=== PATIENT | female | born 1990 | race Caucasian/White ===

== ENCOUNTER → 2017-09-20 | Outpatient (CLI) | payer BC ==
[2017-09-20 16:50] LABS: BASO % 0.9 %; BASO ABS # 0.05 K/uL (0-0.2); EOS % 2.3 %; EOS ABS # 0.13 K/uL (0-0.5); HEMATOCRIT 39.5 % (37-47); HEMOGLOBIN 13.6 g/dL (12.0-16.0); IG# 0.01 K/uL (0.00-0.02); LYMPH ABS # 1.81 K/uL (1.2-3.4); MEAN CELL VOLUME 91.4 fL (80-100); MEAN CORPUSCULAR HEMOGLOBIN 31.5 pg (25-34); MEAN CORPUSCULAR HGB CONC 34.4 g/dl (32-36); MEAN PLATELET VOLUME 10.8 fL (7.4-10.4); MONO % 9.7 %; MONO ABS # 0.55 K/uL (0.11-0.59); NEUT % 54.9 %; PLATELET COUNT 220 K/uL (130-400); RED CELL DISTRIBUTION WIDTH CV 12.6 % (11.5-14.5); RED CELL DISTRIBUTION WIDTH SD 42.6 fL (36.4-46.3); WHITE BLOOD COUNT 5.65 K/uL (4.8-10.8)
[2017-09-20 17:11] LABS: ALBUMIN 4.4 gm/dl (3.4-5.0); AST/SGOT 103 U/L (15-37); BLOOD UREA NITROGEN 12 mg/dl (7-18); CALCIUM 9.1 mg/dl (8.5-10.1); CARBON DIOXIDE 27 mmol/L (21-32); CREATININE 0.76 mg/dl (0.60-1.20); GLUCOSE 87 mg/dl (70-99); POTASSIUM 3.6 mmol/L (3.5-5.1); SODIUM 136 mmol/L (136-145)
[2017-09-20 17:14] LABS: ALKALINE PHOSPHATASE 57 U/L (45-117); ALT/SGPT 184 U/L (12-78); TOTAL PROTEIN 8.3 gm/dl (6.4-8.2)
--- NOTE | 2017-10-04 06:30 | CODING QUERY NO DIAGNOSIS ---
TREATMENT RENDERED WITHOUT A DIAGNOSIS Dr. Velasquez, To promote full compliance with coding requirements relating to patient care, physician participation is requested in all cases of ruffling hemmer automatic uncertainty. Please assist us with providing a diagnosis/symptom for the test(s) below: A diagnosis/symptom was not documented on your Order. A valid diagnosis/symptom is required to bill all insurances. Please remember that we are unable to code a diagnosis of rule out, probable, possible, questionable, or suspected. Tests that require a diagnosis: * CMP DIAGNOSIS: * C-REACTIVE PROTEIN DIAGNOSIS: DATE OF SERVICE: 09/20/17 Provider Signature: Date: Thank you Daniel Pan [facility] Information Management Once completed, please kindly fax back to [phone] For questions please call [phone]
== END | disposition home or self-care (01) ==
LOC: C.LABBC 13:29
PROVIDERS: ATTEND Internal Medicine
DX: K51.00 Ulcerative (chronic) pancolitis without complications (principal); K51.90 Ulcerative colitis, unspecified, without complications

== ENCOUNTER → 2017-10-18 | Outpatient (CLI) | payer BC ==
[2017-10-18 11:26] LABS: ALBUMIN 4.3 gm/dl (3.4-5.0); ALT/SGPT 169 U/L (12-78); AST/SGOT 84 U/L (15-37); BLOOD UREA NITROGEN 9 mg/dl (7-18); CALCIUM 9.2 mg/dl (8.5-10.1); CARBON DIOXIDE 27 mmol/L (21-32); CREATININE 0.77 mg/dl (0.60-1.20); GLUCOSE 78 mg/dl (70-99); SODIUM 137 mmol/L (136-145)
[2017-10-18 11:28] LABS: ALKALINE PHOSPHATASE 56 U/L (45-117); TOTAL PROTEIN 7.9 gm/dl (6.4-8.2)
== END | disposition home or self-care (01) ==
LOC: C.LABBC 08:36
PROVIDERS: ATTEND Internal Medicine
DX: K51.90 Ulcerative colitis, unspecified, without complications (principal)

== ENCOUNTER → 2017-12-04 | Outpatient (CLI) | payer BC ==
[2017-12-04 10:54] LABS: ALBUMIN 4.1 gm/dl (3.4-5.0); ALT/SGPT 155 U/L (12-78); AST/SGOT 77 U/L (15-37); BLOOD UREA NITROGEN 10 mg/dl (7-18); CALCIUM 9.1 mg/dl (8.5-10.1); CARBON DIOXIDE 29 mmol/L (21-32); CREATININE 0.79 mg/dl (0.60-1.20); GLUCOSE 90 mg/dl (70-99); POTASSIUM 3.8 mmol/L (3.5-5.1); SODIUM 139 mmol/L (136-145)
[2017-12-04 10:57] LABS: ALKALINE PHOSPHATASE 55 U/L (45-117); TOTAL PROTEIN 7.5 gm/dl (6.4-8.2)
== END | disposition home or self-care (01) ==
LOC: C.LABBC 08:53
PROVIDERS: ATTEND Internal Medicine
DX: K51.90 Ulcerative colitis, unspecified, without complications (principal); R79.89 Other specified abnormal findings of blood chemistry

== ENCOUNTER → 2017-12-23 | Outpatient (CLI) | payer BC ==
[2017-12-23 13:29] LABS: ALBUMIN 4.2 gm/dl (3.4-5.0); BLOOD UREA NITROGEN 7 mg/dl (7-18); CALCIUM 8.8 mg/dl (8.5-10.1); CARBON DIOXIDE 26 mmol/L (21-32); CREATININE 0.77 mg/dl (0.60-1.20); GLUCOSE 82 mg/dl (70-99); SODIUM 136 mmol/L (136-145)
[2017-12-23 13:33] LABS: ALKALINE PHOSPHATASE 55 U/L (45-117); ALT/SGPT 111 U/L (12-78); AST/SGOT 57 U/L (15-37); TOTAL PROTEIN 7.5 gm/dl (6.4-8.2); TRANSFERRIN 264 mg/dl (200-360)
== END | disposition home or self-care (01) ==
LOC: C.LABBC 09:12
PROVIDERS: ATTEND Internal Medicine
DX: Z00.00 Encounter for general adult medical examination without abnormal findings (principal); K51.90 Ulcerative colitis, unspecified, without complications; R79.89 Other specified abnormal findings of blood chemistry

== ENCOUNTER → 2017-12-24 | Outpatient (CLI) | payer BC ==
--- NOTE | 2017-12-24 08:59 | DIAGNOSTIC IMAGING REPORT ---
ABDOMINAL ULTRASOUND, RIGHT UPPER QUADRANT HISTORY: R79.89 Elevated LFTs [id number]. COMPARISON: None. FINDINGS: Pancreas: The pancreas demonstrates a normal echotexture. Liver: Unremarkable. Gallbladder: No gallbladder wall thickening. No gallstones. CBD: 4 mm. Right kidney: No hydronephrosis. IMPRESSION: No significant abnormality identified within the right upper quadrant. Electronically signed by: Kael Sheth M.D. 12/24/2017 8:58 AM Dictated Date/Time: 12/24/2017 8:57 AM
== END | disposition home or self-care (01) ==
LOC: C.ULTR 08:33
PROVIDERS: ATTEND Internal Medicine
DX: R79.89 Other specified abnormal findings of blood chemistry (principal)

== ENCOUNTER 2019-05-11 14:12 | Inpatient (IN) ==
[2019-05-11] MEDS ORDERED: SODIUM CHLORIDE 0.9% 1000ML 1,000 ML IV ONE (15:10)
--- NOTE | 2019-05-11 15:50 | Emergency Department Note ---
ED Visit Note This patient was seen in concert with Dr. Nickerson and we discussed and agreed upon the history, physical, assessment and plan. See attending's note for details. . Resident Activity Tracking Resident Involvement: Resident Care Provided Care Provided: Adult ED
[2019-05-11 16:16] LABS: Hematocrit (blood only) 38.9 % (37-47); Hemoglobin 13.8 g/dL (12.0-16.0); Mean Corpuscular Hemoglobin 30.9 pg (25-34); Mean Corpuscular Hgb Conc 35.5 g/dL (32-36); Mean Corpuscular Volume 87.2 fL (80-100); Mean Platelet Volume 10.6 fL (7.4-10.4); Platelet Count 188 K/uL (130-400); RDW Coefficient of Variation 17.8 % (11.5-14.5); RDW Standard Deviation 57.3 fL (36.4-46.3); Red Blood Count 4.46 M/uL (4.2-5.4); White Blood Count 2.98 K/uL (4.8-10.8)
[2019-05-11 16:25] LABS: Appearance Urine Clear (Clear); Blood Urine Negative (Negative); Color Urine Dark Yellow; Glucose Urine UA Negative (Negative); Ketones Urine Negative (Negative); Leukocyte Esterase Urine Negative (Negative); Nitrite Urine Negative (Negative); Protein Urine Negative (Negative); Specific Gravity Urine 1.012 (1.000-1.030); Urobilinogen Urine Negative (Negative); pH Urine 6.5 (4.5-7.5)
[2019-05-11 16:31] LABS: Bilirubin Urine 2+ (Negative)
[2019-05-11 16:32] LABS: Ictotest Urine Positive (Negative)
[2019-05-11 16:39] LABS: Basophils # (auto) 0.07 K/uL (0-0.2); Basophils % (auto) 2.2 %; Eosinophils # (auto) 0.04 K/uL (0-0.5); Eosinophils % (auto) 1.2 %; Lymphocytes # (auto) 1.29 K/uL (1.2-3.4); Lymphocytes % (auto) 39.9 %; Monocytes # (auto) 0.76 K/uL (0.11-0.59); Monocytes % (auto) 23.5 %; Neutrophils # (auto) 1.07 K/uL (1.4-6.5); Neutrophils % (auto) 33.2 %
[2019-05-11 16:41] LABS: Pregnancy Test, Serum Negative (Negative)
[2019-05-11 17:06] LABS: Albumin Globulin Ratio 0.5 (0.9-2); Albumin Level 3.1 gm/dl (3.4-5.0); BUN Creatinine Ratio 5.6 (10-20); Calcium 8.8 mg/dl (8.5-10.1); Creatinine Clr Calc Pharmacy 96.1 ml/min; Est GFR (African American) 120.1; Est GFR (Non-African American) 103.6; Globulin 6.4 gm/dl (2.5-4.0); Potassium 3.7 mmol/L (3.5-5.1); Total Protein 9.5 gm/dl (6.4-8.2)
[2019-05-11] MEDS ORDERED: IOVERSOL 100ml IV PRN (17:16)
--- NOTE | 2019-05-11 17:39 | CT Scan Report ---
CT SCAN OF THE ABDOMEN AND PELVIS WITH IV CONTRAST CLINICAL HISTORY: Epigastric abdominal pain. Recent colonoscopy. COMPARISON STUDY: Abdominal ultrasound dated 12/24/2017. TECHNIQUE: Following the IV administration of 91 cc of Optiray 320, CT scan of the abdomen and pelvi s is performed from the lung bases to the proximal femora. Images are reviewed in the axial, sagittal , and coronal planes. IV contrast was administered without complication. A dose lowering technique wa s utilized adhering to the principles of ALARA. CT DOSE: 370.01 mGycm FINDINGS: Lung bases: The heart is normal in size and without pericardial effusion. The lung bases are clear. Liver: The contrast-enhanced liver is normal in size, contour, and attenuation. Fatty infiltration is noted adjacent to the falciform ligament. There is no intrahepatic biliary ductal dilatation. The he patic veins and portal veins are patent. There is periportal edema. Gallbladder: The gallbladder wall is thickened and edematous. The mucosa is hyperemic and there is pe richolecystic inflammation and trace fluid. Spleen: Normal in size and attenuation. Pancreas: Unremarkable. Adrenal glands: Unremarkable. Kidneys: The contrast enhanced kidneys are normal in size and without hydronephrosis. The kidneys enh ance symmetrically. Abdominal vasculature: The abdominal aorta is normal in course and caliber. Bowel: There is mild infiltration identified around the descending colon. No bowel obstruction is see n. The appendix is surgically absent. Peritoneum: There is no intraperitoneal free air or abdominal ascites. There is a small fat-containin g umbilical hernia. Lymphadenopathy: None. Pelvic viscera: The bladder is distended but otherwise normal in appearance. The uterus and adnexa ar e normal as visualized noting bilateral ovarian follicles. Skeletal structures: No lytic or blastic lesions are seen. IMPRESSION: 1. The gallbladder wall is thickened and edematous with associated mucosal hyperemia and pericholecys tic inflammation. Although this could potentially be related to hepatic inflammation and periportal e angela, the appearance is highly concerning for acute cholecystitis. Correlation with clinical findings , liver function studies, and right upper quadrant ultrasound is recommended. 2. Mild infiltration is suggested around the descending colon. This is nonspecific and could represen t a mild colitis or could be related to the reported history of recent colonoscopy. Again, clinical c orrelation will be required. 3. Additional findings as above. Electronically signed by: Homero Victoria M.D. 05/11/2019 5:37 PM
[2019-05-11] MEDS ORDERED: PIPERACILLIN/TAZOBACTAM 4.5 GM/120 ML BAG IV ONE (17:48)
[2019-05-11] MEDS ORDERED: PIPERACILL/TAZOBAC CONSULT ACTIVE PRN (17:48)
--- NOTE | 2019-05-11 19:26 | Emergency Department Note ---
Entered by Carmelita Petersen acting as a scribe for History of Present Illness General Chief complaint: GI Assessment Stated complaint: POST COLONOSCOPY ABD DISTENTION/PAIN Time Seen by Provider: 05/11/19 15:08 Source: patient History of Present Illness Onset (ago): day(s) 2 Location: abdomen Pain Consistency: + other (persistent) Maximum Pain Intensity: 5 Quality: + other (cramping) Exacerbated By: + other (coughing and breathing) Associated symptoms: + denies other symptoms (abnormal stools), + nausea/vomiting (Positive nauesa. Negative vomiting. ) and + other (yellow colored skin, feeling like filling up fast when she eats) The patient is a 28 year old female who presents to the Emergency Room with complaints of persistent abdominal pain starting 2 days ago. The patient states that she has a history of ulcerative colitis and had a colonoscopy done 3 days ago. She states that the day after, she started having abdominal pain and distention. She reports that the pain is mainly in her upper abdomen and is a cramping. She reports that it is worse with coughing and breathing. She states that she called her GI specialist today about it and they were going to order an abdominal x-ray, but decided to send her here instead. She notes that her h usband and she noticed that she was a little yellow in color, but didnt think it was that bad till her coworker asked her if she had had a spray mi. The patient notes that she has had a bowel movement since the colonoscopy. The patient complains of nausea and feeling like when she does eat, she fills up fast. The patient denies vomiting and abnormal stools. Home Medications Home Medications Medication Instructions Recorded Confirmed Type hydroxychloroquine 200 mg PO QAM 03/09/19 05/11/19 History mesalamine 2.4 g PO QAM 03/09/19 05/11/19 History Allergies Allergy/AdvReac Type Severity Reaction Status Date / Time avocado Allergy Hives Unverified 05/11/19 18:28 jhony Allergy Hives Unverified 05/11/19 18:27 Past Med/Surg History Medical History Oritz syndrome History of anesthesia reaction "shakes when coming out of it" History of colon polyps Migraine Systemic lupus erythematosus Ulcerative colitis Surgical History History of appendectomy History of colonoscopy History of esophagogastroduodenoscopy (EGD) History of gastric surgery removal of diverticulum History of liver biopsy 2005--normal History of tooth extraction History of wisdom tooth extraction PEG (percutaneous endoscopic gastrostomy) adjustment/replacement/removal had during gastric surgery, no longer has Family History Mother Family history of reaction to anesthesia nausea/vomiting Uncle Family hx of colon cancer Social History Preferred Language: Portuguese Communication Ability: Effective Inpatient Nursing Aide Required: No Beliefs That Will Affect Care: None marital status: Current Living Situation: Spouse current occupational status: employed Feels Safe at Home: Yes Smoking Status: Never smoker Second Hand Exposure: No ; Hx Alcohol Use: Yes Alcohol type: beer Hx Substance Use: No Review of Systems See HPI for pertinent positives & negatives. and A total of 10 systems reviewed and were otherwise negative Physical Exam Vital Signs Vital Signs - 24 hr 05/11/19 14:28 05/11/19 15:18 05/11/19 15:21 Temperature 37.1 C Temperature Source Oral Sepsis Recent Fever Within 48 Hours No Sepsis New/Unexplained Change in Mental Status No Sepsis Action Taken by Nursing No Action Required Pulse Rate 77 75 83 Pulse Rate from SpO2 Sensor 77 82 Respiratory Rate 20 14 13 Blood Pressure 125/81 128/75 Blood Pressure Mean 95 92 Blood Pressure Position Sitting Pulse Oximetry 100 99 99 Oxygen Delivery Method 05/11/19 15:30 05/11/19 16:00 05/11/19 16:25 Temperature Temperature Source Sepsis Recent Fever Within 48 Hours Sepsis New/Unexplained Change in Mental Status Sepsis Action Taken by Nursing Pulse Rate 80 75 89 Pulse Rate from SpO2 Sensor 82 74 86 Respiratory Rate 18 20 23 Blood Pressure 106/87 Blood Pressure Mean 93 Blood Pressure Position Pulse Oximetry 98 98 100 Oxygen Delivery Method Room Air 05/11/19 16:30 05/11/19 17:00 05/11/19 17:30 Temperature Temperature Source Sepsis Recent Fever Within 48 Hours Sepsis New/Unexplained Change in Mental Status Sepsis Action Taken by Nursing Pulse Rate 89 68 79 Pulse Rate from SpO2 Sensor 87 69 80 Respiratory Rate 17 13 19 Blood Pressure 112/71 106/65 Blood Pressure Mean 84 78 Blood Pressure Position Pulse Oximetry 99 98 99 Oxygen Delivery Method 05/11/19 18:00 05/11/19 18:06 05/11/19 18:30 Temperature Temperature Source Sepsis Recent Fever Within 48 Hours Sepsis New/Unexplained Change in Mental Status Sepsis Action Taken by Nursing Pulse Rate 78 78 65 Pulse Rate from SpO2 Sensor 75 79 67 Respiratory Rate 17 19 15 Blood Pressure 114/67 108/68 Blood Pressure Mean 82 81 Blood Pressure Position Pulse Oximetry 100 94 97 Oxygen Delivery Method GENERAL: sitting up in bed with a yellow hue, no acute distress, nontoxic EYE EXAM: scleral icterus OROPHARYNX: no exudate, no erythema, lips, buccal mucosa, and tongue normal and mucous membranes are moist NECK: supple, no nuchal rigidity, no adenopathy, non-tender LUNGS: Clear to auscultation. Normal chest wall mechanics HEART: no murmurs, S1 normal and S2 normal ABDOMEN: abdomen soft, tender to palpation in the epigastric region, normo- active bowel sounds, no masses, no rebound or guarding. BACK: Back is symmetrical on inspection and there is no deformity, no midline tenderness, no CVA tenderness. SKIN: no rashes and no bruising UPPER EXTREMITIES: upper extremities are grossly normal. LOWER EXTREMITIES: No pitting edema. NEURO EXAM: Normal sensorium, cranial nerves II-XII grossly intact, normal speech, no gross weakness of arms, no gross weakness of legs. Course ED COURSE: Vital signs were reviewed and showed that they were normal. The patients medical record was reviewed The above diagnostic studies were performed and reviewed. ED treatments and interventions as stated above. 1511: The resident, Amelia Boston, evaluated the patient at this time. She performed a complete history and physical examination at this time. 1539: The patient was evaluated in room C3. A complete history and physical examination was performed. 1747: Upon reevaluation, the patient is resting comfortably. I discussed my findings with the patient and she understands and agrees with the treatment plan. Based on the patients age, coexisting illnesses, exam and lab findings the decision to treat as an inpatient was made. The patient remained stable while under my care. The patient will be evaluated for further management. 1748: I discussed the patient's case with Dr. Horvath- General Surgeon. He recommends admitting to medicine and he will consult. 1750: I discussed the patient's case with Dr. Carbone- [facility] Hospitalist. She will evaluate the patient for further management. 1759: I discussed the patient's case with Dr. Gloria FELIPE. He will consult that patient on the floor. Consultations Consultation #1: I discussed the patient's case with Dr. Horvath- General Surgeon. He recommends admitting to medicine and he will consult. Time: 17:48 Consultation #2: I discussed the patient's case with Dr. Carbone- [facility] Hospitalist. She will evaluate the patient for further management. Time: 17:50 Consultation #3: I discussed the patient's case with Dr. Gloria FELIPE. He will consult that patient on the floor. Time: 17:59 Administered Medications Ioversol (Optiray 320 100ml) 91 ml IV ONCE PRN PRN Reason: Interaction Checking Stop: 05/15/19 17:15 Last Admin: 05/11/19 17:16 Dose: 91 ml Documented by: [id number] Discontinued Medications Sodium Chloride (Nss 1000ml) 1,000 mls @ 999 mls/hr IV .Q1H1M ONE Stop: 05/11/19 16:10 Last Infusion: 05/11/19 17:30 Dose: 0 mls/hr Documented by: [id number] Admin: 05/11/19 16:26 Dose: 999 mls/hr Documented by: [id number] Piperacillin Sod/Tazobactam Sod (Zosyn) 4.5 gm in 120 mls @ 240 mls/hr IV NOW ONE Stop: 05/11/19 18:17 Last Admin: 05/11/19 18:00 Dose: 240 mls/hr Documented by: [id number] Medical Decision Making Differential Diagnosis Differential diagnoses includes but is not limited to gastritis, peptic ulcer disease, GERD, gallbladder disease, pancreatitis, small bowel obstruction, acute coronary syndrome, pericarditis, ischemic bowel, irritable bowel disease, irritable bowel syndrome, appendicitis, diverticulitis, malignancy, hernia, urinary tract infection, torsion, /ectopic , perforation, trauma, infectious. Medical Records Attestation: I reviewed the patient's medical records. Home Medications Current Medication List: was personally reviewed by me Laboratory Data Attestation: I reviewed the patient's lab results. Result diagrams: 05/11/19 15:54 05/11/19 15:54 Lab Results 05/11/19 05/11/19 05/11/19 Range/Units 15:54 15:54 15:54 WBC 2.98 L (4.8-10.8) K/uL RBC 4.46 (4.2-5.4) M/uL Hgb 13.8 (12.0-16.0) g/dL Hct 38.9 (37-47) % MCV 87.2 (80-100) fL MCH 30.9 (25-34) pg MCHC 35.5 (32-36) g/dL RDW Std Deviation 57.3 H (36.4-46.3) fL RDW Coeff of Raf 17.8 H (11.5-14.5) % Plt Count 188 (130-400) K/uL MPV 10.6 H (7.4-10.4) fL Immature Gran % (Auto) 0.0 % Neut % (Auto) 33.2 % Lymph % (Auto) 39.9 % Knott % (Auto) 23.5 % Eos % (Auto) 1.2 % Baso % (Auto) 2.2 % Immature Gran # (Auto) 0.00 (0.00-0.02) K/uL Neut # (Auto) 1.07 L (1.4-6.5) K/uL Lymph # (Auto) 1.29 (1.2-3.4) K/uL Knott # (Auto) 0.76 H (0.11-0.59) K/uL Eos # (Auto) 0.04 (0-0.5) K/uL Baso # (Auto) 0.07 (0-0.2) K/uL Sodium 135 L (136-145) mmol/L Potassium 3.7 (3.5-5.1) mmol/L Chloride 102 (98-107) mmol/L Carbon Dioxide 27 (21-32) mmol/L Anion Gap 6.0 (3-11) BUN 4 L (7-18) mg/dl Creatinine 0.77 (0.6-1.2) mg/dl Est Cr Clr Drug Dosing 96.1 ml/min Est GFR ( Amer) 120.1 Est GFR (Non-Af Amer) 103.6 BUN/Creatinine Ratio 5.6 L (10-20) Glucose 95 (70-99) mg/dl Calcium 8.8 (8.5-10.1) mg/dl Total Bilirubin 12.0 H (0.2-1) mg/dl AST 974 H (15-37) U/L ALT 1275 H (12-78) U/L Alkaline Phosphatase 106 (45-117) U/L Total Protein 9.5 H (6.4-8.2) gm/dl Albumin 3.1 L (3.4-5.0) gm/dl Globulin 6.4 H (2.5-4.0) gm/dl Albumin/Globulin Ratio 0.5 L (0.9-2) Lipase 680 H (73-393) U/L HCG, Qual Negative (Negative) Urine Color Urine Appearance (Clear) Urine pH (4.5-7.5) Ur Specific Kenton (1.000-1.030) Urine Protein (Negative) Urine Glucose (UA) (Negative) Urine Ketones (Negative) Urine Blood (Negative) Urine Nitrite (Negative) Urine Bilirubin (Negative) Urine Urobilinogen (Negative) Ur Leukocyte Esterase (Negative) 05/11/19 Range/Units 15:57 WBC (4.8-10.8) K/uL RBC (4.2-5.4) M/uL Hgb (12.0-16.0) g/dL Hct (37-47) % MCV (80-100) fL MCH (25-34) pg MCHC (32-36) g/dL RDW Std Deviation (36.4-46.3) fL RDW Coeff of Raf (11.5-14.5) % Plt Count (130-400) K/uL MPV (7.4-10.4) fL Immature Gran % (Auto) % Neut % (Auto) % Lymph % (Auto) % Knott % (Auto) % Eos % (Auto) % Baso % (Auto) % Immature Gran # (Auto) (0.00-0.02) K/uL Neut # (Auto) (1.4-6.5) K/uL Lymph # (Auto) (1.2-3.4) K/uL Knott # (Auto) (0.11-0.59) K/uL Eos # (Auto) (0-0.5) K/uL Baso # (Auto) (0-0.2) K/uL Sodium (136-145) mmol/L Potassium (3.5-5.1) mmol/L Chloride (98-107) mmol/L Carbon Dioxide (21-32) mmol/L Anion Gap (3-11) BUN (7-18) mg/dl Creatinine (0.6-1.2) mg/dl Est Cr Clr Drug Dosing ml/min Est GFR ( Amer) Est GFR (Non-Af Amer) BUN/Creatinine Ratio (10-20) Glucose (70-99) mg/dl Calcium (8.5-10.1) mg/dl Total Bilirubin (0.2-1) mg/dl AST (15-37) U/L ALT (12-78) U/L Alkaline Phosphatase (45-117) U/L Total Protein (6.4-8.2) gm/dl Albumin (3.4-5.0) gm/dl Globulin (2.5-4.0) gm/dl Albumin/Globulin Ratio (0.9-2) Lipase (73-393) U/L HCG, Qual (Negative) Urine Color Dark Yellow Urine Appearance Clear (Clear) Urine pH 6.5 (4.5-7.5) Ur Specific Kenton 1.012 (1.000-1.030) Urine Protein Negative (Negative) Urine Glucose (UA) Negative (Negative) Urine Ketones Negative (Negative) Urine Blood Negative (Negative) Urine Nitrite Negative (Negative) Urine Bilirubin 2+ H (Negative) Urine Urobilinogen Negative (Negative) Ur Leukocyte Esterase Negative (Negative) Imaging Data Radiologist's Impression: Radiology results as stated below per my review and the radiologist's interpretation: ADDENDUM ADDENDUM: In addition to the above findings, the pancreas appears mildly enlarged and possibly edematous. Question stranding around the pancreatic head. This may be related to the gallbladder process. Correlate clinically and with amylase/lipase levels for evidence of pancreatitis. The gland enhances homogeneously. The splenic vein is patent. No peripancreatic fluid collection is identified. Electronically signed by: Homero Victoria M.D. 05/11/2019 5:[address] SCAN OF THE ABDOMEN AND PELVIS WITH IV CONTRAST CLINICAL HISTORY: Epigastric abdominal pain. Recent colonoscopy. COMPARISON STUDY: Abdominal ultrasound dated 12/24/2017. TECHNIQUE: Following the IV administration of 91 cc of Optiray 320, CT scan of the abdomen and pelvis is performed from the lung bases to the proximal femora. Images are reviewed in the axial, sagittal, and coronal planes. IV contrast was administered without complication. A dose lowering technique was utilized adhering to the principles of ALARA. CT DOSE: 370.01 mGycm FINDINGS: Lung bases: The heart is normal in size and without pericardial effusion. The lung bases are clear. Liver: The contrast-enhanced liver is normal in size, contour, and attenuation. Fatty infiltration is noted adjacent to the falciform ligament. There is no intrahepatic biliary ductal dilatation. The hepatic veins and portal veins are patent. There is periportal edema. Gallbladder: The gallbladder wall is thickened and edematous. The mucosa is hyperemic and there is pericholecystic inflammation and trace fluid. Spleen: Normal in size and attenuation. Pancreas: Unremarkable. Adrenal glands: Unremarkable. Kidneys: The contrast enhanced kidneys are normal in size and without hydronephrosis. The kidneys enhance symmetrically. Abdominal vasculature: The abdominal aorta is normal in course and caliber. Bowel: There is mild infiltration identified around the descending colon. No bowel obstruction is seen. The appendix is surgically absent. Peritoneum: There is no intraperitoneal free air or abdominal ascites. There is a small fat-containing umbilical hernia. Lymphadenopathy: None. Pelvic viscera: The bladder is distended but otherwise normal in appearance. The uterus and adnexa are normal as visualized noting bilateral ovarian follicles. Skeletal structures: No lytic or blastic lesions are seen. IMPRESSION: 1. The gallbladder wall is thickened and edematous with associated mucosal hyperemia and pericholecystic inflammation. Although this could potentially be related to hepatic inflammation and periportal edema, the appearance is highly concerning for acute cholecystitis. Correlation with clinical findings, liver function studies, and right upper quadrant ultrasound is recommended. 2. Mild infiltration is suggested around the descending colon. This is nonspecific and could represent a mild colitis or could be related to the repo rted history of recent colonoscopy. Again, clinical correlation will be required. 3. Additional findings as above. Electronically signed by: Homero Victoria M.D. 05/11/2019 5:37 PM Blood Pressure Blood Pressure Findings: Normal blood pressure Blood Pressure Disposition: did not require urgent referral MDM Narrative Patient is a 28-year-old female who presents the ER for right upper quadrant abdominal pain associated with jaundice. She had a colonoscopy performed by Dr. marie in case on Saturday. On Saturday the pain started. Denies any fevers. Does admit to feeling full recently. IV was established blood work was obtained and showed a mild leukopenia at 2.9 thousand. BMP was unremarkable. Bilirubin unremarkable at 12. Transaminitis with an AST of thousand and ALT of close to 1300. Lipase of 700. hCG was negative. UA was negative. CT abdomen pelvis shows cholecystitis with pancreatitis. I do favor that there is likely an obstructive pathology that were not seen currently. I discussed with general surgery and GI. Discussed with the hospitalist for admission. Patient was given IV fluids and IV Zosyn. She is updated bedside. Patient was seen inde pendently of the resident. Patient was monitored closely. She denies any alcohol or significant/large amounts of Tylenol usage. Impression & Plan Cholecystitis, Transaminitis, Pancreatitis, Elevated bilirubin Discharge Plan Visit Data Chief Complaint: GI Assessment Stated Complaint: POST COLONOSCOPY ABD DISTENTION/PAIN ED Provider: Josh Nickerson ED Midlevel Provider: Amelia Boston Discharge Problem: Cholecystitis, Transaminitis, Pancreatitis, Elevated bilirubin Patient Disposition: Being Evaluated by Hospitalist Forms Stand Alone Forms: My [facility] [place] Method Prescriptions Prescriptions: No Action hydroxychloroquine 200 mg Tablet 200 mg PO QAM RF: 0 mesalamine 1.2 gram Tablet,Delayed Release (Dr/Ec) 2.4 g PO QAM RF: 0 Referrals Referrals: PCP,NO [Primary Care Provider] - The scribe's documentation has been prepared under my direction and personally reviewed by me in its entirety. I confirm that the note above accurately reflects all work, treatment, procedures, and medical decision making performed by me.
[2019-05-11] MEDS ORDERED: POLYETHYLENE (MIRALAX) 17 GM PACK PO PRN (22:03)
[2019-05-11] MEDS ORDERED: MAGNESIUM HYDROXIDE SUSP 30 ML UDC PO PRN (22:03)
[2019-05-11] MEDS ORDERED: ZOLPIDEM TARTRATE 5 MG TAB PO PRN (22:03)
[2019-05-11] MEDS ORDERED: PROMETHAZINE HCL 25 MG in SODIUM CHLORIDE 0.9% 50 ML IV PRN (22:03)
--- NOTE | 2019-05-11 22:22 | History & Physical Report ---
Date of Service May 11, 2019 Assessment & Plan (1) Cholecystitis: Admits to [facility] Vital signs every 4 hours Keep n.p.o. IV fluid hydration with normal saline at 100 cc/h Discontinued Zosyn because it may elevate transaminases, and started ceftriaxone and metronidazole night resolved for acute cholecystitis We will do viral hepatic panel Follow-up CBC, CMP, liver enzymes daily and trend down GI consulted US right upper quadrant pending Replenish electrolytes Pain management with morphine sulfate IV Zofran and Phenergan for nausea and vomiting Hold on on DVT prophylaxis as patient is vomiting and may tear her esophagus Instead will use SCDs and teds Full code Present on Admission?: Yes (2) Transaminitis: Trend down transaminases, avoid hepatotoxic agents Present on Admission?: Yes (3) Elevated bilirubin: As the above Present on Admission?: Yes (4) Neutropenia: Unclear origin possibly due to infection. Monitor WBCs daily Blood cultures pending Present on Admission?: Yes (5) Ulcerative colitis: Stable now, continue home medicine hydroxychloroquine and mesalamine Present on Admission?: Yes History of Present Illness Chief Complaint: Abdominal pain and nausea Primary Care Provider: NO PCP Patient is a 28 years old female with past medical history of ulcerative colitis, lupus and Raynaud's phenomenon who presents to the emergency room with complaints of persistent abdominal pain starting 2 days ago. Patient had colonoscopy done 3 days ago. She states that day after colonoscopy she started to have abdominal pain and distention. She reports that the pain is mainly in the upper abdomen and it is cramping. She reports that it is worse with coughing and breathing. Patient states that she called Dr. Ron See, GI specialist today and supposed to go to his office to have abdominal x-rays done, but instead he decided to send her to the emergency room. Patient had bowel movement since colonoscopy and it was normal in consistency. Patient said that she lost appetite and she feels easily satiety. Patient denies fever, chills, headache, chest pain, frequency, urgency, hematemesis, melena, hemoptysis, hematuria or dysuria. Labs are reviewed: And it shows neutropenia of 2.98, hemoglobin 13.8, hematocrit of 38.9, platelets of 188, sodium 135, potassium 3.7, BUN 4, creatinine 0.77, GFR 103.6,, AST 974, ALT 1275, alkaline phosphatase 08/12/2005, lipase 680, beta-hCG negative. Urine all negative except 2+ bilirubin. Alysa screen from before negative, anti-smooth muscles antibodies from before 1: 20, liver/kidney microsomal antibody less than 20. CT abdomen pelvis: The goal breath of water is is thickened and adenomatosis with associated mucosal hyperemia and troy-cholecyst to take inflammation. Although this could potentially be related to hepatic inflammation and periportal edema the appearance is highly concerning for acute cholecystitis. Correlation with clinical findings liver function studies and right upper quadrant ultrasound is recommended. Mild infiltration is suggested around the descending colon there is nonspecific and could represent mild colitis or could be related to the reported history of recent colonoscopy. A decision was made to admit patient to medicine for treatment of acute cholecystitis, transaminitis and abdominal pain. Allergies Allergy/AdvReac Type Severity Reaction Status Date / Time avocado Allergy Hives Unverified 05/11/19 18:28 jhony Allergy Hives Unverified 05/11/19 18:27 No Known Drug Allergies Allergy Unknown Verified 05/11/19 22:08 Home Medications Home Medications Medication Instructions Recorded Confirmed Type hydroxychloroquine 200 mg PO QAM 03/09/19 05/11/19 History mesalamine 2.4 g PO QAM 03/09/19 05/11/19 History Past Med/Surg History Medical History Ortiz syndrome History of anesthesia reaction "shakes when coming out of it" History of colon polyps Migraine Systemic lupus erythematosus Ulcerative colitis Surgical History History of appendectomy History of colonoscopy History of esophagogastroduodenoscopy (EGD) History of gastric surgery removal of diverticulum History of liver biopsy 2005--normal History of tooth extraction History of wisdom tooth extraction PEG (percutaneous endoscopic gastrostomy) adjustment/replacement/removal had during gastric surgery, no longer has Family History Mother Family history of reaction to anesthesia nausea/vomiting Uncle Family hx of colon cancer Social History Preferred Language: Russian Communication Ability: Effective Is Technician Required: No Beliefs That Will Affect Care: None marital status: Current Living Situation: Spouse current occupational status: employed Feels Safe at Home: Yes Safety Concerns: Feels Safe At This Time Smoking Status: Never smoker Second Hand Exposure: No ; Hx Alcohol Use: Yes Alcohol type: beer Hx Substance Use: No Review of Systems Review of Systems: All systems reviewed & are unremarkable except as noted in HPI & below Physical Exam Constitutional: WD/WN, vitals as above well developed and well nourished Eyes: PERRL, conjunctivae normal, anicteric sclerae ENMT: external ear and nose normal, oropharynx normal Neck: trachea midline, no thyromegaly Respiratory: normal respiratory effort, lungs clear to auscultation Cardiovascular: RRR, no murmur, no edema Gastrointestinal (Abdomen): Inspection/Auscultation: abdomen normal to inspection, normal bowel sounds and + abdominal surgical scar Percussion/Palpation: + abdomen tender (Reports epigastric pain), abdomen soft and normal to percussion Musculoskeletal: no cyanosis or clubbing, extremities motor strength 5/5 Skin: no rashes, warm and dry Neurologic: patellar DTR's 2+ bilat, sensation intact Psychiatric: A+Ox3, euthymic affect Lymphatic: no cervical or axillary lymphadenopathy Results & Data Vital Signs (Past 12 Hours) Vital Signs Temp Pulse Pulse Resp BP BP Pulse Ox 05/11/19 21:42 36.7 C 70 14 105/70 97 05/11/19 21:00 68 68 14 101/62 102/61 98 05/11/19 20:30 67 15 101/66 97 05/11/19 20:00 64 16 97/71 L 98 05/11/19 19:30 68 16 104/71 98 05/11/19 19:00 65 15 105/70 97 05/11/19 18:30 65 15 108/68 97 05/11/19 18:06 78 19 114/67 94 05/11/19 18:00 78 17 100 05/11/19 17:30 79 19 99 05/11/19 17:00 68 13 106/65 98 05/11/19 16:30 89 17 112/71 99 05/11/19 16:25 89 23 106/87 100 05/11/19 16:00 75 20 98 05/11/19 15:30 80 18 98 05/11/19 15:21 83 13 99 05/11/19 15:18 75 14 128/75 99 05/11/19 14:28 37.1 C 77 20 125/81 100 Code Status & VTE Plan Code Status Full code VTE Prophylaxis Plan VTE Prophylaxis will be ordered: No PG Care Time/CCT Total # of Minutes Spent Total Time Spent with Patient: Total time spent is greater than 50% in coordination of care (as documented) at patient's floor/unit and/or counseling patient:
[2019-05-11] MEDS: MoRPHine SULFATE 2 MG/ML CARP IV PRN (22:24)
[2019-05-11] MEDS: SODIUM CHLORIDE 0.9% 1000ML 1,000 ML IV SCH (22:24)
[2019-05-11] MEDS ORDERED: INFLUENZA VIRUS QUAD VACCINE 0.5 ML SYR IM ONE (22:45)
[2019-05-11] MEDS ORDERED: INFLUENZA ADMINISTRATION CHARGE ONE (22:45)
[2019-05-11 23:11] LABS: Albumin Globulin Ratio 0.5 (0.9-2); Albumin Level 2.9 gm/dl (3.4-5.0); BUN Creatinine Ratio 4.8 (10-20); Bilirubin,Total 11.8 mg/dl (0.2-1); Calcium 8.7 mg/dl (8.5-10.1); Creatinine Clr Calc Pharmacy 94.6 ml/min; Globulin 6.1 gm/dl (2.5-4.0); Potassium 3.5 mmol/L (3.5-5.1)
[2019-05-11] MEDS: metroNIDAZOLE 500 MG/100 ML BAG IV SCH (23:28)
[2019-05-12] MEDS: cefTRIAXone SODIUM 1,000 MG in DEXTROSE 5% 50 ML IV SCH ×2 (00:38→23:32)
[2019-05-12 05:59] LABS: Hematocrit (blood only) 37.9 % (37-47); Hemoglobin 13.6 g/dL (12.0-16.0); Mean Corpuscular Hemoglobin 31.5 pg (25-34); Mean Corpuscular Hgb Conc 35.9 g/dL (32-36); Mean Corpuscular Volume 87.7 fL (80-100); Mean Platelet Volume 10.2 fL (7.4-10.4); Platelet Count 183 K/uL (130-400); RDW Coefficient of Variation 18.2 % (11.5-14.5); RDW Standard Deviation 58.8 fL (36.4-46.3); Red Blood Count 4.32 M/uL (4.2-5.4); White Blood Count 3.23 K/uL (4.8-10.8)
[2019-05-12] MEDS: metroNIDAZOLE 500 MG/100 ML BAG IV SCH ×3 (06:20→22:30)
[2019-05-12 06:40] LABS: Albumin Globulin Ratio 0.5 (0.9-2); Albumin Level 2.7 gm/dl (3.4-5.0); BUN Creatinine Ratio 6.3 (10-20); Bilirubin,Total 12.1 mg/dl (0.2-1); Creatinine Clr Calc Pharmacy 105.9 ml/min; Est GFR (African American) 136.7; Globulin 5.9 gm/dl (2.5-4.0); Potassium 3.8 mmol/L (3.5-5.1); Total Protein 8.6 gm/dl (6.4-8.2)
[2019-05-12 07:11] LABS: Basophils # (auto) 0.07 K/uL (0-0.2); Basophils % (auto) 2.2 %; Eosinophils # (auto) 0.08 K/uL (0-0.5); Eosinophils % (auto) 2.5 %; Lymphocytes # (auto) 1.53 K/uL (1.2-3.4); Lymphocytes % (auto) 47.4 %; Monocytes # (auto) 0.94 K/uL (0.11-0.59); Monocytes % (auto) 29.1 %; Neutrophils # (auto) 0.61 K/uL (1.4-6.5); Neutrophils % (auto) 18.8 %
--- NOTE | 2019-05-12 07:16 | Ultrasound Report ---
BILIARY ULTRASOUND CLINICAL HISTORY: Abnormal CT scan. Possible acute cholecystitis. COMPARISON STUDY: CT scan dated 05/11/2019 FINDINGS: The pancreas appear normal as visualized. The gallbladder was not distended. No calculi were visualized. There was gallbladder wall thickening (4 mm). The common bile duct measured 5 mm. There is no right-sided hydronephrosis. IMPRESSION: 1. Mild gallbladder wall thickening, but no calculi identified, and no evidence of gallbladder disten tion. Electronically signed by: Roc Cee M.D. 05/12/2019 7:14 AM
--- NOTE | 2019-05-12 07:56 | Surgery Consultation ---
Date of Consultation May 12, 2019 Assessment & Plan (1) Transaminitis: Atypical presentation for cholecystitis as suggested by CT. U/S with mild wall thickening, no stones. Await GI evaluation, possible MRCP. as above. pt was getting her mrcp so I could not examine her. all labs/radiolo gy reviewed. no indications for surgery at this time. suspect viral hepatitis. will follow along for now. History of Present Illness Attending Physician: Carroll Freeman MD History of Present Illness 28 y/o female with ulcerative colitis had colonoscopy on Saturday and had epigastric pain/cramping over the weekend. Was referred to ED yesterday by telephone from GI clinic. Began to notice jaundice increasing while in the ED. No history of biliary colic. Mostly vegetarian diet. No back pain. No fevers or chills. No medication changes. Allergies Allergy/AdvReac Type Severity Reaction Status Date / Time avocado Allergy Hives Unverified 05/11/19 18:28 jhony Allergy Hives Unverified 05/11/19 18:27 No Known Drug Allergies Allergy Unknown Verified 05/11/19 22:08 Home Medications Home Medications Medication Instructions Recorded Confirmed Type hydroxychloroquine 200 mg PO QAM 03/09/19 05/11/19 History mesalamine 2.4 g PO QAM 03/09/19 05/11/19 History Patient History Medical History Ortiz syndrome History of anesthesia reaction "shakes when coming out of it" History of colon polyps Migraine Systemic lupus erythematosus Ulcerative colitis Surgical History History of appendectomy History of colonoscopy History of esophagogastroduodenoscopy (EGD) History of gastric surgery removal of diverticulum History of liver biopsy 2005--normal History of tooth extraction History of wisdom tooth extraction PEG (percutaneous endoscopic gastrostomy) adjustment/replacement/removal had during gastric surgery, no longer has Family History Mother Family history of reaction to anesthesia nausea/vomiting Uncle Family hx of colon cancer Social History Preferred Language: Eritrean Communication Ability: Effective 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 Beliefs That Will Affect Care: None marital status: Current Living Situation: Spouse current occupational status: employed Feels Safe at Home: Yes Safety Concerns: Feels Safe At This Time Smoking Status: Never smoker Second Hand Exposure: No ; Hx Alcohol Use: Yes Alcohol type: beer Hx Substance Use: No Review of Systems Constitutional: no fever, no chills and no anorexia Gastrointestinal: + abdominal pain; no nausea and no vomiting Physical Exam Constitutional: WD/WN, vitals as above Respiratory: normal respiratory effort, lungs clear to auscultation Cardiovascular: RRR, no murmur, no edema Gastrointestinal (Abdomen): Inspection/Auscultation: + abdominal surgical scar (upper midline); abdomen not distended Percussion/Palpation: abdomen soft; abdomen nontender (nontender RUQ) and no guarding Skin: + jaundice Results & Data Vital Signs (Past 12 Hours) Vital Signs Temp Pulse Pulse Pulse Resp BP BP 05/12/19 07:20 36.8 C 77 18 100/63 05/12/19 05:40 37.1 C 75 16 109/74 05/12/19 00:04 36.9 C 16 98/63 L 05/11/19 21:42 36.7 C 70 14 105/70 05/11/19 21:00 68 68 14 101/62 102/61 05/11/19 20:30 67 15 101/66 05/11/19 20:00 64 16 97/71 L Pulse Ox 05/12/19 07:20 97 05/12/19 05:40 97 05/12/19 00:04 97 05/11/19 21:42 97 05/11/19 21:00 98 05/11/19 20:30 97 05/11/19 20:00 98 PG Care Time/CCT Total # of Minutes Spent Total Time Spent with Patient: Total time spent is greater than 50% in coordination of care (as documented) at patient's floor/unit and/or counseling patient:
[2019-05-12] MEDS: MoRPHine SULFATE 2 MG/ML CARP IV PRN ×2 (08:01→16:37)
[2019-05-12 09:10] LABS: Hepatitis B Surface Antigen Neg (Neg)
[2019-05-12] MEDS: SODIUM CHLORIDE 0.9% 1000ML 1,000 ML IV SCH (09:34)
[2019-05-12] MEDS: HYDROXYCHLOROQUINE SULFATE 200 MG TAB PO SCH (09:36)
[2019-05-12 09:40] LABS: Hepatitis C IgG 13Yrs+Old_Rflx Neg (Neg)
--- NOTE | 2019-05-12 10:17 | Gastrointestinal Consultation ---
Date of Consultation May 12, 2019 Assessment & Plan (1) Neutropenia: (2) Transaminitis: (3) Ulcerative colitis: (4) Elevated bilirubin: Diff dx: viral vs medication induced (?propofol, hydroxychloroquine is rare and not associated with significant transaminitis) vs autoimmune vs biliary obstruction vs other. Given the neutropenia, suspect viral etiology. 1. Await MRCP as ordered. If negative, recommend d/c antibiotics which can worsen transaminitis. 2. Add CMV, EBV, AMA and PT/INR. 3. Trend liver panel, PT/INR and monitor for s/s of encephalopathy. 4. Continue supportive medical management. Supervising Physician Co-Signing Physician Notes Agree with RACHID Guerrier Gen: Obvious jaundice Abd: Soft, Tender mid-epigastric area, ND Check INR in 6 hours if worsening, could consider transfer to Liver transplant center Acute Hepatitis workup pending She does report a history of a liver biopsy in 2008, secondary to elevated liver panel. Will attempt to get copy of liver biopsy. Continue supportive care History of Present Illness Reason for Consultation: Transaminitis Requesting Physician: Dr. 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 Velasquez. She reports the pain as aching in nature, localized and rated 6/10 in intensity but reduced to 3/10 with opioid analgesics. She denies any nausea, vomiting or diarrhea. No fevers/chills. She does report yellowing of the skin and associated dark urine. She denies any new medications but did receive Propofol anesthesia. No Tylenol use. From review of laboratory testing, she is neutropenic. Normal H&H. Liver panel is significantly elevated with TB 12.1, AST 1051, ALT 1214, but normal ALP of 93. Lipase 616. Possible periportal and pancreatic edema on imaging. Questions gall bladder wall thickening without biliary ductal dilation or apparent cholelithiasis. Surgery has evaluated the patient and is recommending MRCP evaluation which is pending. Allergies Allergy/AdvReac Type Severity Reaction Status Date / Time avocado Allergy Hives Unverified 05/11/19 18:28 jhony Allergy Hives Unverified 05/11/19 18:27 No Known Drug Allergies Allergy Unknown Verified 05/11/19 22:08 Home Medications Home Medications Medication Instructions Recorded Confirmed Type hydroxychloroquine 200 mg PO QAM 03/09/19 05/11/19 History mesalamine 2.4 g PO QAM 03/09/19 05/11/19 History Patient History Medical History Ortiz syndrome History of anesthesia reaction "shakes when coming out of it" History of colon polyps Migraine Systemic lupus erythematosus Ulcerative colitis Surgical History History of appendectomy History of colonoscopy History of esophagogastroduodenoscopy (EGD) History of gastric surgery removal of diverticulum History of liver biopsy 2005--normal History of tooth extraction History of wisdom tooth extraction PEG (percutaneous endoscopic gastrostomy) adjustment/replacement/removal had during gastric surgery, no longer has Family History Mother Family history of reaction to anesthesia nausea/vomiting Uncle Family hx of colon cancer Social History Preferred Language: Armenian Communication Ability: Effective 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 Beliefs That Will Affect Care: None marital status: Current Living Situation: Spouse current occupational status: employed Feels Safe at Home: Yes Safety Concerns: Feels Safe At This Time Smoking Status: Never smoker Second Hand Exposure: No ; Hx Alcohol Use: Yes Alcohol type: beer Hx Substance Use: No Review of Systems Review of Systems: All systems reviewed & are unremarkable except as noted in HPI & below Physical Exam Constitutional: WD/WN, vitals as above Eyes: sclera icteric bilaterally Neck: normal visual inspection Respiratory: normal respiratory effort, lungs clear to auscultation Cardiovascular: Rate/Rhythm: regular rate and regular rhythm Gastrointestinal (Abdomen): Inspection/Auscultation: normal bowel sounds Percussion/Palpation: + abdomen tender (epigastric) and abdomen soft Musculoskeletal: no cyanosis or clubbing, extremities motor strength 5/5 Skin: + jaundice Psychiatric: A+Ox3, euthymic affect Results & Data Vital Signs (Past 12 Hours) Vital Signs Temp Pulse Resp BP Pulse Ox 05/12/19 07:20 36.8 C 77 18 100/63 97 05/12/19 05:40 37.1 C 75 16 109/74 97 05/12/19 00:04 36.9 C 16 98/63 L 97 Laboratory Results Abnormal lab results 05/11/19 05/11/19 05/11/19 Range/Units 15:54 15:54 15:57 WBC 2.98 L (4.8-10.8) K/uL RDW Std Deviation 57.3 H (36.4-46.3) fL RDW Coeff of Raf 17.8 H (11.5-14.5) % MPV 10.6 H (7.4-10.4) fL Neut # (Auto) 1.07 L (1.4-6.5) K/uL Richardson # (Auto) 0.76 H (0.11-0.59) K/uL Sodium 135 L (136-145) mmol/L BUN 4 L (7-18) mg/dl BUN/Creatinine Ratio 5.6 L (10-20) Calcium (8.5-10.1) mg/dl Total Bilirubin 12.0 H (0.2-1) mg/dl AST 974 H (15-37) U/L ALT 1275 H (12-78) U/L Total Protein 9.5 H (6.4-8.2) gm/dl Albumin 3.1 L (3.4-5.0) gm/dl Globulin 6.4 H (2.5-4.0) gm/dl Albumin/Globulin Ratio 0.5 L (0.9-2) Lipase 680 H (73-393) U/L Urine Bilirubin 2+ H (Negative) 05/11/19 05/12/19 05/12/19 Range/Units 22:13 05:41 05:41 WBC 3.23 L (4.8-10.8) K/uL RDW Std Deviation 58.8 H (36.4-46.3) fL RDW Coeff of Raf 18.2 H (11.5-14.5) % MPV (7.4-10.4) fL Neut # (Auto) 0.61 L* (1.4-6.5) K/uL Richardson # (Auto) 0.94 H (0.11-0.59) K/uL Sodium (136-145) mmol/L BUN 4 L 4 L (7-18) mg/dl BUN/Creatinine Ratio 4.8 L 6.3 L (10-20) Calcium 8.0 L (8.5-10.1) mg/dl Total Bilirubin 11.8 H 12.1 H (0.2-1) mg/dl AST 968 H 1051 H (15-37) U/L ALT 1249 H 1214 H (12-78) U/L Total Protein 9.0 H 8.6 H (6.4-8.2) gm/dl Albumin 2.9 L 2.7 L (3.4-5.0) gm/dl Globulin 6.1 H 5.9 H (2.5-4.0) gm/dl Albumin/Globulin Ratio 0.5 L 0.5 L (0.9-2) Lipase 616 H (73-393) U/L Urine Bilirubin (Negative) PG Care Time/CCT Total # of Minutes Spent Total Time Spent with Patient: Total time spent is greater than 50% in coordination of care (as documented) at patient's floor/unit and/or counseling patient:
[2019-05-12 10:42] LABS: INR 1.5 (0.9-1.1); Prothrombin Time 14.5 Seconds (9.0-12.0)
--- NOTE | 2019-05-12 12:02 | Magnetic Resonance Report ---
MRCP CLINICAL HISTORY: Transaminitis. Elevated bilirubin. Jaundice. COMPARISON STUDY: Abdominal CT an abdominal ultrasound dated 05/11/2019. TECHNIQUE: Abdominal MRCP is performed utilizing various T2-weighted sequences in the axial and coron al planes. IV contrast was not administered for this examination. 3-D reformats are created and asses sed. FINDINGS: The gallbladder is not distended. The gallbladder wall is markedly thickened and edematous and there is trace pericholecystic fluid. No gallstones are identified. There is no intra or extrahepatic bilia ry ductal dilatation. The common bile duct measures up to 5 mm. There are no filling defects to sugge st choledocholithiasis. The pancreatic duct is normal in caliber. The liver is top normal in size measuring 17.6 cm in length. Significant periportal edema is again no sarita. The pancreas appears mildly enlarged. Mild fluid is again suggested around the pancreatic head. No organized abdominal fluid collection is seen. The adrenal glands, kidneys, and spleen are grossly normal. The abdominal aorta is normal in caliber. There is no bowel obstruction. A fat-containing umb ilical hernia is noted. No osseous lesion is suspected. There is no pleural effusion. IMPRESSION: 1. There is no intra-aortic extrahepatic biliary ductal dilatation. There are no gallstones or eviden ce of choledocholithiasis. 2. There is significant hepatic periportal edema. 3. The gallbladder is decompressed. The gallbladder wall is thickened and edematous and there is trac e pericholecystic fluid. This is likely related to adjacent hepatic inflammation. Cholecystitis is co nsidered less likely and clinical correlation will be required. 4. The pancreas appears mildly enlarged and fluid is again suggested adjacent to the pancreatic head. Correlate clinically and with laboratory studies for evidence of pancreatitis. Electronically signed by: Homero Victoria M.D. 05/12/2019 12:01 PM
[2019-05-12] MEDS: ONDANSETRON INJ 2 MG/ML 2 ML VIAL IV PRN ×2 (12:15→18:13)
[2019-05-12 14:40] LABS: Albumin Level 2.6 gm/dl (3.4-5.0); BUN Creatinine Ratio 8.8 (10-20); Calcium 8.6 mg/dl (8.5-10.1); Creatinine Clr Calc Pharmacy 107.5 ml/min; Est GFR (African American) 137.4; Est GFR (Non-African American) 118.5; Potassium 3.9 mmol/L (3.5-5.1)
[2019-05-12 14:44] LABS: Albumin Globulin Ratio 0.4 (0.9-2); Bilirubin,Total 12.9 mg/dl (0.2-1); Globulin 5.9 gm/dl (2.5-4.0); Total Protein 8.5 gm/dl (6.4-8.2)
--- NOTE | 2019-05-12 15:35 | Hospitalist Progress Note ---
Date of Service May 12, 2019 Assessment & Plan (1) Transaminitis: Continue IV fluid hydration with normal saline at 100 cc/h Viral hepatic panel pending GI consulted - discussed following MRCP and they feel this is likely viral vs propofol received during recent colonoscopy. Interestingly, Ms. Malin had a biopsy in 2008 for elevated transaminases. GI did discuss with her the possibility that she has a more chronic process going on at this time Pain management with morphine sulfate IV Zofran and Phenergan for nausea and vomiting avoid hepatotoxic agents MRCP as below Transaminases continued to rise a bit this afternoon - AST is 1201, ALT is 1244, INR remained the same at 1.5 this afternoon. Would have very low threshold for transfer to tertiary care ie. any change in mental status or any increase in INR. Will repeat CMP tonight, INR am (2) Elevated bilirubin: Does not appear to be cholecystitis or any biliary ductal blockage. Bili 12.9. MRCP 05/12 IMPRESSION: 1. There is no intra-aortic extrahepatic biliary ductal dilatation. There are no gallstones or evidence of choledocholithiasis. 2. There is significant hepatic periportal edema. 3. The gallbladder is decompressed. The gallbladder wall is thickened and edematous and there is trace pericholecystic fluid. This is likely related to adjacent hepatic inflammation. Cholecystitis is considered less likely and clinical correlation will be required. (3) Neutropenia: Unclear origin possibly due to infection. Monitor WBCs daily Blood cultures pending (4) Ulcerative colitis: Stable now, continue home medicine hydroxychloroquine and mesalamine (5) Pancreatitis: MRCP showed the pancreas appears mildly enlarged and fluid is again sugg ested adjacent to the pancreatic head. Lipase 616 Continue ceftriaxone and metronidazole Continue NPO and IVF - change IVF to [id number] for mild hypoglycemia Repeat lipase am (6) DVT prophylaxis: SCDs, hold chemoprophylaxis for elevated INR Subjective Ms. Malin has some mild abdominal pain but otherwise has no complaints. She is pleasant and oriented. Review of Systems Review of Systems: All systems reviewed & are unremarkable except as noted in HPI & below Physical Exam Physical Exam: General: no distress Eyes: normal inspection, PERLL Respiratory: chest non tender, clear to auscultation, normal breath sounds, no respiratory distress, no accessory muscle use Cardiac: regular rate and rhythm, no rub or gallop, no murmur, no edema, no jvd GI/: active bowel sounds, tender abdomen to palpation, soft, non distended Extremities: normal range of motion, normal strength, non tender Neuro/Psych: alert and oriented x 3, normal mood and affect Skin: mild jaundice, dry Results & Data Vital Signs (Past 12 Hours) Vital Signs Temp Pulse Resp BP Pulse Ox 05/12/19 15:02 36.7 C 80 18 100/64 96 05/12/19 07:20 36.8 C 77 18 100/63 97 05/12/19 05:40 37.1 C 75 16 109/74 97 PG Care Time/CCT Total # of Minutes Spent Total Time Spent with Patient: Total time spent is greater than 50% in coordination of care (as documented) at patient's floor/unit and/or counseling patient: (1) Pancreatitis Acute pancreatitis complication: unspecified Chronicity: acute Pancreatitis type: unspecified pancreatitis type Qualified Code(s): K85.90 - Acute pancreatitis without necrosis or infection, unspecified
[2019-05-12 16:14] LABS: INR 1.5 (0.9-1.1); Prothrombin Time 14.6 Seconds (9.0-12.0)
[2019-05-12] MEDS: D5W AND NSS 1,000 ML IV SCH (17:38)
[2019-05-12 23:13] LABS: Albumin Globulin Ratio 0.4 (0.9-2); Albumin Level 2.5 gm/dl (3.4-5.0); BUN Creatinine Ratio 7.3 (10-20); Bilirubin,Total 12.7 mg/dl (0.2-1); Calcium 8.4 mg/dl (8.5-10.1); Creatinine Clr Calc Pharmacy 105.9 ml/min; Est GFR (African American) 136.7; Globulin 5.8 gm/dl (2.5-4.0); Potassium 3.8 mmol/L (3.5-5.1); Total Protein 8.3 gm/dl (6.4-8.2)
[2019-05-12] MEDS: ALUMINUM/MAGNESIUM SUSP 30 ML UDC PO PRN (23:29)
[2019-05-13] MEDS: MoRPHine SULFATE 2 MG/ML CARP IV PRN (02:01)
[2019-05-13] MEDS: D5W AND NSS 1,000 ML IV SCH ×2 (03:46→13:51)
[2019-05-13 05:29] LABS: Hemoglobin 11.8 g/dL (12.0-16.0); Mean Corpuscular Hemoglobin 30.4 pg (25-34); Mean Corpuscular Hgb Conc 34.7 g/dL (32-36); Mean Corpuscular Volume 87.6 fL (80-100); Mean Platelet Volume 10.4 fL (7.4-10.4); Platelet Count 192 K/uL (130-400); RDW Coefficient of Variation 18.4 % (11.5-14.5); RDW Standard Deviation 59.7 fL (36.4-46.3); Red Blood Count 3.88 M/uL (4.2-5.4); White Blood Count 1.89 K/uL (4.8-10.8)
[2019-05-13 05:44] LABS: INR 1.5 (0.9-1.1); Partial Thromboplastin Ratio 1.3; Partial Thromboplastin Time 34.2 Seconds (21.0-31.0); Prothrombin Time 14.6 Seconds (9.0-12.0)
[2019-05-13] MEDS: metroNIDAZOLE 500 MG/100 ML BAG IV SCH ×2 (05:56→13:51)
[2019-05-13 06:32] LABS: Albumin Globulin Ratio 0.4 (0.9-2); Albumin Level 2.4 gm/dl (3.4-5.0); BUN Creatinine Ratio 5.3 (10-20); Bilirubin,Total 12.6 mg/dl (0.2-1); Calcium 7.7 mg/dl (8.5-10.1); Creatinine Clr Calc Pharmacy 101.3 ml/min; Est GFR (African American) 134.8; Est GFR (Non-African American) 116.3; Globulin 5.5 gm/dl (2.5-4.0); Potassium 3.7 mmol/L (3.5-5.1); Total Protein 7.9 gm/dl (6.4-8.2)
[2019-05-13 06:40] LABS: Fibrinogen 158 mg/dl (184-400)
[2019-05-13 07:06] LABS: Basophils # (auto) 0.07 K/uL (0-0.2); Basophils % (auto) 3.7 %; Eosinophils # (auto) 0.07 K/uL (0-0.5); Eosinophils % (auto) 3.7 %; Lymphocytes # (auto) 0.74 K/uL (1.2-3.4); Lymphocytes % (auto) 39.2 %; Monocytes # (auto) 0.65 K/uL (0.11-0.59); Monocytes % (auto) 34.4 %; Neutrophils # (auto) 0.36 K/uL (1.4-6.5)
[2019-05-13] MEDS: HYDROXYCHLOROQUINE SULFATE 200 MG TAB PO SCH (09:26)
--- NOTE | 2019-05-13 11:42 | Surgery Progress Note ---
Date of Service May 13, 2019 Assessment & Plan (1) Transaminitis: no surgical indications at this time will sign off please call if we can assist. (2) Pancreatitis: (3) Neutropenia: Subjective pt seen. feeling ok other than MORENO and fatique. Physical Exam Physical Exam: alert/oriented. nad. +jaundice no resp distress abd: soft. minimal ttp. no g/r/r Results & Data Vital Signs (Past 12 Hours) Vital Signs Temp Pulse Resp BP Pulse Ox 05/13/19 07:40 36.8 C 66 18 96/60 L 97 05/13/19 02:05 36.9 C 66 18 103/66 97 PG Care Time/CCT Total # of Minutes Spent Total Time Spent with Patient: Total time spent is greater than 50% in coordination of care (as documented) at patient's floor/unit and/or counseling patient: (1) Pancreatitis Acute pancreatitis complication: unspecified Chronicity: acute Pancreatitis type: unspecified pancreatitis type Qualified Code(s): K85.90 - Acute pancreatitis without necrosis or infection, unspecified
--- NOTE | 2019-05-13 11:51 | Gastroenterology Progress Note ---
Date of Service May 13, 2019 Assessment & Plan (1) Transaminitis: (2) Ulcerative colitis: (3) Neutropenia: 1. Await pending laboratory testing. 2. Have requested our office to attempt to obtain prior liver biopsy results. 3. ? need for EUS with liver biopsy. 4. Clear liquids today as lipase is normal. 5. Continue supportive care and trend liver panel as well as INR. Supervising Physician Co-Signing Physician Notes Agree with Suma Akers I reviewed old records at the patient's bedside. Specifically her liver biopsy in 2008, was not consistent with Autoimmune hepatitis, and was non-specific. She had a very extensive workup including evaluation for Viral Hepatitis, Alfredo's disease, Hemochromatosis and Alpha-1 antitrypsin Abd: Soft, NT, ND, +BS Liver panel is essentially unchanged Consider EUS/Liver biopsy tomorrow Continue supportive care Subjective Patient remains on neutropenic precautions. Acute hep B and C negative. CMV, EBV and viral studies pending. She is reporting a mild headache but is otherwise without any complaints. Remains NPO. Lipase has normalized. Liver panel relatively unchanged. Dr. Velasquez has requested copy of the patient's prior liver biopsy. Review of Systems Review of Systems: All systems reviewed & are unremarkable except as noted in HPI & below Physical Exam Constitutional: WD/WN, vitals as above Psychiatric: A+Ox3, euthymic affect Results & Data Vital Signs (Past 12 Hours) Vital Signs Temp Pulse Resp BP Pulse Ox 05/13/19 07:40 36.8 C 66 18 96/60 L 97 05/13/19 02:05 36.9 C 66 18 103/66 97 Laboratory Results Abnormal lab results 05/12/19 05/12/19 05/12/19 Range/Units 13:48 15:47 21:56 WBC (4.8-10.8) K/uL RBC (4.2-5.4) M/uL Hgb (12.0-16.0) g/dL Hct (37-47) % RDW Std Deviation (36.4-46.3) fL RDW Coeff of Raf (11.5-14.5) % Neut # (Auto) (1.4-6.5) K/uL Lymph # (Auto) (1.2-3.4) K/uL Dunn # (Auto) (0.11-0.59) K/uL PT 14.6 H (9.0-12.0) Seconds INR 1.5 H (0.9-1.1) APTT (21.0-31.0) Seconds Fibrinogen (184-400) mg/dl BUN 6 L 5 L (7-18) mg/dl BUN/Creatinine Ratio 8.8 L 7.3 L (10-20) Glucose 67 L (70-99) mg/dl Calcium 8.4 L (8.5-10.1) mg/dl Total Bilirubin 12.9 H 12.7 H (0.2-1) mg/dl AST 1201 H 1286 H (15-37) U/L ALT 1244 H 1248 H (12-78) U/L Lactate Dehydrogenase (84-246) U/L Total Protein 8.5 H 8.3 H (6.4-8.2) gm/dl Albumin 2.6 L 2.5 L (3.4-5.0) gm/dl Globulin 5.9 H 5.8 H (2.5-4.0) gm/dl Albumin/Globulin Ratio 0.4 L 0.4 L (0.9-2) 05/13/19 05/13/19 05/13/19 Range/Units 05:04 05:04 05:04 WBC 1.89 L (4.8-10.8) K/uL RBC 3.88 L (4.2-5.4) M/uL Hgb 11.8 L (12.0-16.0) g/dL Hct 34.0 L (37-47) % RDW Std Deviation 59.7 H (36.4-46.3) fL RDW Coeff of Raf 18.4 H (11.5-14.5) % Neut # (Auto) 0.36 L* (1.4-6.5) K/uL Lymph # (Auto) 0.74 L (1.2-3.4) K/uL Dunn # (Auto) 0.65 H (0.11-0.59) K/uL PT 14.6 H (9.0-12.0) Seconds INR 1.5 H (0.9-1.1) APTT 34.2 H (21.0-31.0) Seconds Fibrinogen (184-400) mg/dl BUN 4 L (7-18) mg/dl BUN/Creatinine Ratio 5.3 L (10-20) Glucose 109 H (70-99) mg/dl Calcium 7.7 L (8.5-10.1) mg/dl Total Bilirubin 12.6 H (0.2-1) mg/dl AST 1267 H (15-37) U/L ALT 1226 H (12-78) U/L Lactate Dehydrogenase (84-246) U/L Total Protein (6.4-8.2) gm/dl Albumin 2.4 L (3.4-5.0) gm/dl Globulin 5.5 H (2.5-4.0) gm/dl Albumin/Globulin Ratio 0.4 L (0.9-2) 05/13/19 05/13/19 Range/Units 05:04 05:04 WBC (4.8-10.8) K/uL RBC (4.2-5.4) M/uL Hgb (12.0-16.0) g/dL Hct (37-47) % RDW Std Deviation (36.4-46.3) fL RDW Coeff of Raf (11.5-14.5) % Neut # (Auto) (1.4-6.5) K/uL Lymph # (Auto) (1.2-3.4) K/uL Dunn # (Auto) (0.11-0.59) K/uL PT (9.0-12.0) Seconds INR (0.9-1.1) APTT (21.0-31.0) Seconds Fibrinogen 158 L (184-400) mg/dl BUN (7-18) mg/dl BUN/Creatinine Ratio (10-20) Glucose (70-99) mg/dl Calcium (8.5-10.1) mg/dl Total Bilirubin (0.2-1) mg/dl AST (15-37) U/L ALT (12-78) U/L Lactate Dehydrogenase 322 H (84-246) U/L Total Protein (6.4-8.2) gm/dl Albumin (3.4-5.0) gm/dl Globulin (2.5-4.0) gm/dl Albumin/Globulin Ratio (0.9-2) PG Care Time/CCT Total # of Minutes Spent Total Time Spent with Patient: Total time spent is greater than 50% in coordination of care (as documented) at patient's floor/unit and/or counseling patient:
[2019-05-13 14:29] LABS: AFP Tumor Marker Serum 19.5 NG/ML (<6.1); Hepatitis A Antibody IgM NON-REACTIVE (NON-REACTIVE); Hepatitis B Core Antibody IgM NON-REACTIVE (NON-REACTIVE)
--- NOTE | 2019-05-13 16:54 | Hospitalist Progress Note ---
Date of Service May 13, 2019 Assessment & Plan (1) Transaminitis: Viral vs Continue IV fluid hydration with normal saline at 100 cc/h Viral hepatic panel pending GI consulted - will obtain patient's previous liver biopsy to review Pain management with morphine sulfate IV Zofran and Phenergan for nausea and vomiting avoid hepatotoxic agents MRCP as below Transaminases slightly down today, INR remains 1.5 - repeat am (2) Elevated bilirubin: Does not appear to be cholecystitis or any biliary ductal blockage. Bili peaked at 12.9. MRCP 05/12 IMPRESSION: 1. There is no intra-aortic extrahepatic biliary ductal dilatation. There are no gallstones or evidence of choledocholithiasis. 2. There is significant hepatic periportal edema. 3. The gallbladder is decompressed. The gallbladder wall is thickened and edematous and there is trace pericholecystic fluid. This is likely related to adjacent hepatic inflammation. Cholecystitis is considered less likely and clinical correlation will be required. Surgery consulted and has signed off Will dc abx (3) Neutropenia: Unclear origin possibly due to infection. Monitor WBCs daily Blood cultures ngtd (4) Ulcerative colitis: Stable now, continue home medicine hydroxychloroquine and mesalamine (5) Pancreatitis: MRCP showed the pancreas appears mildly enlarged and fluid is again suggested adjacent to the pancreatic head. Lipase peaked at 616 and trended down DC ceftriaxone and metronidazole - BC negative Clear liquid diet (6) DVT prophylaxis: SCDs, hold chemoprophylaxis for elevated INR Subjective Ms. Malin has a headache that started last evening before she went to bed and became more intense overnight. When I saw her today it was better but persistent. Mild neck stiffness, no photophobia or nausea. She is alert and oriented. No other complaints. Review of Systems Review of Systems: All systems reviewed & are unremarkable except as noted in HPI & below Physical Exam Physical Exam: General: no distress Eyes: normal inspection, PERLL Respiratory: chest non tender, clear to auscultation, normal breath sounds, no respiratory distress, no accessory muscle use Cardiac: regular rate and rhythm, no rub or gallop, no murmur, no edema, no jvd GI/: active bowel sounds, no abd pain or tenderness, soft, non distended Extremities: normal range of motion, normal strength, non tender Neuro/Psych: alert and oriented x 3, normal mood and affect, CN II - XII intact Skin: normal color, dry, rash bilateral shoulders Results & Data Vital Signs (Past 12 Hours) Vital Signs Temp Pulse Resp BP Pulse Ox 05/13/19 15:41 37.0 C 71 18 95/58 L 98 05/13/19 07:40 36.8 C 66 18 96/60 L 97 PG Care Time/CCT Total # of Minutes Spent Total Time Spent with Patient: Total time spent is greater than 50% in coordination of care (as documented) at patient's floor/unit and/or counseling patient: (1) Pancreatitis Acute pancreatitis complication: unspecified Chronicity: acute Pancreatitis type: unspecified pancreatitis type Qualified Code(s): K85.90 - Acute pancreatitis without necrosis or infection, unspecified
[2019-05-13] MEDS: SODIUM CHLORIDE 0.9% 1000ML 1,000 ML IV SCH (18:54)
[2019-05-13] MEDS: ALUMINUM/MAGNESIUM SUSP 30 ML UDC PO PRN (22:26)
[2019-05-14] MEDS: SODIUM CHLORIDE 0.9% 1000ML 1,000 ML IV SCH ×2 (04:32→14:38)
[2019-05-14 06:16] LABS: Hematocrit (blood only) 35.1 % (37-47); Mean Corpuscular Hemoglobin 29.9 pg (25-34); Mean Corpuscular Hgb Conc 34.2 g/dL (32-36); Mean Corpuscular Volume 87.3 fL (80-100); Mean Platelet Volume 10.2 fL (7.4-10.4); Platelet Count 189 K/uL (130-400); RDW Coefficient of Variation 18.5 % (11.5-14.5); RDW Standard Deviation 60.2 fL (36.4-46.3); Red Blood Count 4.02 M/uL (4.2-5.4); White Blood Count 2.48 K/uL (4.8-10.8)
[2019-05-14 06:50] LABS: Basophils # (auto) 0.05 K/uL (0-0.2); Eosinophils # (auto) 0.11 K/uL (0-0.5); Eosinophils % (auto) 4.4 %; Immature Granulocytes # (auto) 0.01 K/uL (0.00-0.02); Immature Granulocytes % (auto) 0.4 %; Lymphocytes # (auto) 1.14 K/uL (1.2-3.4); Monocytes # (auto) 0.69 K/uL (0.11-0.59); Monocytes % (auto) 27.8 %; Neutrophils # (auto) 0.48 K/uL (1.4-6.5); Neutrophils % (auto) 19.4 %
[2019-05-14 07:11] LABS: Albumin Globulin Ratio 0.4 (0.9-2); Albumin Level 2.2 gm/dl (3.4-5.0); BUN Creatinine Ratio 3.4 (10-20); Bilirubin,Total 14.4 mg/dl (0.2-1); Calcium 7.7 mg/dl (8.5-10.1); Creatinine Clr Calc Pharmacy 101.3 ml/min; Est GFR (African American) 134.8; Est GFR (Non-African American) 116.3; Globulin 5.4 gm/dl (2.5-4.0); Potassium 3.4 mmol/L (3.5-5.1); Total Protein 7.6 gm/dl (6.4-8.2)
[2019-05-14 07:17] VITALS: TEMP 98.1; O2SAT 96
[2019-05-14] MEDS ORDERED: POTASSIUM CHLORIDE 20 MEQ TABCR PO STA (08:23)
[2019-05-14 08:49] LABS: INR 1.6 (0.9-1.1); Prothrombin Time 15.6 Seconds (9.0-12.0)
[2019-05-14] MEDS: HYDROXYCHLOROQUINE SULFATE 200 MG TAB PO SCH (09:04)
--- NOTE | 2019-05-14 14:06 | Discharge Summary ---
Date of Service May 14, 2019 Admission HPI Per Admitting Provider Patient is a 28 years old female with past medical history of ulcerative colitis, lupus and Raynaud's phenomenon who presents to the emergency room with complaints of persistent abdominal pain starting 2 days ago. Patient had colonoscopy done 3 days ago. She states that day after colonoscopy she started to have abdominal pain and distention. She reports that the pain is mainly in the upper abdomen and it is cramping. She reports that it is worse with coughing and breathing. Patient states that she called Dr. Ron See, GI specialist today and supposed to go to his office to have abdominal x-rays done, but instead he decided to send her to the emergency room. Patient had bowel movement since colonoscopy and it was normal in consistency. Patient said that she lost appetite and she feels easily satiety. Patient denies fever, chills, headache, chest pain, frequency, urgency, hematemesis, melena, hemoptysis, hematuria or dysuria. Labs are reviewed: And it shows neutropenia of 2.98, hemoglobin 13.8, hematocrit of 38.9, platelets of 188, sodium 135, potassium 3.7, BUN 4, creatinine 0.77, GFR 103.6,, AST 974, ALT 1275, alkaline phosphatase 08/12/2005, lipase 680, beta-hCG negative. Urine all negative except 2+ bilirubin. Alysa screen from before negative, anti-smooth muscles antibodies from before 1: 20, liver/kidney microsomal antibody less than 20. CT abdomen pelvis: The goal breath of water is is thickened and adenomatosis with associated mucosal hyperemia and troy-cholecyst to take inflammation. Although this could potentially be related to hepatic inflammation and periportal edema the appearance is highly concerning for acute cholecystitis. Correlation with clinical findings liver function studies and right upper quadrant ultrasound is recommended. Mild infiltration is suggested around the descending colon there is nonspecific and could represent mild colitis or could be related to the reported history of recent colonoscopy. A decision was made to admit patient to medicine for treatment of acute cholecystitis, transaminitis and abdominal pain. Principal Diagnosis Hepatitis Discharge Exam Constitutional WD/WN, vitals as above Eyes icteric sclera Respiratory normal respiratory effort, lungs clear to auscultation Cardiovascular RRR, no murmur, no edema Gastrointestinal (Abdomen) Inspection/Auscultation: abdomen normal to inspection and normal bowel sounds; abdomen not distended Percussion/Palpation: + abdomen tender and abdomen soft Skin + jaundice Neurologic moves all extremities and awake Psychiatric A+Ox3, euthymic affect Discharge Data Allergies Allergy/AdvReac Type Severity Reaction Status Date / Time avocado Allergy Hives Unverified 05/11/19 18:28 [email or web address] Allergy Hives Unverified 05/11/19 18:27 No Known Drug Allergies Allergy Unknown Verified 05/11/19 22:08 Consultations 05/11/19 17:51 Consult General Surgery Stat ED Decision to Admit Stat 05/11/19 22:03 Consult Gastroenterology Routine Ordered Studies 05/11/19 15:33 CT abd pelvis IV con only Stat 05/11/19 22:22 US liver Urgent 05/12/19 08:51 MR MRCP Routine Hospital Course (1) Hepatitis: Ms. Malin was holding in the 1200s for transaminases over the last few days, with Bili around 12.5 and INR 1.5 but today her bili increased to 14.4 and INR 1.6. Discussed her case with hepatology and hospitalists at [place] and [facility] will accept patient for transfer. Viral vs medication vs autoimmune Continue IV fluid hydration with normal saline at 100 cc/h Viral hepatic panel pending - hepatitis A,B,C screens negative, EBV, CMV pending GI consulted Pain management with morphine sulfate IV Zofran and Phenergan for nausea and vomiting avoid hepatotoxic agents MRCP as below (2) Transaminitis: (3) Elevated bilirubin: Does not appear to be cholecystitis or any biliary ductal blockage. Bili trending up MRCP 05/12 IMPRESSION: 1. There is no intra-aortic extrahepatic biliary ductal dilatation. There are no gallstones or evidence of choledocholithiasis. 2. There is significant hepatic periportal edema. 3. The gallbladder is decompressed. The gallbladder wall is thickened and edematous and there is trace pericholecystic fluid. This is likely related to adjacent hepatic inflammation. Cholecystitis is considered less likely and clinical correlation will be required. Surgery consulted and has signed off Will dc abx (4) Neutropenia: Unclear origin possibly due to infection. Monitor WBCs daily Blood cultures ngtd (5) Ulcerative colitis: Stable now, continue home medicine mesalamine Recent colonoscopy 05/08 showed internal hemorrhoids and obtained biopsies (6) Lupus (systemic lupus erythematosus): continue hydroxychloroquine (7) Pancreatitis: MRCP showed the pancreas appears mildly enlarged and fluid is suggested adjacent to the pancreatic head. Lipase peaked at 616 and trended down DC'd ceftriaxone and metronidazole - BC negative Continue Clear liquid diet (8) DVT prophylaxis: SCDs, hold chemoprophylaxis for elevated INR Total Time Total Time Spent Total Time Spent (In Minutes): greater than 30 minutes Discharge Plan Discharge Items Patient Disposition: Transfer Acute Care Hospital Reason For Visit: ABDOMINAL PAIN,NAUSEA AND VOMITING Discharge Diagnosis: Hepatitis Activity: As commented below Activity Comment: per discharge from [facility] Non-emergency contact: Primary Care Provider Call non-emergency contact if: you have any medication questions Follow-up/Referrals: PCP,NO [Primary Care Provider] - Diet: Regular Addtl Attending Provider Instructions: Maintain neutropenic precautions . Pending Studies at Discharge: Yes Studies:: CMV, EMV Stand-Alone Forms: [facility] [place] [facility] Skilled Items Patient informed of condition?: Yes DNR: No Discharge Level of Care: Other Communicable Disease: No Discharge Prognosis: Deteriorating Lines: Saline Lock Urinary Catheter: No Medications and DC Order Prescriptions: Continued hydroxychloroquine 200 mg Tablet 200 mg PO QAM RF: 0 mesalamine 1.2 gram Tablet,Delayed Release (Dr/Ec) 2.4 g PO QAM RF: 0 Discharge Orders: Discharge Order (Routine); Ordered 05/14/19 Ordered By: Mery Stephens Admission Data Admit Date/Time: 05/11/19 20:27 Attending Provider: Carroll Freeman Admit Provider: Eliel Carbone Primary Care Provider: PCP,NO Other Providers: Cyrus Horvath ; Esa Velasquez ; Carroll Freeman
[2019-05-14 15:30] VITALS: BP 108/71
[2019-05-14 17:30] VITALS: PULSE 70
[2019-05-15 14:24] LABS: CMV IgG Antibody <0.60 U/ML; CMV IgM Antibody <30.00 Au/mL
== END 2019-05-14 20:04 | disposition short-term general hospital (02) | DRG 441 ==
LOC: ED 14:12 → SUATTDRO 20:27 → 3W 20:27

== ENCOUNTER 2021-09-18 08:47 | Inpatient (IN) ==
[2021-09-18] MEDS ORDERED: OXYTOCIN 30 UNITS/500 ML BAG IV PRN ×2 (20:00→20:03)
[2021-09-18] MEDS ORDERED: LACTATED RINGER'S 1,000 ML IV PRN (20:00)
[2021-09-18] MEDS ORDERED: DINOPROSTONE 10 MG INSERT PV ONE ×2 (20:00→20:03)
[2021-09-18 20:19] LABS: Hematocrit (blood only) 38.2 % (37-47); Hemoglobin 13.4 g/dL (12.0-16.0); Mean Corpuscular Hgb Conc 35.1 g/dL (32-36); Mean Corpuscular Volume 85.5 fL (80-100); Mean Platelet Volume 9.8 fL (7.4-10.4); Platelet Count 197 K/uL (130-400); RDW Standard Deviation 47.2 fL (36.4-46.3); Red Blood Count 4.47 M/uL (4.2-5.4); White Blood Count 7.61 K/uL (4.8-10.8)
--- NOTE | 2021-09-18 20:58 | Obstetrical Progress Note ---
Date of Service September 18, 2021 Assessment & Plan (1) Diabetes in : Plan: Pt here for Indcution;Pregnacy at 39 + weeks complicated by 1GDM A2 2, SLE 3. UC FHR CAT1 Ctx : irregular VE: ft/50%/Post Cervidil inserted in vagina (2) Lupus (systemic lupus erythematosus): (3) Ulcerative colitis: Admission and Anticipated Discharge Date Admission Date: September 18, 2021 Results & Data ([facility]) Vital Signs (Past 12 Hours) Vital Signs Temp Pulse BP 09/18/21 19:30 37.1 C 09/18/21 19:29 83 120/85
[2021-09-18] MEDS ORDERED: CALCIUM CARBONATE 500 MG CHEWABLE TAB PO PRN (21:39)
[2021-09-18] MEDS: MESALAMINE 800 MG TABCR PO SCH (22:56)
[2021-09-18] MEDS: HYDROXYCHLOROQUINE SULFATE 200 MG TAB PO SCH (22:56)
--- NOTE | 2021-09-19 08:48 | Labor Progress Brief Note ---
Date of Service September 19, 2021 Assessment & Plan Admission and Anticipated Discharge Date Admission Date: September 18, 2021 Physical Exam Genitourinary: Manual OB Exam: + cervical dilation 1 cm, + cervical effacement 50% and + station high OB Exam Monitor Tracing: + external FHT monitor used, + external uterine monitor used, + category I and + normal FHT variability Cervidil removed Results & Data ([facility]) Vital Signs (Past 12 Hours) Vital Signs Temp Pulse Resp BP 09/19/21 07:41 36.6 C 70 18 110/66 09/19/21 04:33 36.9 C 66 18 115/71 09/18/21 21:09 37.1 C 18
[2021-09-19] MEDS: LACTATED RINGER'S 1,000 ML IV PRN (11:41)
[2021-09-19] MEDS: CALCIUM CARBONATE 500 MG CHEWABLE TAB PO PRN (13:06)
--- NOTE | 2021-09-19 17:37 | Labor Progress Brief Note ---
Date of Service September 19, 2021 Assessment & Plan Admission and Anticipated Discharge Date Admission Date: September 18, 2021 Physical Exam Genitourinary: OB Exam Abdomen: + fundal height and + vertex Manual OB Exam: + cervical dilation 1 cm, + cervical effacement 50% and + station high cervix more anterior now but still firm. Will place another cervidil tonight to further ripen cervix Results & Data ([facility]) Vital Signs (Past 12 Hours) Vital Signs Temp Pulse Resp BP 09/19/21 16:25 36.6 C 20 09/19/21 16:20 73 110/71 09/19/21 07:41 36.6 C 70 18 110/66
[2021-09-19] MEDS ORDERED: DINOPROSTONE 10 MG INSERT PV ONE (18:57)
--- NOTE | 2021-09-19 19:57 | Labor Progress Brief Note ---
Date of Service September 19, 2021 Assessment & Plan Admission and Anticipated Discharge Date Admission Date: September 18, 2021 Physical Exam Genitourinary: Manual OB Exam: + cervical dilation fingertip and 1 cm, + cervical effacement 50% and + station (Cervidil 10 mg placed vaginally) high Results & Data ([place]) Vital Signs (Past 12 Hours) Vital Signs Temp Pulse Resp BP 09/19/21 19:35 80 112/71 09/19/21 16:25 36.6 C 20 09/19/21 16:20 73 110/71
[2021-09-19] MEDS ORDERED: BUTORPHANOL TARTRATE 1 MG/ML VIAL IV PRN (20:46)
[2021-09-20] MEDS: CALCIUM CARBONATE 500 MG CHEWABLE TAB PO PRN (01:03)
[2021-09-20 08:07] LABS: Basophils # (auto) 0.02 K/uL (0-0.2); Basophils % (auto) 0.2 %; Eosinophils # (auto) 0.09 K/uL (0-0.5); Eosinophils % (auto) 0.9 %; Hematocrit (blood only) 41.2 % (37-47); Immature Granulocytes # (auto) 0.04 K/uL (0.00-0.02); Immature Granulocytes % (auto) 0.4 %; Lymphocytes # (auto) 1.54 K/uL (1.2-3.4); Lymphocytes % (auto) 14.8 %; Mean Corpuscular Hemoglobin 29.2 pg (25-34); Mean Platelet Volume 10.2 fL (7.4-10.4); Monocytes # (auto) 0.85 K/uL (0.11-0.59); Monocytes % (auto) 8.2 %; Neutrophils # (auto) 7.86 K/uL (1.4-6.5); Neutrophils % (auto) 75.5 %; Platelet Count 203 K/uL (130-400); RDW Standard Deviation 48.9 fL (36.4-46.3); Red Blood Count 4.79 M/uL (4.2-5.4)
--- NOTE | 2021-09-20 08:12 | Obstetrical Progress Note ---
Date of Service September 20, 2021 Assessment & Plan Admission and Anticipated Discharge Date Admission Date: September 18, 2021 Subjective Patient seen and examined. She is a 31-year-old -0-1-0 at 39 weeks and 4 days of gestation who was admitted on September [address] Chencho Cuevas for induction of labor at term due to gestational diabetes, on insulin. She has a history of SLE, Crohn's, Raynaud's disease, autoimmune hepatitis. She has been on low-dose of aspirin, last dose was taken on September 18. She has received Cervidil for cervical ripening. She has been feeling contractions every 2 to 3 minutes and they are getting more painful for her. She denies pain medications nor epidural for now. Her fingersticks glucose levels have been within normal limits, GBS negative, heart rate is category 1, contractions every 2 to 3 minutes. Vaginal exam, cervix is 3 to 4 cm dilated, 70 to 80% effaced, head at -2 station with a bulging amniotic bag. I offered AROM but patient declined and she desires to take shower and then get epidural and then AROM. We will continue to monitor closely. All questions were answered. Results & Data ([facility]) Vital Signs (Past 12 Hours) Vital Signs Pulse BP 09/20/21 01:11 74 112/63
[2021-09-20 08:17] LABS: INR 0.9 (0.9-1.1); Partial Thromboplastin Ratio 1.2; Partial Thromboplastin Time 30.4 Seconds (21.0-31.0); Prothrombin Time 9.5 Seconds (9.0-12.0)
[2021-09-20 08:28] LABS: Albumin Globulin Ratio 1.1 (0.9-2); Albumin Level 3.4 gm/dl (3.4-5.0); Bilirubin,Total 0.5 mg/dl (0.2-1.0); Calcium 8.8 mg/dl (8.5-10.1); Creatinine Clr Calc Pharmacy 149.7 ml/min; Est GFR (African American) 147.4 ml/min; Est GFR (Non-African American) 127.2 ml/min; Globulin 3.1 gm/dl (2.5-4.0); Potassium 3.8 mmol/L (3.5-5.1); Total Protein 6.5 gm/dl (6.0-8.3)
[2021-09-20] MEDS ORDERED: BUPIVACAINE 0.25% 30 ML VIAL ONE (08:50)
[2021-09-20] MEDS ORDERED: SODIUM CHLORIDE 0.9% INJ 10 ML VIAL ONE (08:50)
[2021-09-20] MEDS ORDERED: fentaNYL citrate 100 MCG/2 ML VIAL ONE (08:50)
[2021-09-20] MEDS ORDERED: ePHEDrine sulfate 50 MG/ML AMP ONE (08:50)
[2021-09-20] MEDS ORDERED: fentaNYL 2MCG/ML ROPIVACAINE 1.25MG/ML 100 ML BAG EPI ONE (08:51)
[2021-09-20] MEDS ORDERED: OXYTOCIN 30 UNITS/500 ML BAG IV PRN (09:29)
[2021-09-20] MEDS ORDERED: NALOXONE HCL 0.4 MG/1 ML VIAL/CARP IV PRN (09:39)
[2021-09-20] MEDS ORDERED: fentaNYL 2MCG/ML ROPIVACAINE 1.25MG/ML 100 ML BAG EPI PRN (09:39)
[2021-09-20] MEDS ORDERED: ONDANSETRON INJ 2 MG/ML 2 ML VIAL IV PRN (09:39)
[2021-09-20] MEDS ORDERED: diphenhydrAMINE 50 MG/ML VIAL IV PRN (09:39)
[2021-09-20] MEDS ORDERED: ePHEDrine sulfate 50 MG/ML AMP IV PRN (09:39)
[2021-09-20] MEDS ORDERED: NALOXONE HCL 1 MG in SODIUM CHLORIDE 0.9% 1000ML 1,000 ML IV PRN (09:39)
[2021-09-20] MEDS ORDERED: NALBUPHINE HCL INJ 10 MG/ML AMP IV PRN (09:39)
--- NOTE | 2021-09-20 09:47 | Anesthesiology Consultation ---
Date of Service September 20, 2021 Assessment & Plan Chart Review Chart Review: Patient NOT seen in Pre Admission Testing and Acceptable Risk for Labor Epidural Consults Requested none ASA ASA3 Proposed Anesthesia Anesthesia Type: Labor Epidural and CSE Risk / Benefits Reviewed With: PT / POA / Parent / Guardian, Accepts Plan and Informed Consent Obtained History Height/Weight Height: 5 ft 2 in Weight: 73.028 kg Allergies Allergy/AdvReac Type Severity Reaction Status Date / Time avocado Allergy Hives Verified 09/18/21 21:33 [email or web address] Allergy Hives Verified 09/18/21 21:33 No Known Drug Allergies Allergy Unknown Verified 09/18/21 21:33 Medications Home Medications Medication Instructions Recorded Confirmed Last Taken hydroxychloroquine 200 mg tablet 200 mg PO HS 03/09/19 09/18/21 09/17/21 23:00 mesalamine 1.2 gram tablet,delayed 1.2 g PO HS 09/18/21 09/18/21 09/17/21 23:00 release Active Medications Generic Name Dose Route Start Last Admin Trade Name Freq PRN Reason Stop Dose Admin Calcium Carbonate 500 mg 09/19/21 12:44 09/20/21 01:03 Calcium Carbonate 500 Mg Chewable Tab PO 10/19/21 12:43 500 mg Q2HWA PRN Administration Indigestion Hydroxychloroquine Sulfate 200 mg 09/18/21 21:45 09/18/21 22:56 Hydroxychloroquine Sulfate 200 Mg Tab PO 10/18/21 21:44 200 mg HS INES Administration Lactated Ringer's 1,000 mls @ 125 mls/hr 09/18/21 20:03 09/19/21 14:00 Lr IV 09/20/21 20:02 Infused .Q8H PRN Infusion L&D Protocol Protocol Mesalamine 2,400 mg 09/18/21 21:38 09/18/21 22:56 Mesalamine 800 Mg Tabcr PO 10/18/21 21:37 2,400 mg HS INES Administration NPO Date Last Intake of Fluids: 09/20/21 Time Last Intake of Fluids: 09:00 Date Last Intake of Solids: 09/19/21 Time Last Intake of Solids: 19:00 Past Medical History Medical History History of anesthesia reaction "shakes when coming out of it" History of colon polyps Migraine Ortiz syndrome Systemic lupus erythematosus Ulcerative colitis Exercise / Class Metabolic Activity II 4-5 Yardwork/Stairs/Walk up hill Past Family History Family History Mother Family history of reaction to anesthesia nausea/vomiting Uncle Family hx of colon cancer Other Family history of cancer in mother Past Surgical History Surgical History History of appendectomy History of colonoscopy History of esophagogastroduodenoscopy (EGD) History of gastric surgery removal of diverticulum History of liver biopsy 2005--normal History of tooth extraction History of wisdom tooth extraction PEG (percutaneous endoscopic gastrostomy) adjustment/replacement/removal had during gastric surgery, no longer has Past Anesthesia History No Hx of Anesthesia Complications and No Family Hx of Anesthesia Complications History of PONV No Hx of PONV and No Hx of Motion Sickness Social History Smoking Status: Never smoker Do You Dip or Chew Tobacco: No Hx Alcohol Use: Yes Alcohol type: beer alcohol intake frequency: a few times a week Hx Substance Use: No substance use type: does not use Review of Systems no chest pain or sob Physical Exam Vital Signs Last Vital Signs Temp 36.9 C 09/20/21 08:31 Pulse 75 09/20/21 09:43 Resp 22 09/20/21 08:31 BP 117/73 09/20/21 08:31 Pulse Ox 99 09/20/21 09:43 ENMT Mouth: no TMJ abnormality Thyromental Distance: > or= 3.5 Finger Breadths Mallampati Class: II Neck normal visual inspection Respiratory normal respiratory effort Auscultation: lungs clear to auscultation bilaterally Cardiovascular Rate/Rhythm: regular rate and regular rhythm Musculoskeletal Spine: normal cervical ROM Neurologic moves all extremities Psychiatric Orientation: alert and oriented x 3 Testing Laboratory Results 09/20/21 07:54 09/20/21 07:54 PT 9.5 Seconds (9.0-12.0) 09/20/21 07:54 INR 0.9 (0.9-1.1) 09/20/21 07:54 APTT 30.4 Seconds (21.0-31.0) 09/20/21 07:54 09/20/21 09/20/21 09/20/21 07:56 05:11 02:08 POC Glucose 72 78 75
[2021-09-20] MEDS: LACTATED RINGER'S 1,000 ML IV PRN ×2 (10:57→15:07)
--- NOTE | 2021-09-20 11:55 | Obstetrical Progress Note ---
Date of Service September 20, 2021 Assessment & Plan Admission and Anticipated Discharge Date Admission Date: September 18, 2021 Subjective Patient is reevaluated. Received epidural and comfortable now. Vital signs stable afebrile, Labs including platelets, coags, liver enzymes are within normal limits. heart rate had been category 1, Vaginal exam 4 cm dilated, 70% effaced, -2 station, bulging bag, AROM, clear fluids. heart rate had deceleration to 80s to 90s for about 2 minutes, vaginal exam is repeated and was the same, scalp electrode was placed and heart rate increased to 120s to 150s. We will continue to monitor closely, Harmon catheter to drain bladder. Results & Data ([facility]) Vital Signs (Past 12 Hours) Vital Signs Temp Pulse Resp BP Pulse Ox 09/20/21 11:48 73 100 09/20/21 11:47 96 H 91 09/20/21 11:43 74 101/64 100 09/20/21 11:38 79 100 09/20/21 11:33 83 92 09/20/21 11:29 78 106/67 09/20/21 11:28 72 100 09/20/21 11:23 103 H 100 09/20/21 11:18 79 100 09/20/21 11:14 77 100/57 L 09/20/21 11:13 75 100 09/20/21 11:08 75 100 09/20/21 11:03 72 99 09/20/21 10:58 81 100 09/20/21 10:53 80 100 09/20/21 10:52 76 97/60 L 09/20/21 10:48 75 99 09/20/21 10:43 73 98 09/20/21 10:42 71 111/66 09/20/21 10:38 84 99 09/20/21 10:36 84 88 L 09/20/21 10:34 73 106/66 09/20/21 10:33 75 100 09/20/21 10:32 84 105/63 09/20/21 10:28 76 100 09/20/21 10:23 80 100 09/20/21 10:21 76 103/62 09/20/21 10:18 79 100 09/20/21 10:17 103 H 91 09/20/21 10:14 87 97/55 L 09/20/21 10:13 85 100 09/20/21 10:12 84 100/55 L 09/20/21 10:11 85 103/55 L 09/20/21 10:09 88 91/54 L 09/20/21 10:08 88 100 09/20/21 10:06 82 101/63 09/20/21 10:05 84 96/54 L 09/20/21 10:04 83 87/51 L 09/20/21 10:03 84 100 09/20/21 10:02 85 90/51 L 09/20/21 10:01 82 90/50 L 09/20/21 09:59 82 105/61 09/20/21 09:58 91 H 99 09/20/21 09:57 82 102/60 09/20/21 09:53 96 H 100 09/20/21 09:48 99 H 100 09/20/21 09:43 75 99 09/20/21 09:38 77 100 09/20/21 08:31 36.9 C 67 22 117/73 09/20/21 01:11 74 112/63
--- NOTE | 2021-09-20 13:59 | Obstetrical Progress Note ---
Date of Service September 20, 2021 Assessment & Plan Admission and Anticipated Discharge Date Admission Date: September 18, 2021 Subjective Patient is reevaluated.She is comfortable, does not feel anything. Nursing team was unable start pitocin due to concern with FHR. FHR had been categ I between contractions, with good variability and accels, but with each ctxs FHr has either early or short late deceleration with quick recovery. Contractions have been spaced out, every 10 min. VE; unchanged, 4/ 60% ( thicker), -2 Discussed the findings and recommended Oxytocin challenge test. If fetus passes the test then will continue with IOL with Oxytocin but if fails then recommend delivery. All questions were answered. Continue to monitor closely and plan to monitor ctxs with IU Results & Data ([facility]) Vital Signs (Past 12 Hours) Vital Signs Temp Pulse Resp BP Pulse Ox 09/20/21 13:53 96 H 100 09/20/21 13:50 98 H 117/69 09/20/21 13:48 83 100 09/20/21 13:45 81 110/66 09/20/21 13:43 81 100 09/20/21 13:41 79 115/68 09/20/21 13:38 82 100 09/20/21 13:35 81 110/64 09/20/21 13:33 81 100 09/20/21 13:31 76 107/61 09/20/21 13:28 82 100 09/20/21 13:27 112 H 86 L 09/20/21 13:26 94 H 92/50 L 09/20/21 13:23 84 100 09/20/21 13:20 99 H 86/52 L 09/20/21 13:18 106 H 100 09/20/21 13:17 93 H 93/51 L 09/20/21 13:13 89 100 09/20/21 13:10 84 94/54 L 09/20/21 13:08 74 100 09/20/21 13:05 77 90/50 L 09/20/21 13:03 88 90/53 L 100 09/20/21 13:02 83 97/55 L 09/20/21 12:59 83 83/53 L 09/20/21 12:58 84 100 09/20/21 12:53 82 100 09/20/21 12:48 84 99 09/20/21 12:43 77 109/62 100 02/09/22 12:38 89 100 09/20/21 12:33 75 100 09/20/21 12:28 75 110/62 100 09/20/21 12:23 79 100 09/20/21 12:18 78 100 09/20/21 12:14 77 109/60 09/20/21 12:13 79 98 09/20/21 12:08 88 100 09/20/21 12:03 81 100 09/20/21 12:00 74 104/66 09/20/21 11:58 87 100 09/20/21 11:53 76 100 09/20/21 11:48 73 100 09/20/21 11:47 96 H 91 09/20/21 11:43 74 101/64 100 09/20/21 11:38 79 100 09/20/21 11:33 83 92 09/20/21 11:29 78 106/67 09/20/21 11:28 72 100 09/20/21 11:23 103 H 100 09/20/21 11:18 79 100 09/20/21 11:14 77 100/57 L 09/20/21 11:13 75 100 09/20/21 11:08 75 100 09/20/21 11:03 72 99 09/20/21 10:58 81 100 09/20/21 10:53 80 100 09/20/21 10:52 76 15 97/60 L 09/20/21 10:48 75 99 09/20/21 10:43 73 98 09/20/21 10:42 71 111/66 09/20/21 10:38 84 99 09/20/21 10:36 84 88 L 09/20/21 10:34 73 106/66 09/20/21 10:33 75 100 09/20/21 10:32 84 105/63 09/20/21 10:28 76 100 09/20/21 10:23 80 100 09/20/21 10:21 76 103/62 09/20/21 10:18 79 100 09/20/21 10:17 103 H 91 09/20/21 10:14 87 97/55 L 09/20/21 10:13 85 100 09/20/21 10:12 84 100/55 L 09/20/21 10:11 85 103/55 L 09/20/21 10:09 88 91/54 L 09/20/21 10:08 88 100 09/20/21 10:06 82 101/63 09/20/21 10:05 84 96/54 L 09/20/21 10:04 83 87/51 L 09/20/21 10:03 84 100 09/20/21 10:02 85 90/51 L 09/20/21 10:01 82 90/50 L 09/20/21 09:59 82 105/61 09/20/21 09:58 91 H 99 09/20/21 09:57 82 102/60 09/20/21 09:53 96 H 100 09/20/21 09:48 99 H 100 09/20/21 09:43 75 99 09/20/21 09:38 77 100 09/20/21 08:31 36.9 C 67 22 117/73
--- NOTE | 2021-09-20 17:03 | Obstetrical Progress Note ---
Date of Service September 20, 2021 Assessment & Plan Admission and Anticipated Discharge Date Admission Date: September 18, 2021 Subjective Patient is reevaluated. She is comfortable. heart rate had been category 1. Past the oxytocin challenge test. Oxytocin is at 10 mIU/min and contractions are every 3 to 4 minutes, making up to 151 Tol[place]on units per 10 minutes. Cervix is 5 cm dilated, 70% effaced, head is -2 to -1 station. Plan to increase Pitocin until 200 MVU is reached. Continue to monitor closely. Results & Data ([facility]) Vital Signs (Past 12 Hours) Vital Signs Temp Pulse Resp BP Pulse Ox 09/20/21 16:58 89 98 09/20/21 16:57 87 102/57 L 09/20/21 16:55 36.9 C 16 09/20/21 16:53 109 H 98 09/20/21 16:50 83 114/66 09/20/21 16:48 87 97 09/20/21 16:46 83 121/65 09/20/21 16:43 87 97 09/20/21 16:41 85 113/65 09/20/21 16:38 99 H 98 09/20/21 16:36 86 110/68 09/20/21 16:33 94 H 96 09/20/21 16:30 88 110/61 09/20/21 16:28 96 H 97 09/20/21 16:25 94 H 115/63 09/20/21 16:23 87 96 09/20/21 16:21 89 115/63 09/20/21 16:18 97 H 97 09/20/21 16:15 88 114/67 09/20/21 16:13 87 97 09/20/21 16:12 101 H 93 09/20/21 16:11 83 113/64 09/20/21 16:08 91 H 96 09/20/21 16:05 36.9 C 93 H 16 110/62 09/20/21 16:03 90 97 09/20/21 16:01 83 109/61 09/20/21 15:58 94 H 98 09/20/21 15:56 80 117/68 09/20/21 15:53 90 97 09/20/21 15:50 85 112/65 09/20/21 15:48 88 97 09/20/21 15:46 83 112/67 02/09/22 15:43 92 H 100 09/20/21 15:42 75 112/65 09/20/21 15:38 81 98 09/20/21 15:36 91 H 110/58 L 94 09/20/21 15:33 83 99 09/20/21 15:30 91 H 87/51 L 09/20/21 15:28 85 99 09/20/21 15:25 91 H 85/49 L 09/20/21 15:23 90 98 09/20/21 15:21 84 93/49 L 09/20/21 15:18 91 H 98 09/20/21 15:16 95 H 93 09/20/21 15:15 84 92/54 L 09/20/21 15:13 87 99 09/20/21 15:10 86 91/55 L 09/20/21 15:08 85 97 09/20/21 15:07 82 98/50 L 09/20/21 15:04 37.2 C 14 09/20/21 15:03 84 98 09/20/21 15:00 102 H 96/53 L 09/20/21 14:58 88 98 09/20/21 14:56 93 H 89/54 L 09/20/21 14:53 83 98 09/20/21 14:50 93 H 89/52 L 09/20/21 14:48 91 H 98 09/20/21 14:46 92 H 87/54 L 09/20/21 14:43 84 98 09/20/21 14:41 105 H 92 09/20/21 14:40 93 H 94/51 L 09/20/21 14:38 91 H 99 09/20/21 14:35 86 89/53 L 09/20/21 14:33 90 100 09/20/21 14:30 87 97/55 L 09/20/21 14:28 90 99 09/20/21 14:27 82 103/61 09/20/21 14:23 90 99 09/20/21 14:20 82 97/57 L 09/20/21 14:18 94 H 100 09/20/21 14:15 84 95/55 L 09/20/21 14:13 84 100 09/20/21 14:11 83 90/54 L 09/20/21 14:08 86 100 09/20/21 14:07 91 H 110/55 L 09/20/21 14:03 113 H 100 09/20/21 14:01 88 103/59 L 09/20/21 13:58 91 H 100 09/20/21 13:56 86 98/53 L 09/20/21 13:53 96 H 100 09/20/21 13:50 98 H 117/69 09/20/21 13:48 83 100 09/20/21 13:45 81 110/66 09/20/21 13:43 81 100 09/20/21 13:41 79 115/68 09/20/21 13:38 82 100 09/20/21 13:35 81 110/64 09/20/21 13:33 81 100 09/20/21 13:31 76 107/61 09/20/21 13:28 82 100 09/20/21 13:27 112 H 86 L 09/20/21 13:26 94 H 92/50 L 09/20/21 13:23 84 100 09/20/21 13:20 99 H 86/52 L 09/20/21 13:18 106 H 100 09/20/21 13:17 93 H 93/51 L 09/20/21 13:13 89 100 09/20/21 13:10 84 94/54 L 09/20/21 13:08 74 100 09/20/21 13:05 77 90/50 L 09/20/21 13:03 88 90/53 L 100 09/20/21 13:02 83 97/55 L 09/20/21 12:59 83 83/53 L 09/20/21 12:58 84 100 09/20/21 12:53 82 100 09/20/21 12:48 84 99 09/20/21 12:43 77 109/62 100 09/20/21 12:38 89 100 09/20/21 12:33 75 100 09/20/21 12:28 75 110/62 100 09/20/21 12:23 79 100 09/20/21 12:18 78 100 09/20/21 12:14 77 109/60 09/20/21 12:13 79 98 09/20/21 12:08 88 100 09/20/21 12:03 81 100 09/20/21 12:00 74 104/66 09/20/21 11:58 87 100 09/20/21 11:53 76 100 09/20/21 11:48 73 100 09/20/21 11:47 96 H 91 09/20/21 11:43 74 101/64 100 09/20/21 11:38 79 100 09/20/21 11:33 83 92 09/20/21 11:29 78 106/67 09/20/21 11:28 72 100 09/20/21 11:23 103 H 100 09/20/21 11:18 79 100 09/20/21 11:14 77 100/57 L 09/20/21 11:13 75 100 09/20/21 11:08 75 100 09/20/21 11:03 72 99 09/20/21 10:58 81 100 09/20/21 10:53 80 100 09/20/21 10:52 76 15 97/60 L 09/20/21 10:48 75 99 09/20/21 10:43 73 98 09/20/21 10:42 71 111/66 09/20/21 10:38 84 99 09/20/21 10:36 84 88 L 09/20/21 10:34 73 106/66 09/20/21 10:33 75 100 09/20/21 10:32 84 105/63 09/20/21 10:28 76 100 09/20/21 10:23 80 100 09/20/21 10:21 76 103/62 09/20/21 10:18 79 100 09/20/21 10:17 103 H 91 09/20/21 10:14 87 97/55 L 09/20/21 10:13 85 100 09/20/21 10:12 84 100/55 L 09/20/21 10:11 85 103/55 L 09/20/21 10:09 88 91/54 L 09/20/21 10:08 88 100 09/20/21 10:06 82 101/63 09/20/21 10:05 84 96/54 L 09/20/21 10:04 83 87/51 L 09/20/21 10:03 84 100 09/20/21 10:02 85 90/51 L 09/20/21 10:01 82 90/50 L 09/20/21 09:59 82 105/61 09/20/21 09:58 91 H 99 09/20/21 09:57 82 102/60 09/20/21 09:53 96 H 100 09/20/21 09:48 99 H 100 09/20/21 09:43 75 99 09/20/21 09:38 77 100 09/20/21 08:31 36.9 C 67 22 117/73
--- NOTE | 2021-09-20 19:22 | Obstetrical Progress Note ---
Date of Service September 20, 2021 Assessment & Plan Admission and Anticipated Discharge Date Admission Date: September 18, 2021 Subjective Patient is reevaluated VE: ant lip, 100%, +1 FHR category I IUPC is removed Continue to monitor closely Anticipate Results & Data ([facility]) Vital Signs (Past 12 Hours) Vital Signs Temp Pulse Resp BP Pulse Ox 09/20/21 19:18 94 H 116/67 100 09/20/21 19:16 96 H 92 09/20/21 19:13 77 99 09/20/21 19:08 77 100 09/20/21 19:03 80 98 09/20/21 19:02 73 125/77 09/20/21 18:58 77 100 09/20/21 18:53 73 100 09/20/21 18:48 73 100 09/20/21 18:46 71 129/78 09/20/21 18:43 73 100 09/20/21 18:38 79 99 09/20/21 18:33 78 100 09/20/21 18:28 83 100 09/20/21 18:23 77 99 09/20/21 18:18 77 99 09/20/21 18:17 79 130/79 09/20/21 18:13 76 100 09/20/21 18:08 78 100 09/20/21 18:05 102 H 90 09/20/21 18:03 88 100 09/20/21 18:02 82 110/61 09/20/21 17:58 86 100 09/20/21 17:53 83 99 09/20/21 17:48 79 99 09/20/21 17:46 76 121/61 09/20/21 17:43 87 98 09/20/21 17:41 97 H 95/52 L 09/20/21 17:38 88 98 09/20/21 17:37 88 105/57 L 09/20/21 17:33 85 97 09/20/21 17:31 88 97/55 L 09/20/21 17:28 91 H 99 09/20/21 17:27 89 97/55 L 09/20/21 17:23 91 H 99 09/20/21 17:20 93 H 98/57 L 09/20/21 17:18 94 H 98 09/20/21 17:15 98 H 97/54 L 09/20/21 17:13 94 H 98 02/09/22 17:10 88 98/57 L 09/20/21 17:08 85 99 09/20/21 17:06 88 96/52 L 09/20/21 17:03 80 98 09/20/21 17:00 85 103/55 L 09/20/21 16:58 89 98 09/20/21 16:57 87 102/57 L 09/20/21 16:55 36.9 C 16 09/20/21 16:53 109 H 98 09/20/21 16:50 83 114/66 09/20/21 16:48 87 97 09/20/21 16:46 83 121/65 09/20/21 16:43 87 97 09/20/21 16:41 85 113/65 09/20/21 16:38 99 H 98 09/20/21 16:36 86 110/68 09/20/21 16:33 94 H 96 09/20/21 16:30 88 110/61 09/20/21 16:28 96 H 97 09/20/21 16:25 94 H 115/63 09/20/21 16:23 87 96 09/20/21 16:21 89 115/63 09/20/21 16:18 97 H 97 09/20/21 16:15 88 114/67 09/20/21 16:13 87 97 09/20/21 16:12 101 H 93 09/20/21 16:11 83 113/64 09/20/21 16:08 91 H 96 09/20/21 16:05 36.9 C 93 H 16 110/62 09/20/21 16:03 90 97 09/20/21 16:01 83 109/61 09/20/21 15:58 94 H 98 09/20/21 15:56 80 117/68 09/20/21 15:53 90 97 09/20/21 15:50 85 112/65 09/20/21 15:48 88 97 09/20/21 15:46 83 112/67 09/20/21 15:43 92 H 100 09/20/21 15:42 75 112/65 09/20/21 15:38 81 98 09/20/21 15:36 91 H 110/58 L 94 09/20/21 15:33 83 99 09/20/21 15:30 91 H 87/51 L 02/09/22 15:28 85 99 09/20/21 15:25 91 H 85/49 L 09/20/21 15:23 90 98 09/20/21 15:21 84 93/49 L 09/20/21 15:18 91 H 98 09/20/21 15:16 95 H 93 09/20/21 15:15 84 92/54 L 09/20/21 15:13 87 99 09/20/21 15:10 86 91/55 L 09/20/21 15:08 85 97 09/20/21 15:07 82 98/50 L 09/20/21 15:04 37.2 C 14 09/20/21 15:03 84 98 09/20/21 15:00 102 H 96/53 L 09/20/21 14:58 88 98 09/20/21 14:56 93 H 89/54 L 09/20/21 14:53 83 98 09/20/21 14:50 93 H 89/52 L 09/20/21 14:48 91 H 98 09/20/21 14:46 92 H 87/54 L 09/20/21 14:43 84 98 09/20/21 14:41 105 H 92 09/20/21 14:40 93 H 94/51 L 09/20/21 14:38 91 H 99 09/20/21 14:35 86 89/53 L 09/20/21 14:33 90 100 09/20/21 14:30 87 97/55 L 09/20/21 14:28 90 99 09/20/21 14:27 82 103/61 09/20/21 14:23 90 99 09/20/21 14:20 82 97/57 L 09/20/21 14:18 94 H 100 09/20/21 14:15 84 95/55 L 09/20/21 14:13 84 100 09/20/21 14:11 83 90/54 L 09/20/21 14:08 86 100 09/20/21 14:07 91 H 110/55 L 09/20/21 14:03 113 H 100 09/20/21 14:01 88 103/59 L 09/20/21 13:58 91 H 100 09/20/21 13:56 86 98/53 L 09/20/21 13:53 96 H 100 09/20/21 13:50 98 H 117/69 09/20/21 13:48 83 100 09/20/21 13:45 81 110/66 09/20/21 13:43 81 100 09/20/21 13:41 79 115/68 09/20/21 13:38 82 100 09/20/21 13:35 81 110/64 09/20/21 13:33 81 100 09/20/21 13:31 76 107/61 09/20/21 13:28 82 100 09/20/21 13:27 112 H 86 L 09/20/21 13:26 94 H 92/50 L 09/20/21 13:23 84 100 09/20/21 13:20 99 H 86/52 L 09/20/21 13:18 106 H 100 09/20/21 13:17 93 H 93/51 L 09/20/21 13:13 89 100 09/20/21 13:10 84 94/54 L 09/20/21 13:08 74 100 09/20/21 13:05 77 90/50 L 09/20/21 13:03 88 90/53 L 100 09/20/21 13:02 83 97/55 L 09/20/21 12:59 83 83/53 L 09/20/21 12:58 84 100 09/20/21 12:53 82 100 09/20/21 12:48 84 99 09/20/21 12:43 77 109/62 100 09/20/21 12:38 89 100 09/20/21 12:33 75 100 09/20/21 12:28 75 110/62 100 09/20/21 12:23 79 100 09/20/21 12:18 78 100 09/20/21 12:14 77 109/60 09/20/21 12:13 79 98 09/20/21 12:08 88 100 09/20/21 12:03 81 100 09/20/21 12:00 74 104/66 09/20/21 11:58 87 100 09/20/21 11:53 76 100 09/20/21 11:48 73 100 09/20/21 11:47 96 H 91 09/20/21 11:43 74 101/64 100 09/20/21 11:38 79 100 09/20/21 11:33 83 92 09/20/21 11:29 78 106/67 09/20/21 11:28 72 100 09/20/21 11:23 103 H 100 09/20/21 11:18 79 100 09/20/21 11:14 77 100/57 L 09/20/21 11:13 75 100 09/20/21 11:08 75 100 09/20/21 11:03 72 99 09/20/21 10:58 81 100 09/20/21 10:53 80 100 09/20/21 10:52 76 15 97/60 L 09/20/21 10:48 75 99 09/20/21 10:43 73 98 09/20/21 10:42 71 111/66 09/20/21 10:38 84 99 09/20/21 10:36 84 88 L 09/20/21 10:34 73 106/66 09/20/21 10:33 75 100 09/20/21 10:32 84 105/63 09/20/21 10:28 76 100 09/20/21 10:23 80 100 09/20/21 10:21 76 103/62 09/20/21 10:18 79 100 09/20/21 10:17 103 H 91 09/20/21 10:14 87 97/55 L 09/20/21 10:13 85 100 09/20/21 10:12 84 100/55 L 09/20/21 10:11 85 103/55 L 09/20/21 10:09 88 91/54 L 09/20/21 10:08 88 100 09/20/21 10:06 82 101/63 09/20/21 10:05 84 96/54 L 09/20/21 10:04 83 87/51 L 09/20/21 10:03 84 100 09/20/21 10:02 85 90/51 L 09/20/21 10:01 82 90/50 L 09/20/21 09:59 82 105/61 09/20/21 09:58 91 H 99 09/20/21 09:57 82 102/60 09/20/21 09:53 96 H 100 09/20/21 09:48 99 H 100 09/20/21 09:43 75 99 09/20/21 09:38 77 100 09/20/21 08:31 36.9 C 67 22 117/73
--- NOTE | 2021-09-20 22:03 | Obstetrical Progress Note ---
Date of Service September 20, 2021 Assessment & Plan Admission and Anticipated Discharge Date Admission Date: September 18, 2021 Subjective Patient is reevaluated. She felt rectal pressure and head was found at +2 station. Started to push with each contractions but heart rate had prolonged deceleration to the 70s to 80s. Oxytocin was stopped and IV fluid bolus and nasal oxygen were started. heart rate recovered to 120s and then to 140s 150s with good variability and multiple accelerations. Head at 2 station, small scalp visible with each contractions. Pitocin was restarted and will continue to monitor closely and pushing. Results & Data ([facility]) Vital Signs (Past 12 Hours) Vital Signs Temp Pulse Resp BP Pulse Ox 09/20/21 21:59 100 H 99 09/20/21 21:54 101 H 99 09/20/21 21:49 101 H 99 09/20/21 21:46 101 H 81 L 09/20/21 21:44 101 H 100 09/20/21 21:40 83 85 L 09/20/21 21:38 83 97 09/20/21 21:33 67 100 09/20/21 21:32 105 H 114/75 91 09/20/21 21:28 81 100 09/20/21 21:23 109 H 100 09/20/21 21:18 104 H 109/67 98 09/20/21 21:13 78 98 09/20/21 21:08 82 97 09/20/21 21:03 80 97 09/20/21 21:02 74 123/69 09/20/21 20:58 83 98 09/20/21 20:53 81 99 09/20/21 20:48 78 126/77 100 09/20/21 20:43 80 100 09/20/21 20:38 81 99 09/20/21 20:33 80 100 09/20/21 20:31 82 116/67 09/20/21 20:28 81 100 09/20/21 20:23 77 100 09/20/21 20:18 107 H 97 09/20/21 20:16 86 104/57 L 09/20/21 20:13 87 99 09/20/21 20:08 85 98 09/20/21 20:03 90 100 09/20/21 20:01 83 99/54 L 09/20/21 19:58 88 99 09/20/21 19:53 86 100 09/20/21 19:48 84 100 09/20/21 19:47 81 104/56 L 09/20/21 19:43 89 100 09/20/21 19:38 80 100 09/20/21 19:34 93 H 93 09/20/21 19:33 82 100 09/20/21 19:28 75 100 09/20/21 19:23 79 100 09/20/21 19:18 94 H 116/67 100 09/20/21 19:16 96 H 92 09/20/21 19:13 77 99 09/20/21 19:08 77 100 09/20/21 19:03 80 98 09/20/21 19:02 73 125/77 09/20/21 18:58 77 100 09/20/21 18:53 73 100 09/20/21 18:48 73 100 09/20/21 18:46 71 129/78 09/20/21 18:43 73 100 09/20/21 18:38 79 99 09/20/21 18:33 78 100 09/20/21 18:28 83 100 09/20/21 18:23 77 99 09/20/21 18:18 77 99 09/20/21 18:17 79 130/79 09/20/21 18:13 76 100 09/20/21 18:08 78 100 09/20/21 18:05 102 H 90 09/20/21 18:03 88 100 09/20/21 18:02 82 110/61 09/20/21 17:58 86 100 09/20/21 17:53 83 99 09/20/21 17:48 79 99 09/20/21 17:46 76 121/61 09/20/21 17:43 87 98 09/20/21 17:41 97 H 95/52 L 09/20/21 17:38 88 98 09/20/21 17:37 88 105/57 L 09/20/21 17:33 85 97 09/20/21 17:31 88 97/55 L 09/20/21 17:28 91 H 99 09/20/21 17:27 89 97/55 L 09/20/21 17:23 91 H 99 09/20/21 17:20 93 H 98/57 L 09/20/21 17:18 94 H 98 09/20/21 17:15 98 H 97/54 L 09/20/21 17:13 94 H 98 09/20/21 17:10 88 98/57 L 09/20/21 17:08 85 99 09/20/21 17:06 88 96/52 L 09/20/21 17:03 80 98 09/20/21 17:00 85 103/55 L 09/20/21 16:58 89 98 09/20/21 16:57 87 102/57 L 09/20/21 16:55 36.9 C 16 09/20/21 16:53 109 H 98 09/20/21 16:50 83 114/66 09/20/21 16:48 87 97 09/20/21 16:46 83 121/65 09/20/21 16:43 87 97 09/20/21 16:41 85 113/65 09/20/21 16:38 99 H 98 09/20/21 16:36 86 110/68 09/20/21 16:33 94 H 96 09/20/21 16:30 88 110/61 09/20/21 16:28 96 H 97 09/20/21 16:25 94 H 115/63 09/20/21 16:23 87 96 09/20/21 16:21 89 115/63 09/20/21 16:18 97 H 97 09/20/21 16:15 88 114/67 09/20/21 16:13 87 97 09/20/21 16:12 101 H 93 09/20/21 16:11 83 113/64 09/20/21 16:08 91 H 96 09/20/21 16:05 36.9 C 93 H 16 110/62 09/20/21 16:03 90 97 09/20/21 16:01 83 109/61 09/20/21 15:58 94 H 98 09/20/21 15:56 80 117/68 09/20/21 15:53 90 97 09/20/21 15:50 85 112/65 09/20/21 15:48 88 97 09/20/21 15:46 83 112/67 09/20/21 15:43 92 H 100 09/20/21 15:42 75 112/65 09/20/21 15:38 81 98 09/20/21 15:36 91 H 110/58 L 94 09/20/21 15:33 83 99 09/20/21 15:30 91 H 87/51 L 09/20/21 15:28 85 99 09/20/21 15:25 91 H 85/49 L 09/20/21 15:23 90 98 09/20/21 15:21 84 93/49 L 09/20/21 15:18 91 H 98 09/20/21 15:16 95 H 93 09/20/21 15:15 84 92/54 L 09/20/21 15:13 87 99 09/20/21 15:10 86 91/55 L 09/20/21 15:08 85 97 09/20/21 15:07 82 98/50 L 09/20/21 15:04 37.2 C 14 09/20/21 15:03 84 98 09/20/21 15:00 102 H 96/53 L 09/20/21 14:58 88 98 09/20/21 14:56 93 H 89/54 L 09/20/21 14:53 83 98 09/20/21 14:50 93 H 89/52 L 09/20/21 14:48 91 H 98 09/20/21 14:46 92 H 87/54 L 09/20/21 14:43 84 98 09/20/21 14:41 105 H 92 09/20/21 14:40 93 H 94/51 L 09/20/21 14:38 91 H 99 09/20/21 14:35 86 89/53 L 09/20/21 14:33 90 100 09/20/21 14:30 87 97/55 L 09/20/21 14:28 90 99 09/20/21 14:27 82 103/61 09/20/21 14:23 90 99 09/20/21 14:20 82 97/57 L 09/20/21 14:18 94 H 100 09/20/21 14:15 84 95/55 L 09/20/21 14:13 84 100 09/20/21 14:11 83 90/54 L 09/20/21 14:08 86 100 09/20/21 14:07 91 H 110/55 L 09/20/21 14:03 113 H 100 09/20/21 14:01 88 103/59 L 09/20/21 13:58 91 H 100 09/20/21 13:56 86 98/53 L 09/20/21 13:53 96 H 100 09/20/21 13:50 98 H 117/69 09/20/21 13:48 83 100 09/20/21 13:45 81 110/66 09/20/21 13:43 81 100 09/20/21 13:41 79 115/68 09/20/21 13:38 82 100 09/20/21 13:35 81 110/64 09/20/21 13:33 81 100 09/20/21 13:31 76 107/61 09/20/21 13:28 82 100 09/20/21 13:27 112 H 86 L 09/20/21 13:26 94 H 92/50 L 09/20/21 13:23 84 100 09/20/21 13:20 99 H 86/52 L 09/20/21 13:18 106 H 100 09/20/21 13:17 93 H 93/51 L 09/20/21 13:13 89 100 09/20/21 13:10 84 94/54 L 09/20/21 13:08 74 100 09/20/21 13:05 77 90/50 L 09/20/21 13:03 88 90/53 L 100 09/20/21 13:02 83 97/55 L 09/20/21 12:59 83 83/53 L 09/20/21 12:58 84 100 09/20/21 12:53 82 100 09/20/21 12:48 84 99 09/20/21 12:43 77 109/62 100 09/20/21 12:38 89 100 09/20/21 12:33 75 100 09/20/21 12:28 75 110/62 100 09/20/21 12:23 79 100 09/20/21 12:18 78 100 09/20/21 12:14 77 109/60 09/20/21 12:13 79 98 09/20/21 12:08 88 100 09/20/21 12:03 81 100 09/20/21 12:00 74 104/66 09/20/21 11:58 87 100 09/20/21 11:53 76 100 09/20/21 11:48 73 100 09/20/21 11:47 96 H 91 09/20/21 11:43 74 101/64 100 09/20/21 11:38 79 100 0209/22 11:33 83 92 09/20/21 11:29 78 106/67 09/20/21 11:28 72 100 09/20/21 11:23 103 H 100 09/20/21 11:18 79 100 09/20/21 11:14 77 100/57 L 09/20/21 11:13 75 100 09/20/21 11:08 75 100 09/20/21 11:03 72 99 09/20/21 10:58 81 100 09/20/21 10:53 80 100 09/20/21 10:52 76 15 97/60 L 09/20/21 10:48 75 99 09/20/21 10:43 73 98 09/20/21 10:42 71 111/66 09/20/21 10:38 84 99 09/20/21 10:36 84 88 L 09/20/21 10:34 73 106/66 09/20/21 10:33 75 100 09/20/21 10:32 84 105/63 09/20/21 10:28 76 100 09/20/21 10:23 80 100 09/20/21 10:21 76 103/62 09/20/21 10:18 79 100 09/20/21 10:17 103 H 91 09/20/21 10:14 87 97/55 L 09/20/21 10:13 85 100 09/20/21 10:12 84 100/55 L 09/20/21 10:11 85 103/55 L 09/20/21 10:09 88 91/54 L 09/20/21 10:08 88 100 09/20/21 10:06 82 101/63 09/20/21 10:05 84 96/54 L 09/20/21 10:04 83 87/51 L 09/20/21 10:03 84 100 09/20/21 10:02 85 90/51 L
[2021-09-20] MEDS ORDERED: LIDOCAINE 1% LOCAL 20 ML VIAL ONE (23:42)
[2021-09-21] MEDS ORDERED: HYDROCORTISONE ACETATE 25 MG SUPP PR PRN (00:08)
[2021-09-21] MEDS ORDERED: BENZOCAINE 20% AER SPR 82.5 GM CAN EXT PRN (00:08)
[2021-09-21] MEDS ORDERED: MEASLES, MUMPS & RUBELLA VIRUS VIAL SQ ONE (00:08)
[2021-09-21] MEDS ORDERED: oxyCODONE/ACETAMINOPHEN 5mg/325mg TAB PO PRN (00:08)
[2021-09-21] MEDS ORDERED: bisacodyL 10 MG SUPP PR PRN (00:08)
[2021-09-21] MEDS ORDERED: DIPHTHERIA/TETANUS/PERTUSSIS 0.5 ML SYR/VIAL IM ONE (00:08)
[2021-09-21] MEDS ORDERED: ACETAMINOPHEN 325 MG TAB PO PRN (00:08)
[2021-09-21] MEDS ORDERED: OXYTOCIN 30 UNITS/500 ML BAG IV PRN (00:08)
--- NOTE | 2021-09-21 00:15 | Delivery Summary ---
Vaginal Delivery Summary Date of Service September 21, 2021 Vaginal Delivery Summary Patient was found to be fully dilated and desire to push. she pushed for about 2 hours and there was a tight band around hymeneal ring which was holding the head as . It was incised with the tip of seizures and the head was delivered without difficulty. The shoulders were delivered with minimal traction and the baby was handed off to the mother. Mouth and nose were suctioned, cord was clamped x2 and cut at 1 minute delay. The baby was vigorously moving and crying at that point. The cord blood was obtained. The vagina and perineum were checked for lacerations there was a small second-degree laceration at the hymenal ring which was incised before. This was repaired with 2-0 Vicryl in a running locked fashion bringing the mucosa together and skin in a subcuticular fashion. And there was a smaller first-degree vaginal laceration at 5 o'clock position, it was repaired with 2-0 Vicryl with [id number] stitches x2. Excellent hemostasis achieved. Rest of the vagina and perineum were intact. The placenta was found to be in the vagina, delivered spontaneously as intact and complete. It appeared to be bilobed and was sent for pathology. The uterus was explored and found to be empty. The lower segment was cleared of all clots and debris's. Fundus was firm and EBL was 200 mL. The mom and baby tolerated procedure well, sponge needle instrument count was correct x2. No complications happened, I was present during whole procedure.
[2021-09-21] MEDS: MESALAMINE 800 MG TABCR PO SCH ×3 (00:31→21:11)
[2021-09-21] MEDS: HYDROXYCHLOROQUINE SULFATE 200 MG TAB PO SCH ×3 (00:32→21:11)
[2021-09-21] MEDS: IBUPROFEN 600 MG TAB PO PRN ×5 (01:31→21:20)
--- NOTE | 2021-09-21 05:58 | Anesthesia Procedure Note ---
Date of Service September 21, 2021 Anesthesia Post Epidural Note Vital Signs Vital Signs: Temp Pulse Resp BP Pulse Ox 36.9 C 101 H 18 101/72 99 09/21/21 02:38 09/21/21 02:01 09/21/21 02:38 09/21/21 02:38 09/21/21 02:38 Notes Mental Status: alert / awake / arousable and participated in evaluation Nausea / Vomiting: adequately controlled Pain: adequately controlled Airway Patency, RR, SpO2: stable & adequate BP & HR: stable & adequate Hydration State: stable & adequate Neuraxial Anesthesia: was administered and sensory block is resolving Anesthetic Complications: no major complications apparent and Pt Satisfied with anesthetic care Epidural: Removed without complications and With tip intact
[2021-09-21] MEDS: FERROUS SULFATE 325 MG TAB PO SCH (08:48)
[2021-09-21] MEDS: DOCUSATE SODIUM 100 MG CAP PO SCH ×2 (08:48→21:11)
[2021-09-21] MEDS: PRENATAL VITAMIN 1 TAB PO SCH (08:48)
--- NOTE | 2021-09-21 10:25 | Obstetrical Progress Note ---
Date of Service September 21, 2021 Subjective Ambulation: ambulating normally Voiding: no voiding problems Passing Gas:: Yes Diet Tolerance:: regular diet Lochia:: Small Feeding Type:: breast feeding Current Pain Level(1-10): 0 Physical Exam Constitutional WD/WN, vitals as above comfortable abdomen soft and non-tender neg Nadia's no edema tent d/c in AM Results & Data ([facility]) Vital Signs (Past 12 Hours) Vital Signs Temp Pulse Resp BP BP Pulse Ox 09/21/21 02:38 36.9 C 18 101/72 99 09/21/21 02:01 101 H 98/61 L 09/21/21 01:46 92 H 109/60 09/21/21 01:31 100 H 111/55 L 09/21/21 01:16 112/67 09/21/21 01:01 88 108/68 09/21/21 00:47 80 114/64 09/21/21 00:31 87 91/51 L 09/21/21 00:16 123 H 102/66 09/21/21 00:02 88 93/56 L 09/20/21 23:53 97 H 90 09/20/21 23:50 98 H 97 09/20/21 23:47 105 H 91 09/20/21 23:46 102 H 93/55 L 09/20/21 23:45 103 H 89 L 09/20/21 23:42 103 H 94 09/20/21 23:40 116 H 93 09/20/21 23:35 97 H 90 09/20/21 23:32 127 H 125/75 09/20/21 23:29 179 H 74 L 09/20/21 23:24 103 H 94 09/20/21 23:19 101 H 99 09/20/21 23:18 87 92 09/20/21 23:17 103 H 140/71 09/20/21 23:14 96 H 86 L 09/20/21 23:09 83 97 09/20/21 23:04 117 H 97 09/20/21 23:03 114 H 94 09/20/21 23:01 105 H 134/82 09/20/21 22:59 93 H 97 09/20/21 22:58 97 H 90 09/20/21 22:54 119 H 98 09/20/21 22:52 120 H 88 L 09/20/21 22:49 115 H 90 09/20/21 22:47 115 H 109/58 L 09/20/21 22:44 107 H 98 09/20/21 22:43 37.0 C 18 09/20/21 22:39 111 H 98 09/20/21 22:34 124 H 98 09/20/21 22:29 92 H 100 09/20/21 22:24 91 H 100 Laboratory Results Laboratory Results - last 72 hr 09/18/21 09/18/21 09/19/21 20:10 20:12 07:05 WBC 7.61 RBC 4.47 Hgb 13.4 Hct 38.2 MCV 85.5 MCH 30.0 MCHC 35.1 RDW Std Deviation 47.2 H RDW Coeff of Raf 15.0 H Plt Count 197 MPV 9.8 Immature Gran % (Auto) Neut % (Auto) Lymph % (Auto) [place] % (Auto) Eos % (Auto) Baso % (Auto) Neut # (Auto) Lymph # (Auto) [place] # (Auto) Eos # (Auto) Baso # (Auto) Immature Gran # (Auto) PT INR APTT PTT Ratio Sodium Potassium Chloride Carbon Dioxide Anion Gap BUN Creatinine Est Cr Clr Drug Dosing Est GFR ( Amer) Est GFR (Non-Af Amer) BUN/Creatinine Ratio Glucose POC Glucose 87 70 Calcium Total Bilirubin AST ALT Alkaline Phosphatase Total Protein Albumin Globulin Albumin/Globulin Ratio 09/19/21 09/19/21 09/19/21 11:16 16:28 20:10 WBC RBC Hgb Hct MCV MCH MCHC RDW Std Deviation RDW Coeff of Raf Plt Count MPV Immature Gran % (Auto) Neut % (Auto) Lymph % (Auto) [place] % (Auto) Eos % (Auto) Baso % (Auto) Neut # (Auto) Lymph # (Auto) [place] # (Auto) Eos # (Auto) Baso # (Auto) Immature Gran # (Auto) PT INR APTT PTT Ratio Sodium Potassium Chloride Carbon Dioxide Anion Gap BUN Creatinine Est Cr Clr Drug Dosing Est GFR ( Amer) Est GFR (Non-Af Amer) BUN/Creatinine Ratio Glucose POC Glucose 84 65 L* 110 H Calcium Total Bilirubin AST ALT Alkaline Phosphatase Total Protein Albumin Globulin Albumin/Globulin Ratio 09/20/21 09/20/21 09/20/21 02:08 05:11 07:54 WBC 10.40 RBC 4.79 Hgb 14.0 Hct 41.2 MCV 86.0 MCH 29.2 MCHC 34.0 RDW Std Deviation 48.9 H RDW Coeff of Raf 15.0 H Plt Count 203 MPV 10.2 Immature Gran % (Auto) 0.4 Neut % (Auto) 75.5 Lymph % (Auto) 14.8 [place] % (Auto) 8.2 Eos % (Auto) 0.9 Baso % (Auto) 0.2 Neut # (Auto) 7.86 H Lymph # (Auto) 1.54 [place] # (Auto) 0.85 H Eos # (Auto) 0.09 Baso # (Auto) 0.02 Immature Gran # (Auto) 0.04 H PT INR APTT PTT Ratio Sodium Potassium Chloride Carbon Dioxide Anion Gap BUN Creatinine Est Cr Clr Drug Dosing Est GFR ( Amer) Est GFR (Non-Af Amer) BUN/Creatinine Ratio Glucose POC Glucose 75 78 Calcium Total Bilirubin AST ALT Alkaline Phosphatase Total Protein Albumin Globulin Albumin/Globulin Ratio 09/20/21 09/20/21 09/20/21 07:54 07:54 07:56 WBC RBC Hgb Hct MCV MCH MCHC RDW Std Deviation RDW Coeff of Raf Plt Count MPV Immature Gran % (Auto) Neut % (Auto) Lymph % (Auto) [place] % (Auto) Eos % (Auto) Baso % (Auto) Neut # (Auto) Lymph # (Auto) [place] # (Auto) Eos # (Auto) Baso # (Auto) Immature Gran # (Auto) PT 9.5 INR 0.9 APTT 30.4 PTT Ratio 1.2 Sodium 133 L Potassium 3.8 Chloride 105 Carbon Dioxide 19 L Anion Gap 9 BUN 6 Creatinine 0.50 L Est Cr Clr Drug Dosing 149.7 Est GFR ( Amer) 147.4 Est GFR (Non-Af Amer) 127.2 BUN/Creatinine Ratio 12.0 Glucose 74 POC Glucose 72 Calcium 8.8 Total Bilirubin 0.5 AST 12 L ALT 7 Alkaline Phosphatase 212 H Total Protein 6.5 Albumin 3.4 Globulin 3.1 Albumin/Globulin Ratio 1.1 09/20/21 09/20/21 11:57 17:39 WBC RBC Hgb Hct MCV MCH MCHC RDW Std Deviation RDW Coeff of Raf Plt Count MPV Immature Gran % (Auto) Neut % (Auto) Lymph % (Auto) [place] % (Auto) Eos % (Auto) Baso % (Auto) Neut # (Auto) Lymph # (Auto) [place] # (Auto) Eos # (Auto) Baso # (Auto) Immature Gran # (Auto) PT INR APTT PTT Ratio Sodium Potassium Chloride Carbon Dioxide Anion Gap BUN Creatinine Est Cr Clr Drug Dosing Est GFR ( Amer) Est GFR (Non-Af Amer) BUN/Creatinine Ratio Glucose POC Glucose 58 L* 63 L* Calcium Total Bilirubin AST ALT Alkaline Phosphatase Total Protein Albumin Globulin Albumin/Globulin Ratio
[2021-09-22 06:52] LABS: Hematocrit (blood only) 35.3 % (37-47); Hemoglobin 11.8 g/dL (12.0-16.0); Mean Corpuscular Hgb Conc 33.4 g/dL (32-36); Mean Corpuscular Volume 86.7 fL (80-100); Mean Platelet Volume 9.9 fL (7.4-10.4); Platelet Count 171 K/uL (130-400); RDW Coefficient of Variation 15.5 % (11.5-14.5); Red Blood Count 4.07 M/uL (4.2-5.4); White Blood Count 9.19 K/uL (4.8-10.8)
[2021-09-22] MEDS: PRENATAL VITAMIN 1 TAB PO SCH (08:20)
[2021-09-22] MEDS: IBUPROFEN 600 MG TAB PO PRN ×2 (08:20→14:25)
[2021-09-22] MEDS: DOCUSATE SODIUM 100 MG CAP PO SCH (08:20)
[2021-09-22] MEDS: FERROUS SULFATE 325 MG TAB PO SCH (08:20)
--- NOTE | 2021-09-22 08:54 | Obstetrical Progress Note ---
Date of Service September 22, 2021 Assessment & Plan Admission and Anticipated Discharge Date Admission Date: September 18, 2021 Subjective Patient is seen and examined. She feels well, no complaints. Ambulating without dizziness Voiding without difficulty Tolerating regular diet with out N&V Bleeding is minimal No fever/ chills/ CP/ SOB/ N&V/ Leg pain Breast feeding without problems Vital Signs Temp Pulse Resp BP Pulse Ox 09/21/21 19:57 36.8 C 78 18 99/68 L 09/21/21 15:20 36.8 C 83 18 107/70 98 09/21/21 12:41 37.0 C 82 18 102/67 96 Lab Results 09/18/21 09/18/21 09/19/21 Range/Units 20:10 20:12 07:05 WBC 7.61 (4.8-10.8) K/uL RBC 4.47 (4.2-5.4) M/uL Hgb 13.4 (12.0-16.0) g/dL Hct 38.2 (37-47) % MCV 85.5 (80-100) fL MCH 30.0 (25-34) pg MCHC 35.1 (32-36) g/dL RDW Std Deviation 47.2 H (36.4-46.3) fL RDW Coeff of Raf 15.0 H (11.5-14.5) % Plt Count 197 (130-400) K/uL MPV 9.8 (7.4-10.4) fL Immature Gran % (Auto) % Neut % (Auto) % Lymph % (Auto) % [place] % (Auto) % Eos % (Auto) % Baso % (Auto) % Neut # (Auto) (1.4-6.5) K/uL Lymph # (Auto) (1.2-3.4) K/uL [place] # (Auto) (0.11-0.59) K/uL Eos # (Auto) (0-0.5) K/uL Baso # (Auto) (0-0.2) K/uL Immature Gran # (Auto) (0.00-0.02) K/uL PT (9.0-12.0) Seconds INR (0.9-1.1) APTT (21.0-31.0) Seconds PTT Ratio Sodium (136-145) mmol/L Potassium (3.5-5.1) mmol/L Chloride (98-107) mmol/L Carbon Dioxide (21-32) mmol/L Anion Gap (3-11) BUN (6-23) mg/dl Creatinine (0.6-1.2) mg/dl Est Cr Clr Drug Dosing ml/min Est GFR ( Amer) ml/min Est GFR (Non-Af Amer) ml/min BUN/Creatinine Ratio (10-20) Glucose (70-99(Fasting)) mg/dl POC Glucose 87 70 (70-99) mg/dl Calcium (8.5-10.1) mg/dl Total Bilirubin (0.2-1.0) mg/dl AST (13-39) U/L ALT (7-52) U/L Alkaline Phosphatase (34-104) U/L Total Protein (6.0-8.3) gm/dl Albumin (3.4-5.0) gm/dl Globulin (2.5-4.0) gm/dl Albumin/Globulin Ratio (0.9-2) 09/19/21 09/19/21 09/19/21 Range/Units 11:16 16:28 20:10 WBC (4.8-10.8) K/uL RBC (4.2-5.4) M/uL Hgb (12.0-16.0) g/dL Hct (37-47) % MCV (80-100) fL MCH (25-34) pg MCHC (32-36) g/dL RDW Std Deviation (36.4-46.3) fL RDW Coeff of Raf (11.5-14.5) % Plt Count (130-400) K/uL MPV (7.4-10.4) fL Immature Gran % (Auto) % Neut % (Auto) % Lymph % (Auto) % [place] % (Auto) % Eos % (Auto) % Baso % (Auto) % Neut # (Auto) (1.4-6.5) K/uL Lymph # (Auto) (1.2-3.4) K/uL [place] # (Auto) (0.11-0.59) K/uL Eos # (Auto) (0-0.5) K/uL Baso # (Auto) (0-0.2) K/uL Immature Gran # (Auto) (0.00-0.02) K/uL PT (9.0-12.0) Seconds INR (0.9-1.1) APTT (21.0-31.0) Seconds PTT Ratio Sodium (136-145) mmol/L Potassium (3.5-5.1) mmol/L Chloride (98-107) mmol/L Carbon Dioxide (21-32) mmol/L Anion Gap (3-11) BUN (6-23) mg/dl Creatinine (0.6-1.2) mg/dl Est Cr Clr Drug Dosing ml/min Est GFR ( Amer) ml/min Est GFR (Non-Af Amer) ml/min BUN/Creatinine Ratio (10-20) Glucose (70-99(Fasting)) mg/dl POC Glucose 84 65 L* 110 H (70-99) mg/dl Calcium (8.5-10.1) mg/dl Total Bilirubin (0.2-1.0) mg/dl AST (13-39) U/L ALT (7-52) U/L Alkaline Phosphatase (34-104) U/L Total Protein (6.0-8.3) gm/dl Albumin (3.4-5.0) gm/dl Globulin (2.5-4.0) gm/dl Albumin/Globulin Ratio (0.9-2) 09/20/21 09/20/21 09/20/21 Range/Units 02:08 05:11 07:54 WBC 10.40 (4.8-10.8) K/uL RBC 4.79 (4.2-5.4) M/uL Hgb 14.0 (12.0-16.0) g/dL Hct 41.2 (37-47) % MCV 86.0 (80-100) fL MCH 29.2 (25-34) pg MCHC 34.0 (32-36) g/dL RDW Std Deviation 48.9 H (36.4-46.3) fL RDW Coeff of Raf 15.0 H (11.5-14.5) % Plt Count 203 (130-400) K/uL MPV 10.2 (7.4-10.4) fL Immature Gran % (Auto) 0.4 % Neut % (Auto) 75.5 % Lymph % (Auto) 14.8 % [place] % (Auto) 8.2 % Eos % (Auto) 0.9 % Baso % (Auto) 0.2 % Neut # (Auto) 7.86 H (1.4-6.5) K/uL Lymph # (Auto) 1.54 (1.2-3.4) K/uL [place] # (Auto) 0.85 H (0.11-0.59) K/uL Eos # (Auto) 0.09 (0-0.5) K/uL Baso # (Auto) 0.02 (0-0.2) K/uL Immature Gran # (Auto) 0.04 H (0.00-0.02) K/uL PT (9.0-12.0) Seconds INR (0.9-1.1) APTT (21.0-31.0) Seconds PTT Ratio Sodium (136-145) mmol/L Potassium (3.5-5.1) mmol/L Chloride (98-107) mmol/L Carbon Dioxide (21-32) mmol/L Anion Gap (3-11) BUN (6-23) mg/dl Creatinine (0.6-1.2) mg/dl Est Cr Clr Drug Dosing ml/min Est GFR ( Amer) ml/min Est GFR (Non-Af Amer) ml/min BUN/Creatinine Ratio (10-20) Glucose (70-99(Fasting)) mg/dl POC Glucose 75 78 (70-99) mg/dl Calcium (8.5-10.1) mg/dl Total Bilirubin (0.2-1.0) mg/dl AST (13-39) U/L ALT (7-52) U/L Alkaline Phosphatase (34-104) U/L Total Protein (6.0-8.3) gm/dl Albumin (3.4-5.0) gm/dl Globulin (2.5-4.0) gm/dl Albumin/Globulin Ratio (0.9-2) 09/20/21 09/20/21 09/20/21 Range/Units 07:54 07:54 07:56 WBC (4.8-10.8) K/uL RBC (4.2-5.4) M/uL Hgb (12.0-16.0) g/dL Hct (37-47) % MCV (80-100) fL MCH (25-34) pg MCHC (32-36) g/dL RDW Std Deviation (36.4-46.3) fL RDW Coeff of Raf (11.5-14.5) % Plt Count (130-400) K/uL MPV (7.4-10.4) fL Immature Gran % (Auto) % Neut % (Auto) % Lymph % (Auto) % [place] % (Auto) % Eos % (Auto) % Baso % (Auto) % Neut # (Auto) (1.4-6.5) K/uL Lymph # (Auto) (1.2-3.4) K/uL [place] # (Auto) (0.11-0.59) K/uL Eos # (Auto) (0-0.5) K/uL Baso # (Auto) (0-0.2) K/uL Immature Gran # (Auto) (0.00-0.02) K/uL PT 9.5 (9.0-12.0) Seconds INR 0.9 (0.9-1.1) APTT 30.4 (21.0-31.0) Seconds PTT Ratio 1.2 Sodium 133 L (136-145) mmol/L Potassium 3.8 (3.5-5.1) mmol/L Chloride 105 (98-107) mmol/L Carbon Dioxide 19 L (21-32) mmol/L Anion Gap 9 (3-11) BUN 6 (6-23) mg/dl Creatinine 0.50 L (0.6-1.2) mg/dl Est Cr Clr Drug Dosing 149.7 ml/min Est GFR ( Amer) 147.4 ml/min Est GFR (Non-Af Amer) 127.2 ml/min BUN/Creatinine Ratio 12.0 (10-20) Glucose 74 (70-99(Fasting)) mg/dl POC Glucose 72 (70-99) mg/dl Calcium 8.8 (8.5-10.1) mg/dl Total Bilirubin 0.5 (0.2-1.0) mg/dl AST 12 L (13-39) U/L ALT 7 (7-52) U/L Alkaline Phosphatase 212 H (34-104) U/L Total Protein 6.5 (6.0-8.3) gm/dl Albumin 3.4 (3.4-5.0) gm/dl Globulin 3.1 (2.5-4.0) gm/dl Albumin/Globulin Ratio 1.1 (0.9-2) 09/20/21 09/20/21 09/22/21 Range/Units 11:57 17:39 06:34 WBC 9.19 (4.8-10.8) K/uL RBC 4.07 L (4.2-5.4) M/uL Hgb 11.8 L (12.0-16.0) g/dL Hct 35.3 L (37-47) % MCV 86.7 (80-100) fL MCH 29.0 (25-34) pg MCHC 33.4 (32-36) g/dL RDW Std Deviation 50.0 H (36.4-46.3) fL RDW Coeff of Raf 15.5 H (11.5-14.5) % Plt Count 171 (130-400) K/uL MPV 9.9 (7.4-10.4) fL Immature Gran % (Auto) % Neut % (Auto) % Lymph % (Auto) % [place] % (Auto) % Eos % (Auto) % Baso % (Auto) % Neut # (Auto) (1.4-6.5) K/uL Lymph # (Auto) (1.2-3.4) K/uL [place] # (Auto) (0.11-0.59) K/uL Eos # (Auto) (0-0.5) K/uL Baso # (Auto) (0-0.2) K/uL Immature Gran # (Auto) (0.00-0.02) K/uL PT (9.0-12.0) Seconds INR (0.9-1.1) APTT (21.0-31.0) Seconds PTT Ratio Sodium (136-145) mmol/L Potassium (3.5-5.1) mmol/L Chloride (98-107) mmol/L Carbon Dioxide (21-32) mmol/L Anion Gap (3-11) BUN (6-23) mg/dl Creatinine (0.6-1.2) mg/dl Est Cr Clr Drug Dosing ml/min Est GFR ( Amer) ml/min Est GFR (Non-Af Amer) ml/min BUN/Creatinine Ratio (10-20) Glucose (70-99(Fasting)) mg/dl POC Glucose 58 L* 63 L* (70-99) mg/dl Calcium (8.5-10.1) mg/dl Total Bilirubin (0.2-1.0) mg/dl AST (13-39) U/L ALT (7-52) U/L Alkaline Phosphatase (34-104) U/L Total Protein (6.0-8.3) gm/dl Albumin (3.4-5.0) gm/dl Globulin (2.5-4.0) gm/dl Albumin/Globulin Ratio (0.9-2) PE: General: Alert, orientedx3, NAD Abd: soft, NT, fundus firm, below Umbilicus Perineum intact, Lochia rubra minimal Ext; NT, no edema AP: 31 yo s/p , ppd# 2 VSS Afebrile doing well Continue routine care All questions were answered Discussed when to call D/C home , f/u in office
[2021-09-22] MEDS ORDERED: bisacodyL 5 MG TABEC PO SCH (20:00)
--- NOTE | 2021-09-29 13:29 | Coding Query ---
CODING QUERY To promote full compliance with coding requirements relating to patient care, provider participation is requested in all cases of jewel hole cornerer uncertainty. Please assist us with the question(s) below: Coding Question(s): Documentation begins on the 09/20 Progress Note of, "She has a history of SLE, Crohn's, Raynaud's disease, autoimmune hepatitis". Please specify below, in your clinical opinion, regarding Raynaud's disease. ( ) Raynaud's disease complicating /childbirth ( ) Raynaud's disease is not complicating /childbirth ( x ) Other: Please Specify__history of Raynaud's disease. Physician's Response(s): Thank you Gertrudis Van Principal Diagnosis: "that condition established after study, to be chiefly responsible for occasioning the admission of the patient to the hospital for care." Co-Existing Principal Diagnosis: "when two or more diagnoses equally meet the criteria for principal diagnosis as determined by the circumstances of admission, diagnostic work up, and/or therapy provided, and the Alphabetic Index, Tabular List, or another coding guideline does not provide sequencing direction, any one of the diagnoses may be sequenced first." "When the physician has documented what appears to be a current diagnosis in the body of the record, but has not included the diagnosis in the final diagnostic statement, the physician should be asked whether the diagnosis should be added." (Source [facility] 2 QTR90. p3-4) RHEA
== END 2021-09-22 15:35 | disposition home or self-care (01) | DRG 806 ==
LOC: 4S1 19:05 → 4S2 09-21 03:07

== ENCOUNTER 2024-01-09 14:21 | Inpatient (IN) ==
[2024-01-10] MEDS: LACTATED RINGER'S 1,000 ML IV PRN (09:30)
[2024-01-10] MEDS ORDERED: OXYTOCIN 30 UNITS/NSS 30 UNITS/500 ML BAG IV PRN ×2 (09:31→23:21)
[2024-01-10] MEDS ORDERED: LIDOCAINE 1% LOCAL 20 ML VIAL INFIL PRN (09:31)
--- NOTE | 2024-01-10 09:48 | History & Physical Report ---
Date of Service January 10, 2024 Assessment & Plan (1) High risk , multigravida of advanced maternal age in third trime ster: Plan: induction of labor Admission and Anticipated Discharge Date Admission Date: January 10, 2024 History of Present Illness Chief Complaint: induction of labor Primary Care Provider: LEE PCP 33 F [id number] at 39.4 weeks with IOL scheduled for Lupus and AMA. GBS is negative. Allergies Allergy/AdvReac Type Severity Reaction Status Date / Time avocado Allergy Hives Verified 09/18/21 21:33 jhony Allergy Hives Verified 09/18/21 21:33 No Known Drug Allergies Allergy Unknown Verified 09/18/21 21:33 Home Medications Medication Instructions Recorded Confirmed Type hydroxychloroquine 200 mg tablet 200 mg PO HS 03/09/19 01/10/24 History mesalamine 1.2 gram tablet,delayed 1.2 g PO HS 09/18/21 01/10/24 History release vits no.124-ferrous fum 1 tab PO DAILY@08 #90 tabs 09/22/21 01/10/24 Rx 27 mg iron-folic acid 800 mcg tablet ( Vitamin) famotidine 20 mg tablet (Pepcid) 20 mg PO HS 01/10/24 01/10/24 History Patient History Medical History (spontaneous vaginal delivery) 2021 Autoimmune hepatitis 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 colitis History of colon polyps History of anesthesia reaction "shakes when coming out of it" Ulcerative colitis Systemic lupus erythematosus Migraine Surgical History History of liver biopsy 2005--normal PEG (percutaneous endoscopic gastrostomy) adjustment/replacement/removal had during gastric surgery, no longer has History of gastric surgery removal of diverticulum History of appendectomy History of colonoscopy History of esophagogastroduodenoscopy (EGD) History of tooth extraction History of wisdom tooth extraction Family History Mother Family history of reaction to anesthesia nausea/vomiting Uncle Family hx of colon cancer Other Family history of cancer in mother Social History Smoking Status: Never smoker Second Hand Exposure: No; Do You Dip or Chew Tobacco: No; Hx Alcohol Use: No Hx Substance Use: No Preferred Language: Luxembour[place] Communication Ability: Effective Glove Turner Required: No Beliefs That Will Affect Care: None marital status: Current Living Situation: Family current occupational status: employed Other Information That Helps Us Care for You: No Feels Safe at Home: Yes Safety Concerns: Feels Safe At This Time Assistive Devices: None OB History multigravity DRAUGHTSMAN History neg Review of Systems All systems reviewed & are unremarkable except as noted in HPI & below Physical Exam Constitutional: WD/WN, vitals as above Eyes: PERRL, conjunctivae normal, anicteric sclerae Respiratory: normal respiratory effort, lungs clear to auscultation Gastrointestinal (Abdomen): Inspection/Auscultation: abdomen normal to inspection Musculoskeletal: Extremities: extremities normal to inspection Skin: no rashes, warm and dry Neurologic: patellar DTR's 2+ bilat, sensation intact Psychiatric: A+Ox3, euthymic affect Genitourinary: OB Exam Abdomen: + fundal height, + vertex and + estimated weight (7 lbs.) Manual OB Exam: + cervical dilation 2 cm, + cervical effacement 60% and + station -2 OB Exam Monitor Tracing: + external FHT monitor used, + external uterine monitor used, + category I and + normal FHT variability Results & Data Vital Signs (Past 12 Hours) Vital Signs Temp Pulse Resp BP 01/10/24 08:09 36.6 C 20 01/10/24 08:04 86 117/76 Code Status & VTE Plan VTE Prophylaxis Plan VTE Prophylaxis will be ordered: No
[2024-01-10] MEDS: OXYTOCIN 30 UNITS/NSS 30 UNITS/500 ML BAG IV PRN (09:52)
[2024-01-10 09:53] LABS: Hematocrit (blood only) 34.2 % (37.0-47.0); Hemoglobin 11.5 g/dl (12.0-16.0); Mean Corpuscular Hemoglobin 27.2 pg (25.0-34.0); Mean Corpuscular Hgb Conc 33.6 g/dL (32.0-36.0); Mean Corpuscular Volume 80.9 fL (80.0-100.0); Mean Platelet Volume 10.6 fL (9.4-12.4); Platelet Count 216 K/uL (130-400); RDW Coefficient of Variation 14.1 % (11.5-14.5); RDW Standard Deviation 41.4 fL (36.4-46.3); Red Blood Count 4.23 M/uL (4.20-5.40); White Blood Count 7.43 K/ul (4.8-10.8)
--- NOTE | 2024-01-10 13:58 | Labor Progress Brief Note ---
Date of Service January 10, 2024 Assessment & Plan Admission and Anticipated Discharge Date Admission Date: January 10, 2024 Physical Exam Genitourinary: Manual OB Exam: + cervical dilation 3 cm, + cervical effacement 80%, + station -2 and + amniotic fluid (AROM with Amni-hook clear fluid) clear OB Exam Monitor Tracing: + external FHT monitor used, + external uterine monitor used, + category I and + normal FHT variability Results & Data Vital Signs (Past 12 Hours) Vital Signs Temp Pulse Resp BP Pulse Ox 01/10/24 13:34 20 01/10/24 13:34 36.5 C 20 01/10/24 12:58 70 112/66 01/10/24 12:07 67 112/74 01/10/24 11:02 66 107/69 01/10/24 10:16 94 01/10/24 10:16 88 01/10/24 10:16 81 94 01/10/24 10:11 90 94 01/10/24 10:09 84 94 01/10/24 10:06 81 93 01/10/24 10:01 76 96 01/10/24 10:00 83 103/66 01/10/24 09:51 75 104/65 01/10/24 08:09 36.6 C 20 01/10/24 08:04 86 117/76
[2024-01-10] MEDS ORDERED: ePHEDrine sulfate 50 MG/ML AMP ONE (16:35)
[2024-01-10] MEDS: LIDOCAINE 2%/EPINEPHRINE 1:200,000 20 ML PF ONE (17:06)
[2024-01-10] MEDS: fentaNYL citrate PF 100 MCG/2 ML VIAL ONE (17:06)
[2024-01-10] MEDS: fentANYL 2 MCG/ML BUPIVacaine 0.125%-NSS 100ML BAG ONE (17:06)
--- NOTE | 2024-01-10 17:20 | Anesthesiology Consultation ---
Date of Service January 10, 2024 Assessment & Plan Chart Review Chart Review: Acceptable Risk for Labor Epidural Consults Requested none History Height/Weight Height: 5 ft 2 in Weight: 80.739 kg Allergies Allergy/AdvReac Type Severity Reaction Status Date / Time avocado Allergy Hives Verified 09/18/21 21:33 jhony Allergy Hives Verified 09/18/21 21:33 No Known Drug Allergies Allergy Unknown Verified 09/18/21 21:33 Medications Home Medications Medication Instructions Recorded Confirmed Last Taken hydroxychloroquine 200 mg tablet 200 mg PO HS 03/09/19 01/10/24 01/09/24 20:00 mesalamine 1.2 gram tablet,delayed 1.2 g PO HS 09/18/21 01/10/24 01/09/24 20:00 release vits no.124-ferrous fum 1 tab PO DAILY@08 #90 tabs 09/22/21 01/10/24 01/09/24 20:00 27 mg iron-folic acid 800 mcg tablet ( Vitamin) famotidine 20 mg tablet (Pepcid) 20 mg PO HS 01/10/24 01/10/24 01/09/24 20:00 Active Medications Generic Name Dose Route Start Last Admin Trade Name Freq PRN Reason Stop Dose Admin Lactated Ringer's 1,000 mls @ 125 mls/hr 01/10/24 09:31 01/10/24 16:51 Lr IV 01/12/24 09:30 999 mls/hr .Q8H PRN Administration L&D Protocol Protocol Oxytocin 30 units in 500 mls @ 15 mls/hr 01/10/24 09:31 01/10/24 16:00 Pitocin 30 Units/Nss IV 01/12/24 09:30 0.9 units/hr .Q24H PRN 15 mls/hr Labor Induction/Augmentation Titration Protocol 0.9 UNITS/HR Past Medical History Medical History (spontaneous vaginal delivery) 2021 Autoimmune hepatitis 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 colitis History of colon polyps History of anesthesia reaction "shakes when coming out of it" Ulcerative colitis Systemic lupus erythematosus Migraine Past Family History Family History Mother Family history of reaction to anesthesia nausea/vomiting Uncle Family hx of colon cancer Other Family history of cancer in mother Past Surgical History Surgical History History of liver biopsy 2005--normal PEG (percutaneous endoscopic gastrostomy) adjustment/replacement/removal had during gastric surgery, no longer has History of gastric surgery removal of diverticulum History of appendectomy History of colonoscopy History of esophagogastroduodenoscopy (EGD) History of tooth extraction History of wisdom tooth extraction Social History Smoking Status: Never smoker Do You Dip or Chew Tobacco: No Hx Alcohol Use: No Alcohol type: beer alcohol intake frequency: a few times a week Hx Substance Use: No substance use type: does not use Physical Exam Vital Signs Last Vital Signs Temp 36.6 C 01/10/24 15:32 Pulse 96 H 01/10/24 17:18 Resp 20 01/10/24 17:15 BP 113/65 01/10/24 17:18 Pulse Ox 100 01/10/24 17:15 Testing Laboratory Results 01/10/24 09:27 Blood Type O Positive 01/10/24 09:24 Antibody Screen NEGATIVE 01/10/24 09:24
[2024-01-10] MEDS ORDERED: ePHEDrine sulfate 50 MG/ML AMP IV PRN (17:22)
[2024-01-10] MEDS ORDERED: SODIUM CHLORIDE 0.9% PF INJ 10 ML VIAL EPI PRN (17:22)
[2024-01-10] MEDS ORDERED: ROPIVACAINE 0.5% PF 5 MG/ML 20 ML VIAL EPI PRN (17:22)
[2024-01-10] MEDS ORDERED: NALBUPHINE HCL 5 MG in SYRINGE 0 ML IV PRN (17:22)
[2024-01-10] MEDS ORDERED: LIDOCAINE 2% MPF LOCAL 5 ML VIAL EPI PRN (17:22)
[2024-01-10] MEDS ORDERED: BUPIVACAINE 0.25% PF 30 ML VIAL EPI PRN (17:22)
[2024-01-10] MEDS ORDERED: diphenhydrAMINE 50 MG/ML VIAL IV PRN (17:22)
[2024-01-10] MEDS ORDERED: fentANYL 2 MCG/ML BUPIVacaine 0.125%-NSS 100ML BAG EPI PRN (17:22)
[2024-01-10] MEDS ORDERED: NALOXONE HCL 1 MG in SODIUM CHLORIDE 0.9% 1,000 ML IV PRN (17:22)
[2024-01-10] MEDS ORDERED: fentaNYL citrate PF 100 MCG/2 ML VIAL EPI PRN (17:22)
[2024-01-10] MEDS ORDERED: NALOXONE HCL 0.4 MG/1 ML VIAL/CARP IV PRN (17:22)
--- NOTE | 2024-01-10 17:32 | Labor Progress Brief Note ---
Date of Service January 10, 2024 Assessment & Plan Admission and Anticipated Discharge Date Admission Date: January 10, 2024 Physical Exam Genitourinary: Manual OB Exam: + cervical dilation 6 cm, + cervical effacement 90%, + station 0 and + amniotic fluid clear OB Exam Monitor Tracing: + external FHT monitor used, + external uterine monitor used, + category I and + normal FHT variability Results & Data Vital Signs (Past 12 Hours) Vital Signs Temp Pulse Resp BP Pulse Ox 01/10/24 17:30 91 H 100 01/10/24 17:25 89 100 01/10/24 17:24 90 107/61 01/10/24 17:20 93 H 20 100 01/10/24 17:18 96 H 113/65 01/10/24 17:16 87 111/59 L 01/10/24 17:15 87 20 100 01/10/24 17:14 96 H 120/65 01/10/24 17:12 85 120/62 01/10/24 17:10 20 01/10/24 17:10 20 01/10/24 17:10 100 01/10/24 17:10 90 01/10/24 17:10 85 123/71 01/10/24 17:08 86 126/75 01/10/24 17:06 81 124/64 01/10/24 17:05 86 20 153/75 H 100 01/10/24 17:02 86 131/77 01/10/24 17:00 74 100 01/10/24 16:55 85 100 01/10/24 16:51 73 93 01/10/24 16:50 97 01/10/24 16:50 83 01/10/24 16:50 74 137/73 01/10/24 16:02 68 116/70 01/10/24 15:32 36.6 C 01/10/24 15:02 65 114/72 01/10/24 14:00 76 108/67 01/10/24 13:34 20 01/10/24 13:34 36.5 C 20 01/10/24 12:58 70 112/66 01/10/24 12:07 67 112/74 01/10/24 11:02 66 107/69 01/10/24 10:16 94 01/10/24 10:16 88 01/10/24 10:16 81 94 01/10/24 10:11 90 94 01/10/24 10:09 84 94 01/10/24 10:06 81 93 01/10/24 10:01 76 96 01/10/24 10:00 83 103/66 01/10/24 09:51 75 104/65 01/10/24 08:09 36.6 C 20 01/10/24 08:04 86 117/76
[2024-01-10] MEDS: BUPIVACAINE 0.25% PF 30 ML VIAL ONE (18:30)
[2024-01-10] MEDS: SODIUM CHLORIDE 0.9% PF INJ 10 ML VIAL ONE (18:30)
[2024-01-10] MEDS: BUPIVACAINE 0.25% PF 30 ML VIAL EPI STA (18:31)
[2024-01-10] MEDS: fentaNYL citrate PF 100 MCG/2 ML VIAL EPI STA (18:31)
[2024-01-10] MEDS: SODIUM CHLORIDE 0.9% PF INJ 10 ML VIAL EPI STA (18:31)
[2024-01-10] MEDS: LIDOCAINE 2%/EPINEPHRINE 1:200,000 20 ML PF EPI STA (18:31)
--- NOTE | 2024-01-10 20:12 | Labor Progress Brief Note ---
Date of Service January 10, 2024 Assessment & Plan Admission and Anticipated Discharge Date Admission Date: January 10, 2024 Physical Exam Genitourinary: Manual OB Exam: + cervical dilation (anterior lip) 9 cm and 10 cm, + cervical effacement 100%, + station + 1 and + amniotic fluid clear OB Exam Monitor Tracing: + external FHT monitor used, + external uterine monitor used, + category I and + normal FHT variability Results & Data Vital Signs (Past 12 Hours) Vital Signs Temp Pulse Resp BP Pulse Ox 01/10/24 20:05 100 H 100 01/10/24 20:01 86 108/63 01/10/24 20:00 84 100 01/10/24 19:55 94 H 99 01/10/24 19:50 94 H 100 01/10/24 19:46 90 112/61 01/10/24 19:45 87 100 01/10/24 19:40 95 H 99 01/10/24 19:35 96 H 99 01/10/24 19:31 18 01/10/24 19:31 18 01/10/24 19:30 93 H 100 01/10/24 19:29 85 109/61 01/10/24 19:25 93 H 99 01/10/24 19:20 85 100 01/10/24 19:16 110 H 91 01/10/24 19:15 85 111/62 100 01/10/24 19:10 83 100 01/10/24 19:09 18 01/10/24 19:09 37.1 C 18 01/10/24 19:05 93 H 100 01/10/24 19:00 100 01/10/24 19:00 92 H 01/10/24 19:00 83 122/75 01/10/24 18:55 83 100 01/10/24 18:50 84 100 01/10/24 18:45 76 106/60 100 01/10/24 18:40 96 H 100 01/10/24 18:35 74 100 01/10/24 18:30 100 01/10/24 18:30 73 01/10/24 18:30 69 99/55 L 01/10/24 18:25 77 100 01/10/24 18:20 87 100 01/10/24 18:16 83 107/65 01/10/24 18:15 84 98 01/10/24 18:10 82 110/61 100 01/10/24 18:05 81 100 01/10/24 18:00 86 99 01/10/24 17:59 72 91/52 L 01/10/24 17:55 78 99 01/10/24 17:50 92 H 98 01/10/24 17:45 100 01/10/24 17:45 88 01/10/24 17:45 81 95/55 L 01/10/24 17:43 95 H 92 01/10/24 17:41 80 99/56 L 01/10/24 17:40 83 100 01/10/24 17:36 88 110/64 01/10/24 17:35 87 97 01/10/24 17:30 91 H 20 100 01/10/24 17:25 89 100 01/10/24 17:24 90 107/61 01/10/24 17:22 36.9 C 01/10/24 17:20 93 H 20 100 01/10/24 17:18 96 H 113/65 01/10/24 17:16 87 111/59 L 01/10/24 17:15 87 20 100 01/10/24 17:14 96 H 120/65 01/10/24 17:12 85 120/62 01/10/24 17:10 20 01/10/24 17:10 20 01/10/24 17:10 100 01/10/24 17:10 90 01/10/24 17:10 85 123/71 01/10/24 17:08 86 126/75 01/10/24 17:06 81 124/64 01/10/24 17:05 86 20 153/75 H 100 01/10/24 17:02 86 131/77 01/10/24 17:00 74 100 01/10/24 16:55 85 100 01/10/24 16:51 73 93 01/10/24 16:50 97 01/10/24 16:50 83 01/10/24 16:50 74 137/73 01/10/24 16:02 68 116/70 01/10/24 15:32 36.6 C 01/10/24 15:02 65 114/72 01/10/24 14:00 76 108/67 01/10/24 13:34 20 01/10/24 13:34 36.5 C 20 01/10/24 12:58 70 112/66 01/10/24 12:07 67 112/74 01/10/24 11:02 66 107/69 01/10/24 10:16 94 01/10/24 10:16 88 01/10/24 10:16 81 94 01/10/24 10:11 90 94 01/10/24 10:09 84 94 01/10/24 10:06 81 93 01/10/24 10:01 76 96 01/10/24 10:00 83 103/66 01/10/24 09:51 75 104/65
[2024-01-10] MEDS ORDERED: HYDROCORTISONE ACETATE 25 MG SUPP PR PRN (23:21)
[2024-01-10] MEDS ORDERED: DIPHTHER/TETAN/PERTUS Vaccine (Tdap, Adol/Adult) 0.5mL IM ONE (23:21)
[2024-01-10] MEDS ORDERED: bisacodyL 10 MG SUPP PR PRN (23:21)
--- NOTE | 2024-01-10 23:24 | Delivery Summary ---
Vaginal Delivery Summary Date of Service January 10, 2024 Vaginal Delivery Summary live male JAYLON over intact perineum after baby found to be asynclitic with slight shoulder dystocia resolved with Sav maneuver. Cord doubly clamped and cut and baby to warmer for care. Apgars pending. Cord blood obtained for ABG's and cord blood. Spontaneous delivery of intact placenta. No tears. EBL 60 ml. Mom stable and baby to nursery for observation.
--- NOTE | 2024-01-10 23:35 | Anesthesia Procedure Note ---
Date of Service January 10, 2024 Anesthesia Post Epidural Note Vital Signs Vital Signs: Temp Pulse Resp BP Pulse Ox 37.1 C 81 18 102/56 L 97 01/10/24 19:09 01/10/24 23:28 01/10/24 19:31 01/10/24 23:28 01/10/24 23:07 Pain Intensity Bilateral Abdomen: Pain Intensity: 0 Notes Mental Status: alert / awake / arousable Nausea / Vomiting: adequately controlled Pain: adequately controlled Airway Patency, RR, SpO2: stable & adequate BP & HR: stable & adequate Hydration State: stable & adequate Neuraxial Anesthesia: was administered and sensory block is resolving Anesthetic Complications: no major complications apparent and Pt Satisfied with anesthetic care Epidural: Removed without complications and With tip intact
[2024-01-10 23:50] LABS: Base Excess Cord Venous Blood -8.8 mEq/L (-7.7-1.9); Cord Venous Blood HCO3 18 mmol/L (18.4-26.8); Cord Venous Blood PCO2 41 mmHg (30.4-57.2); Cord Venous Blood PO2 23 mmHg (14.1-43.3); Cord Venous Blood pH 7.25 (7.20-7.44); O2 Saturation Cord Venous Bld < 60.0 % (<68)
[2024-01-11] MEDS: IBUPROFEN 600 MG TAB PO PRN (06:44)
[2024-01-11 07:22] LABS: Hematocrit (blood only) 32.8 % (37.0-47.0); Hemoglobin 10.7 g/dl (12.0-16.0); Mean Corpuscular Hemoglobin 26.7 pg (25.0-34.0); Mean Corpuscular Hgb Conc 32.6 g/dL (32.0-36.0); Mean Corpuscular Volume 81.8 fL (80.0-100.0); Mean Platelet Volume 11.2 fL (9.4-12.4); Platelet Count 211 K/uL (130-400); RDW Coefficient of Variation 14.2 % (11.5-14.5); RDW Standard Deviation 41.8 fL (36.4-46.3); Red Blood Count 4.01 M/uL (4.20-5.40); White Blood Count 17.56 K/ul (4.8-10.8)
--- OUTSIDE RECORDS SUMMARY | 2024-01-11 07:38 | External Medical Summary | Summary of Care ---
Author Name Unknown Organization [facility] Address [address] [place] [address] Phone [phone] Care Team Providers Care Occ Ther Name Role Phone Eliseo Palmer MD Primary Care Provider + Reason for Visit * Reason Comments Return Visit Non Stress Test Encounter Details Date Type Department Care Team (Late st Contact Info) Description 12/11/2023 9:15 AM EDT Office Visit Gynecology/Obstetric s [facility] [address] [place] [id number] Siobhan Purcell CRNP [address] [place] [address] [place] Non Stress Tests [facility] [address] [place] [id number] High-risk in third trimester*; Ulcerative colitis without complications, unspecified location (HCC); Systemic lupus complicating (HCC); Autoimmune hepatitis (HCC); Antepartum multigravida of advanced maternal age; History of gestational diabetes in prior , currently ; H/O migraine during ; Antepartum anemia complicating Allergies No known active allergiesdocumented as of this encounter (statuses as of 12/11/2023) Medications Medication Sig Dispensed Refills Start Date End Date Status Vitamins 28-0.8 MG Oral Tablet TAKE 1 TABLET BY MOUTH EVERY DAY AT 8 AM 0 09/25/2021 Active Glucagon Emergency 1 MG Injection Kit INJECT INTO A LARGE MUSCLE 1MG ONCE FOR 1 DOSE. TAKE NEEDED FOR SEVERE HYPOGLYCEMIA 0 11/28/2021 Active Mesalamine 1.2 GM Oral Tablet Delayed Release (Lialda) Take 2 Tablets (2,400 mg) by mouth in the morning. 1 daily. 180 Tablet 1 06/18/2022 Active Hydroxychloroquine Sulfate 200 MG Oral Tablet (Plaquenil) TAKE 1 TABLET BY MOUTH EVERY DAY 90 Tablet 1 11/29/2022 Active Aspirin 81 MG Oral Tablet Chewable (Aspirin 81) Take 1 Tablet by mouth in the morning. 0 Active Iron-Vitamin C 65-125 MG Oral Tablet (Vitron C) Take 1 Tablet by mouth in the morning and 1 Tablet before bedtime. 60 Tablet 3 10/25/2023 Active documented as of this encounter (statuses as of 12/11/2023) Active Problems Problem Noted Date Diagnosed Date Antepartum anemia complicating 024 Overview: Start BID iron at 28 wks H/O migraine during 06/18/2023 Overview: Patient reports history of migraines associated with her menstrual cycle. Currently experiencing frequent migraines in . Avoids Tylenol due to history of autoimmune Hepatitis. Has taken it occasionally for severe pain. Last Assessment & Plan: She states that her migraine headaches are improving. She states that she has not take acetaminophen if she has a migraine headache. We discussed taking magnesium and vitamin B2 as prophylaxis for migraine headaches. I also told her that she can take Excedrin tension Headache as it has only acetaminophen and caffeine in it. High-risk 06/18/2023 Antepartum multigravida of advanced maternal age 1006/10/2023 Overview: Ms. Malin will be 33 years-old at time of delivery (DENIA 01/13/24). Low risk NIPT Last Assessment & Plan: I reviewed ultrasound with her. The anatomy that was visualized unremarkable and the amniotic fluid volume is subjectively normal. The fetus is in the breech presentation and the biometry is appropriate for gestational age. Reviewed low risk noninvasive screen in light of her normal ultrasound findings. History of gestational diabe lesley in prior , currently 06/10/2023 Overview: History of GDMA2 in 2021 . Patient aware to complete early 1 hour GCT at her earliest convenience. Last Assessment & Plan: Reviewed with patient that women who have a history of GDM in a previous may have up to a 75% risk for GDM in subsequent pregnancies. Recommend obtaining early one hour Glucola screen and repeat again at 26-28 weeks if early screen is normal. 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 Patient had workup for jaundice and elevated LFT's. Liver biopsy findings were consistent with autoimmune hepatitis. Patient treated with Azathioprine and prednisone taper at the time. Follows routinely with Hepatology. Recent LFTs normal. [facility] recommends monitoring LFTs in . Latest Reference Range & Units 06/12/23 14:56 Albumin 3.8 - 5.0 g/dL 4.2 AST 10 - 35 U/L 13 ALT 10 - 35 U/L 22 Alkaline Phosphatase 35 - 130 U/L 55 Bilirubin, Total <=1.2 mg/dL <0.2 Bilirubin, Direct 0.0 - 0.3 mg/dL <0.2 Last Assessment & Plan: Women appropriately treated for autoimmune hepatitis can have successful pregnancies. in women with autoimmune hepatitis has been associated with an increased risk of prematurity, low weight, and loss. Recommend routine monitoring of LFTs throughout . Raynaud's disease without gangrene 07/13/2020 Last Assessment & Plan: On July 10, she had negative SSA and SSB antibodies. Systemic lupus complicating 05/12/2020 Overview: Diagnosed 2004; currently follows with [facility]. She reports stable disease on Plaquenil 200 mg daily. Denies recent flares. Recommend bASA 81 mg daily beginning at 12-13 weeks; patient also took this in previous . She saw Rheumatology earlier this year and states that her provider was aware of her plan to try to conceive. She will reach out to Rheumatology to notify them that she is now . Ordered SSA/SSB antibodies Baseline Preeclampsia Labs Lab Results Component Value Date/Time PLATELET AUTO - [facility] 224 06/12/2023 02:56 PM CREATININE - [facility] 0.6 06/12/2023 02:56 PM AST - [facility] 13 06/12/2023 02:56 PM ALT - [facility] 22 06/12/2023 02:56 PM 07/10: SSA/SSB antibodies negative. Last Assessment & Plan: CONSIDERATIONS: Reviewed that SLE is associated with an increase in obstetrical complications including miscarriage, delivery, growth restriction, intrauterine demise, pre-eclampsia, hemorrhage, and deep-vein thrombosis. Discussed with patient that maternal and prognosis is best when lupus disease has been under good control for at least 6 months pre-conception with creatinine of less than 1.5 mg/dl, no baseline proteinuria, and well-controlled blood pressure. Prognosis is also improved by the absence of associated antiphospholipid antibody syndrome or SSA/SSB antibodies. Explained to patient that steroid administration may be needed to treat acute exacerbations of lupus or chronically to keep the disorder under control. Explained that there is a theoretical risk of increased incidence of cleft lip/palate with steroid administration in the first trimester. Other risks of steroid use are an increased risk of developing gestational diabetes and a small increase in the risk of premature rupture of amniotic membranes. Discussed that the risks of steroid administration in are far outweighed by the maternal risk of harm with uncontrolled lupus. Explained that Plaquenil (hydroxychloroquine) may be used in if benefit outweighs risk, particularly if maternal disease was well-controlled on this medication prior to . It has a very long elimination half-life, somewhere between weeks to months. Therefore, discontinuing it when the is known does not eliminate the risk and could jeopardize the from a lupus flare. Several studies suggest improved outcomes in women on Plaquenil, with no evidence of an increase in malformations or morbidity. The [place] [employer] classifies the drug as compatible with . Explained that if SSA/SSB antibodies are abnormal then the fetus has a 0.5% risk of developing heart block. If there is a history of a previous child with congenital heart block, the risk of a subsequent child developing congenital heart block increases to 8-16%. RECOMMENDATIONS: Recommend referral to Rheumatology for evaluation and management of lupus. Recommend screening for presence of SSA/SSB antibodies. MFM will order this and relay results to patient and primary OB provider. Recommend baseline lab evaluation with CBC, serum AST/ALT/creatinine, and 24 hour urine protein. This can be coordinated by patient's primary OB provider. Recommend assuring accurate dating of with an early ultrasound, if not already performed. Recommend Maternal Medicine ultrasound for anatomy at 19-20 weeks and for growth every 4 weeks in the third trimester. Recommend weekly surveillance beginning at 32 weeks for uncomplicated lupus; if active/complicated will individualize timing/frequency of surveillance If lupus remains stable, recommend delivery by EDC. Autoimmune hepatitis 05/15/2019 Overview: LFTs every trimester Last Assessment & Plan: I reviewed her most recent liver function tests with her on August 08. She states that her autoimmune hepatitis is under good control. She has not had any exacerbations during this . Transaminitis 05/14/2019 Ulcerative colitis Overview: History of open abdominal surgery with temporary GI tube (~2010). Follows with [facility]. Stable on Mesalamine; denies recent flares. Had GI follow-up and colonoscopy earlier this year. Plans to notify them of current . Last Assessment & Plan: CONSIDERATIONS: Discussed with the patient that it is optimal to attempt conception at a time when her disease is in remission. If IBD is in remission at the time of conception, it often stays in remission during the . Women with active disease at time of conception are more likely to have active disease during their and exacerbation . Explained that women with IBD may be at increased risk for premature delivery, low weight infants, antepartum hemorrhage, and miscarriage or ectopic . These risks are increased in women with active disease. Reviewed that children of women with Inflammatory Bowel Disease (IBD), such as Crohn s or Ulcerative Colitis, are at an increased risk of developing IBD and that symptoms may occur earlier in the child s life than in the mother s life. RECOMMENDATIONS: Recommend continued care with her GI specialist for management. If possible, surgery should be avoided during ; medical management should be optimized in women with worsening symptoms. Recommend a Maternal Medicine ultrasound for anatomy at 19-20 weeks gestation and growth at 28-30 weeks gestation, with consideration of serial growth ultrasounds in the third Recommend delivery for patients who have had perianal disease, rectal involvement from their IBD, or an ilioanal pouch. For all other women with IBD (including those with colostomy or ileostomy), the route of delivery should be based on the obstetrical necessity and indication. Avoid midline episiotomy. Systemic lupus Long-term use of immunosuppressant medication Estimated Date of Delivery Comme nts Yes 01/13/2024 Based on last me nstrual period of 04/08/2023 (Within Days) documented as of this encounter (statuses as of 12/11/2023) Resolved Problems Problem Noted Date Diagnosed Date Resolved Date Insulin controlled gestation al diabetes mellitus (GDM) in third trimester 07/11/20212022 Overview: One hour GTT 146, failed 3 hour with 2/4 elevtions. 07/12/21 MFM consult- will be meeting with RACHID Lyles 07/19/21 and reporting fasting and one hour PP blood sugars weekly by MyG. 07/18 first 3 days, 1 elevated F, 3 elevated PP/email to patient 07/19 10 units lantus BID 07/27 F down, will monitor for 1 week 08/22 stable NSTs 32 weeks, growth q4 wks, deliver 39th week Last Assessment & Plan: Following with [facility] for GDM. Anemia complicating pregnanc y, third trimester 07/05/2021 01/16/2023 Overview: IV iron therapy recommended and scheduled to begin Venofer on 07/14/21 Supervision of high-risk pre gnancy, unspecified trimester 03/22/2021 01/16/2023 Supervision of high-risk pre gnancy, unspecified trimester 05/12/2020 07/13/2020 Overview: O+, rubella immune, , GI problems 05/12/202007/13 Overview: Hx ulcerative colitis Well adult exam 05/25/2019 06/18/2023 Overview: Needs yearly a1c (hx gest DM) NEED ck to see if has had PCV13&23. Alpha 1 antitrypsin checked? Jaundice 05/14/2019 05/25/2019 documented as of this encounter (statuses as of 12/11/2023) Immunizations Name Administration Dates Next Due Seasonal Influenza Virus Vac cine, Unspecified Formulation 08/26/2018 Seasonal Influenza, PF, 6 M & above, IM , (FluLaval or Fluzone) 05/18/2023,04/19/2021,05/12/2020 Seasonal Influenza, Quadriva lent, No Preserve, Mdck 08/20/2018 TDAP (age 10 and older)(Boostrix) 10/24/2023, documented as of this encounter Social History Tobacco Use Types Packs/Day Years Used Date Smoking Tobacco: Never Smokeless Tobacco: Never Alcohol Use Standard Drinks/Week Comments Not Currently 5 (1 standard drink = 0.6 oz pur e alcohol) Denies in PHQ-2 Answer Date Recorded PHQ Adult Total Score 0 10/24/2023 Hunger Vital Sign Answer Date Recorded Within the past 12 months, y ou worried that your food would run out before you got the money to buy more. Never true 12/10/19 23 Within the past 12 months, t he food you bought just didn't last and you didn't have money to get more. Never true 12/09/2022 [place] Depression Scale Answer Date Recorded [place] Depression Scale Total 0 01/23/2022 The thought of harming myself has occurred to me . Never 01/23/2022 Estimated Date of Delivery Comme nts Yes 01/13/2024 Based on last me nstrual period of 04/08/2023 (Within Days) Sex and Gender Information Value Date Recorded Sex Assigned at Female 04/03/2021 8:24 AM EDT Gender Identity Female 04/03/2021 8:24 AM EDT Sexual Orientation Straight 04/03/2021 8: 24 AM EDT Job Start Date Occupation Industry Not on file Not on file Not on file documented as of this encounter Last Filed Vital Signs Vital Sign Reading Time Taken Comments Blood Pressure 88/64 12/11/2023 9:09 AM EDT Pulse - - Temperature - - Respiratory Rate - - Oxygen Saturation - - Inhaled Oxygen Concentration - - Weight 78.5 kg (173 lb) 12/11/2023 9:09 AM EDT Height 157.5 cm (5' 2") 12/11/2023 9:09 AM EDT Body Mass Index 31.64 12/11/2023 9:09 AM EDT documented in this encounter Functional Status Functional Status Response Date of Assess ment Are you deaf or do you have serious difficulty h earing? No 05/14/2019 Are you blind or do you have serious difficulty seeing, even when wearing glasses? No 05/14/2019 Do you have serious difficul ty walking or climbing stairs? (5 years old or older) No 05/14/2019 Do you have difficulty dress ing or bathing? (5 years old or older) No 05/14/2019 Because of a physical, menta l, or emotional condition, do you have difficulty doing errands alone such as visiting a doctor s office or shopping? (15 years old or older) No 05/14/20 19 Cognitive Status Response Date of Assessm ent Because of a physical, menta l, or emotional condition, do you have serious difficulty concentrating, remembering, or making decisions? (5 years old or older) No 05/14/2019 documented as of this encounter Progress Notes * Siobhan Purcell CRNP - 12/11/2023 9:56 AM EDT ASSESSMENT assessment with Non-stress Test completed on 12/11/2023 at 35.2weeks gestation for indication of lupus heart baseline: 130 bpm Variability: Moderate Decelerations: absent Accelerations: present Contractions: None NST start time: 0914 NST stop time: 09 NST strip reviewed, interpreted, and approved by OB Siobhan garza CRNP . NST strip stored in clinic storage file documented in this encounter Nursing Notes * Elizabeth Salvador LPN - 12/11/2023 9:21 AM EDT 35w2d KARLT, SUDHIR documented in this encounter Plan of Treatment Upcoming Encounters Date Type Department Care Team (Late st Contact Info) Description 12/12/2023 8:40 AM EDT Office Visit Rheumatology [place] [id number] [facility] [place] [address] Gildardo Johnson MD [facility] [place] [address] 12/18/2023 9:00 AM EDT Office Visit Gynecology/Obstetrics, [place] [address] [place] [address] Leola Elizondo PA-C [address] [place] [address] Nakia Mendez Stress Test [address] [place] [address] 12/25/2023 9:00 AM EDT Office Visit Gynecology/Obstetrics Richy Carrion [address] [place] [id number] Siobhan Purcell CRNP [address] [place] [address] [place] Non Stress Tests [facility] [address] [place] [address] 01/01/2024 9:00 AM EDT Office Visit Gynecology/Obstetrics Richy Carrion [address] [place] [address] Siobhan Purcell CRNP [address] [place] [address] [place], Non Stress Tests [facility] [address] [place] [address] 01/02/2024 8:45 AM EDT Imaging Maternal Medicine Imaging, Becca Carrion [address] [place] [phone] 01/08/2024 9:00 AM EDT Office Visit Gynecology/Obstetrics Richy Carrion [address] [place] [address] Siobhan Purcell CRNP [address] [place] [address] [place], Non Stress Tests [facility] [address] [place] [address] Scheduled Procedures Name Priority Associated Diagnoses Date/Ti me COLONOSCOPY FLEXIBLE PROXIMA L DIAGNOSTIC Recall Ulcerative colitis (HCC) Health Maintenance Due Date Last Done Comments Pneumococcal Vaccine: Pediatrics (0 to 5 Years) and At-Risk Patients (6 to 64 Years) (1 of 2 - PCV) 1994 COVID-19 Vaccine ( - 2022- season) 2023 Depression Screening 10/23/2024 10/24/2023 Diabetes Screening 01/21/2026 01/21/2023, 0 01/21/2023, 11/30/2021, Additional history exists PAP SMEAR-EVERY 5 YRS,AGES 21-100 06/10/2028 06/10/2023, 05/12/2020, 05/29/2019 Colonoscopy 2033 01/22/2023, 01/22/2023 DTaP,Tdap,and Td Vaccines (3 - Td or Tdap) 10/23/2033 10/24/2023, 07/03/2021 Influenza Vaccine (FLU shot) Completed 02/2023, 04/19/2021, 05/12/2020, Additional history exists GARDASIL-HPV IMMUNIZATION SERIES Aged Out No longer eligible based on patient's age to complete this topic MENINGOCOCCAL (MENACTRA/MENVEO) Aged Out No longer eligible based on patient's age to complete this topic documented as of this encounter Medical Devices Not on filedocumented as of this encounter Visit Diagnoses Diagnosis High-risk in third trimester- Primary Ulcerative colitis without complications, unspecified location (HCC) Systemic lupus complicating (HCC) Other current maternal conditions classifiable elsewhere, complicating , childbirth, or the puerperium, unspecified as to episode of care Autoimmune hepatitis (HCC) Autoimmune hepatitis Antepartum multigravida of advanced maternal age History of gestational diabetes in prior , currently with other poor obstetric history H/O migraine during Supervision of other high-risk Antepartum anemia complicating Anemia, antepartum documented in this encounter Advance Directives Latest Code Status on File Code Status Date Activated Date Inactivated Comments Full Code 05/14/2019 10:55 PM 05/19/2019 6:46 PM This order reflects the patients wishes and were consensually agreed upon. Question Answer Comments Discussion of Advance Directives occurred with: Patient Care Teams Occ Ther Relationship Specialty Start Date End Date Eliseo Palmer MD [address] [place] [id number] PCP - General Family Medicine 05/19/19 documented as of this encounter
--- OUTSIDE RECORDS SUMMARY | 2024-01-11 07:38 | External Medical Summary | Summary of Care ---
Author Name Unknown Organization [facility] Address [address] [place] [address] Phone [phone] Care Team Providers Care Nondestructive Tester Name Role Phone Eliseo Palmer MD Primary Care Provider + Reason for Visit * Reason Comments Return Visit Encounter Details Date Type Department Care Team (Late st Contact Info) Description 12/18/2023 9:00 AM EDT Office Visit Gynecology/Obstetric s Richy Carrion [address] [place] [address] Luis Johnson MD [address] [place] [address] Nakia Carrion Stress Tests Becca [address] [place] [address] Ulcerative pancolitis without complication (HCC)*; Systemic lupus complicating (HCC); Autoimmune hepatitis (HCC); Antepartum multigravida of advanced maternal age; History of gestational diabetes in prior , currently ; H/O migraine during ; High-risk in third trimester; Antepartum anemia complicating Allergies No known active allergiesdocumented as of this encounter (statuses as of 12/18/2023) Medications Medication Sig Dispensed Refills Start Date End Date Status Vitamins 28-0.8 MG Oral Tablet TAKE 1 TABLET BY MOUTH EVERY DAY AT 8 AM 0 09/25/2021 Active Mesalamine 1.2 GM Oral Tablet Delayed [...] as of this encounter (statuses as of 12/18/2023) Active Problems Problem Noted Date Diagnosed Date [...] currently 06/10/2023 Overview: History of GDMA2 in 2022 . Patient aware to complete early 1 [...] hepatitis 03/23/2021 Overview: I reviewed records from financial reporting director in 2019. Patient had workup for jaundice and elevated LFT's. Liver biopsy findings were consistent with autoimmune hepatitis. Patient treated with Azathioprine and prednisone taper at the time. Follows routinely with Hepatology. Recent LFTs normal. [facility] recommends monitoring LFTs in . Latest Reference [...] 05/12/2020 Overview: Diagnosed 2004; currently follows with [facility] Rheumatology. She reports stable disease on [...] Results Component Value Date/Time PLATELET AUTO - ISINGER 224 06/12/2023 02:56 PM CREATININE - [facility] [...] an increase in malformations or morbidity. The [place] [employer] classifies the drug as [...] with temporary GI tube (~2010). Follows with Tho [facility]. Stable on Mesalamine; denies recent flares. Had [...] as of this encounter (statuses as of 12/18/2023) Resolved Problems Problem Noted Date Diagnosed Date [...] as of this encounter (statuses as of 12/18/2023) Immunizations Name Administration Dates Next Due Seasonal [...] money to get more. Never true 12/09/2022 Mathias Depression Scale Answer Date Recorded Mathias Depression Scale Total 0 01/23/2022 The thought [...] Sign Reading Time Taken Comments Blood Pressure 100/58 12/18/2023 9:33 AM EDT Pulse - - Temperature - - Respiratory Rate - - Oxygen Saturation - - Inhaled Oxygen Concentration - - Weight 78 kg (172 lb) 12/18/2023 9:33 AM EDT Height 157.5 cm (5' 2") 12/18/2023 9:33 AM EDT Body Mass Index 31.46 12/18/2023 9:33 AM EDT documented in this encounter Functional [...] as of this encounter Progress Notes * Luis Johnson MD - 12/18/2023 9:42 AM EDT Pt doing well S/p Lupus on Plaquenil NST today ASSESSMENT assessment with Non-stress Test completed on 12/18/2023 at 36 weeks gestation for indication ofLupus heart baseline: 13 bpm Variability: Moderate Decelerations: absent Accelerations: present Contractions: None NST start time: 8.59am NST stop time: 9.20am NST strip reviewed, interpreted, and approved by OB provider, macy. NST strip stored in clinic storage file documented in this encounter Plan of Treatment Upcoming Encounters Date Type Department Care Team (Late st Contact Info) Description 12/25/2023 9:00 AM EDT Office Visit Gynecology/Obstetrics Richy Carrion [address] [place] [address] Siobhan Purcell CRNP [address] [place] [address] Carrion, Non Stress Tests Becca [address] [place] [address] 01/01/2024 9:00 AM EDT Office Visit Gynecology/Obstetrics Richy Carrion [address] [place] [address] Siobhan Purcell CRNP [address] [place], [place] [address] Carrion, Non Stress Tests [place] [address] [place] [address] 01/02/2024 8:45 AM EDT Imaging Maternal Medicine Imaging, [place] [id number] 01/08/2024 9:00 AM EDT Office Visit Gynecology/Obstetrics Richy Carrion [address] [place] [address] Siobhan Purcell CRNP [address] [place] [address] Murali, Non Stress Tests [place] [address] [place] [address] 12/30/2024 8:40 AM EDT Office Visit Rheumatology [place] [address] [place] [address] Gildardo Johnson MD [facility] [place] [address] Pending Results Name Type Priority Associated Diagnoses Date /Time GROUP B STREP CULTURE/PCR Lab Routine Systemic lupus complicating (HCC) 12/18/2023 9:42 AM EDT Scheduled Orders Name Type Priority Associated Diagnoses Orde r Schedule GROUP B STREP CULTURE/PCR Lab Routine Systemic lupus complicating (HCC) Expected: 12/18/2023, Expires: 12/17/2024 Scheduled Procedures Name Priority Associated Diagnoses Date/Ti me COLONOSCOPY FLEXIBLE PROXIMA L DIAGNOSTIC Recall Ulcerative colitis (HCC) Health Maintenance Due Date Last Done Comments Pneumococcal Vaccine: Pediatrics (0 to 5 Years) and At-Risk Patients (6 to 64 Years) (1 of 2 - PCV) 1994 COVID-19 Vaccine ( - 2022-24 season) 2023 Depression Screening 10/23/2024 10/24/2023 Diabetes [...] as of this encounter Visit Diagnoses Diagnosis Ulcerative pancolitis without complication (HCC)- Primary Systemic lupus complicating (HCC) Other current maternal conditions classifiable elsewhere, complicating , childbirth, or the puerperium, unspecified as to episode of care Autoimmune hepatitis (HCC) Autoimmune hepatitis Antepartum multigravida of advanced maternal age History of gestational diabetes in prior , currently with other poor obstetric history H/O migraine during Supervision of other high-risk High-risk in third trimester Antepartum anemia complicating Anemia, antepartum documented in this encounter Advance Directives Latest Code Status on File Code Status Date Activated Date Inactivated Comments Full Code 05/14/2019 10:55 PM 05/19/2019 6:46 PM This order reflects the patients wishes and were consensually agreed upon. Question Answer Comments Discussion of Advance Directives occurred with: Patient Care Teams Nondestructive Tester Relationship Specialty Start Date End Date Eliseo Palmer MD [address] [place] [address] PCP - General Family Medicine 05/19/19 documented as of this encounter
--- OUTSIDE RECORDS SUMMARY | 2024-01-11 07:38 | External Medical Summary | Summary of Care ---
Author Name Unknown Organization [facility] Address [address] [place] [address] Phone [phone] Care Team Providers Care Farm Management Teacher Name Role Phone Eliseo Palmer MD Primary Care Provider + Encounter Details Date Type Department Care Team (Late st Contact Info) Description 12/05/2023 8:00 AM EDT Office Visit Networks Software Consultant Obstetrics Maternal Medicine, [address] [address] Meagan Phelps, DO [address] [place] [address] Systemic lupus complicating (HCC)*; Ulcerative colitis without complications, unspecified location (HCC); Antepartum multigravida of advanced maternal age; Autoimmune hepatitis (HCC); Ultrasound for screening for growth restriction; 34 weeks gestation of Allergies No known active allergiesdocumented as of this encounter (statuses as of 12/05/2023) Medications Medication Sig Dispensed Refills Start Date [...] as of this encounter (statuses as of 12/05/2023) Active Problems Problem Noted Date Diagnosed Date [...] hepatitis 03/23/2021 Overview: I reviewed records from industrial sales engineer in 2019. Patient had workup for jaundice and elevated LFT's. Liver biopsy findings were consistent with autoimmune hepatitis. Patient treated with Azathioprine and prednisone taper at the time. Follows routinely with Hepatology. Recent LFTs normal. [facility] recommends monitoring LFTs in . Latest [...] 05/12/2020 Overview: Diagnosed 2004; currently follows with [facility] Rheumatology. She reports stable disease on Plaquenil [...] an increase in malformations or morbidity. The [place] [employer] Pediatrics classifies the drug as [...] with temporary GI tube (~2010). [facility]. Stable on Mesalamine; denies recent flares. [...] as of this encounter (statuses as of 12/05/2023) Resolved Problems Problem Noted Date Diagnosed Date [...] as of this encounter (statuses as of 12/05/2023) Immunizations Name Administration Dates Next Due Seasonal [...] money to get more. Never true 12/09/2022 Atwood Depression Scale Answer Date Recorded Atwood Depression Scale Total 0 01/23/2022 The thought [...] on file documented as of this encounter Functional Status Functional Status Response [...] as of this encounter Progress Notes * Meagan Phelps DO - 12/05/2023 12:18 PM EDT Bri presented today at 34w3d for an ultrasound for the following indications: Systemic lupus complicating (HCC) Ulcerative colitis without complications, unspecified location (HCC) Antepartum multigravida of advanced maternal age Autoimmune hepatitis (HCC) Ultrasound for screening for growth restriction 34 weeks gestation of Ultrasound summary: Patient presented at 34w 3d for growth assessment. Normal growth with EFW 2801 g at 84%ile. Normal GENEVA at 7 cm. Cephalic presentation. I reviewed the ultrasound images. Bri was given the opportunity to meet with me if she had any questions. Please refer to the ultrasound report for additional details about today's ultrasound examination. RECOMMENDATIONS: Recommend follow up ultrasound with MFM in 4 weeks for growth secondary to above indications. Weekly NSTs at 32 weeks. See prior formal MFM consultation note. Thank you for allowing us to participate in the care of this patient. Please call with any questions. Meagan Phelps DO 12/05/2023 12:18 PM documented in this encounter Plan of Treatment Upcoming Encounters Date Type Department Care Team (Late st Contact Info) Description 12/11/2023 9:15 AM EDT Office Visit Gynecology/Obstetrics Richy Carrion [address] [place] [address] Siobhan Purcell CRNP [address] [place] [address] Nakia Carrion Stress Tests Becca [address] [place] [address] 12/12/2023 8:40 AM EDT Office Visit Rheumatology [facility] [address] [facility] [place], [place] [address] Gildardo Johnson MD [address] [place] [address] 12/18/2023 9:00 AM EDT Office Visit Gynecology/Obstetrics, [place] [address] [place] [address] Leola Elizondo PA-C [address] [place] [address] Vanessa Non Stress Test [address] [place] [address] 12/25/2023 9:00 AM EDT Office Visit Gynecology/Obstetrics Richy Carrion [address] [place] [address] Siobhan Purcell CRNP [address] [place] [address] Murali, Non Stress Tests Becca [address] [place] [address] 01/01/2024 9:00 AM EDT Office Visit Gynecology/Obstetrics Richy Carrion [address] [place] [address] Siobhan Purcell CRNP [address] [place] [address] Carrion, Non Stress Tests Becca [address] [place] [address] 01/02/2024 8:45 AM EDT Imaging Maternal Medicine Imaging, Becca Carrion [address] [place] [address] [place] [address] 01/08/2024 9:00 AM EDT Office Visit Gynecology/Obstetrics Richy Carrion [address] [place] [address] Siobhan Purcell CRNP [address] [place] [address] Mruali, Non Stress Tests Becca [address] [place] [address] Scheduled Procedures Name Priority Associated Diagnoses Date/Ti [...] 01/21/2023, 0 01/21/2023, 11/30/2021, Additional history exists COLONOSCOPY-EVERY 3 YRS AGES 18-100 01/22/2026 01/22/2023, 01/22/2023 PAP SMEAR-EVERY 5 YRS,AGES 21-100 06/10/2028 06/10/2023, 05/12/2020, 05/29/2019 DTaP,Tdap,and Td Vaccines (3 - Td or [...] as of this encounter Visit Diagnoses Diagnosis Systemic lupus complicating (HCC)- Primary Other current maternal conditions classifiable elsewhere, complicating , childbirth, or the puerperium, unspecified as to episode of care Ulcerative colitis without complications, unspecified location (HCC) Antepartum multigravida of advanced maternal age Autoimmune hepatitis (HCC) Autoimmune hepatitis Ultrasound for screening for growth restriction screening for growth retardation using ultrasonics 34 weeks gestation of state, incidental documented in this encounter Advance Directives Latest Code Status on File Code Status Date Activated Date Inactivated Comments Full Code 05/14/2019 10:55 PM 05/19/2019 6:46 PM This order reflects the patients wishes and were consensually agreed upon. Question Answer Comments Discussion of Advance Directives occurred with: Patient Care Teams Farm Management Teacher Relationship Specialty Start Date End Date Eliseo Palmer MD [address] [facility] [place] [address] PCP - General Family Medicine 05/19/19 documented as of this encounter
--- OUTSIDE RECORDS SUMMARY | 2024-01-11 07:38 | External Medical Summary | Summary of Care ---
Author Name Unknown Organization [facility] Address [address] [place] [address] Phone [phone] Care Team Providers Care Executive Creative Director Name Role Phone Eliseo Palmer MD Primary Care Provider + Reason for Visit * Reason Comments Rheum Follow Up Follow up - lupus Encounter Details Date Type Department Care Team (Latest Contact Info) Description 12/12/2023 8:40 AM EDT Office Visit Rheumatology [place] [address] [employer] [place] [address] Gildardo Johnson MD [facility] [employer] [place] [address] Other forms of systemic lupus erythematosus, unspecified organ involvement status (HCC)*; Autoimmune hepatitis (HCC); Raynaud's disease without gangrene; Long-term use of immunosuppressant medication Allergies No known active allergiesdocumented as of this encounter (statuses as of 12/12/2023) Medications Medication Sig Dispensed Refills Start Date End Date Status Vitamins 28-0.8 MG Oral Tablet TAKE 1 TABLET BY MOUTH EVERY DAY AT 8 AM 0 09/25/2021 Active Mesalamine 1.2 GM Oral Tablet Delayed Release (Lialda) Take 2 Tablets (2,400 mg) by mouth in the morning. 1 daily. 180 Tablet 1 06/18/2022 Active Hydroxychloroqui ne Sulfate 200 MG Oral Tablet (Plaquenil) TAKE 1 TABLET BY MOUTH EVERY DAY 90 Tablet 1 11/29/2022 Active Aspirin 81 MG Oral Tablet Chewable (Aspirin 81) Take 1 Tablet by mouth in the morning. 0 Active Iron-Vitamin C 65-125 MG Oral Tablet (Vitron C) Take 1 Tablet by mouth in the morning and 1 Tablet before bedtime. 60 Tablet 3 10/25/2023 Active Glucagon Emergency 1 MG Injection Kit INJECT INTO A LARGE MUSCLE 1MG ONCE FOR 1 DOSE. TAKE NEEDED FOR SEVERE HYPOGLYCEMIA 0 11/28/2021 4 Discontinue d(Medicatio n List Clean Up) documented as of this encounter (statuses as of 12/12/2023) Active Problems Problem Noted Date Diagnosed Date [...] hepatitis 03/23/2021 Overview: I reviewed records from product tester fiberglass in 2019. Patient had workup for jaundice and elevated LFT's. Liver biopsy findings were consistent with autoimmune hepatitis. Patient treated with Azathioprine and prednisone taper at the time. Follows routinely with Hepatology. Recent LFTs normal. [facility] recommends monitoring LFTs in . Latest [...] 05/12/2020 Overview: Diagnosed 2004; currently follows with [facility] Rheumatology. She reports stable disease on Plaquenil [...] an increase in malformations or morbidity. The [place] [employer] Pediatrics classifies the drug as [...] with temporary GI tube (~2010). [facility] Stable on Mesalamine; denies recent flares. [...] as of this encounter (statuses as of 12/12/2023) Resolved Problems Problem Noted Date Diagnosed Date [...] as of this encounter (statuses as of 12/12/2023) Immunizations Name Administration Dates Next Due Seasonal Influenza Virus Vac cine, Unspecified Formulation 08/26/2018 Seasonal Influenza, PF, 6 M & above, IM , (FluLaval or Fluzone) 05/18/2023,04/19/2021,05/12/2020 Seasonal Influenza, Quadriva lent, No Preserve, Mdck 08/20/2018 TDAP (age 10 and older)(Boostrix) 10/24/2023, documented as of this encounter Social History Tobacco Use Types Packs/Day Years Used Date Smoking Tobacco: Never Smokeless Tobacco: Never Tobacco Cessation:Counseling Given: Not Answered Alcohol Use Standard Drinks/Week Comments Not Currently [...] money to get more. Never true 12/09/2022 Sultana Depression Scale Answer Date Recorded Sultana Depression Scale Total 0 01/23/2022 The thought [...] Sign Reading Time Taken Comments Blood Pressure - - Pulse - - Temperature 36 C (96.8 F) 12/12/2023 8:31 AM EDT Respiratory Rate - - Oxygen Saturation - - Inhaled Oxygen Concentration - - Weight 78 kg (172 lb) 12/12/2023 8:31 AM EDT Height - - Body Mass Index 31.46 12/11/2023 9:09 AM EDT documented in this [...] as of this encounter Progress Notes * Gildardo Johnson MD - 12/12/2023 8:35 AM EDT Subjective: Patient seen today for further follow up evaluation of SLE, autoimmune hepatitis. Since the last visit she is in her 3rd trimester and is due in January. The has been good - no issues - has anemia like she did with first . She has no concerns for flare-up of her lupus. She has been feeling good. Remains on Plaquenil. Is due for an eye exam soon. Musculoskeletal ROS: . Normal Other ROS: . Constitutional: normal . Head normal . Eyes: normal . Ears, nose, throat, mouth: normal . Cardiovascular: normal . Respiratory: normal . Gastrointestinal: normal . Genitourinary: normal . Skin: normal All other ROS reviewed and negative Social History: Social History Tobacco Use Smoking status: Never Smokeless tobacco: Never Substance Use Topics Alcohol use: Not Currently Alcohol/week: 5.0 standard drinks of alcohol Types: 5 12 oz of beer per week Comment: Denies in Vaping/E-Cigarette Use Vaping/E-Cigarette Use Never User Vaping/E-Cigarette Substances Vaping/E-Cigarette Devices working Current Outpatient Medications Medication Sig Dispense Refill Vitamins 28-0.8 MG Oral Tablet TAKE 1 TABLET BY MOUTH EVERY DAY AT 8 AM Mesalamine 1.2 GM Oral Tablet Delayed Release (Lialda) Take 2 Tablets (2,400 mg) by mouth in the morning. 1 daily. 180 Tablet 1 Hydroxychloroquine Sulfate 200 MG Oral Tablet (Plaquenil) TAKE 1 TABLET BY MOUTH EVERY DAY 90 Tablet 1 Aspirin 81 MG Oral Tablet Chewable (Aspirin 81) Take 1 Tablet by mouth in the morning. Iron-Vitamin C 65-125 MG Oral Tablet (Vitron C) Take 1 Tablet by mouth in the morning and 1 Tablet before bedtime. 60 Tablet 3 No current facility-administered medications for this visit. Physical Exam: Temp 36 C (96.8 F) (Infrared ) | Wt 78 kg (172 lb) | LMP 04/08/2023 (Within Days) | BMI 31.46 kg/m | BSA 1.85 m General: alert, healthy, no distress, and well nourished HENT: normocephalic, external ears normal, no mucosal erythema, no mucosal edema, moist mucosa, no oral ulcers Eye Exam: PERRL, EOMI, conjunctiva are pink and non-injected, sclera clear Neck: supple, no adenopathy, thyroid normal size, non-tender, without nodularity Lymph: no palpable lymphadenopathy Heart: regular rate & rhythm, no murmur, and no gallops Lungs: clear to auscultation , no rales, wheezes or rhonchi Abdomen: abdomen soft, normal bowel sounds, and noted Musculoskeletal Exam: . Normal Assessment: M32.8 Other forms of systemic lupus erythematosus, unspecified organ involvement status (HCC) (primary encounter diagnosis) K75.4 Autoimmune hepatitis (HCC) I73.00 Raynaud's disease without gangrene Z79.60 Long-term use of immunosuppressant medication She is doing well with no concerns flare of her lupus during . Plan: 1. Continue Plaquenil 2. Continue with Plaquenil toxicity eye screens 3. Contact with any flares post delivery 4. Return to clinic in 1 year Gildardo Johnson MD Department of Rheumatology documented in this encounter Nursing Notes * Bee Gonzalez LPN - 12/12/2023 8:30 AM EDT Chief Complaint Patient presents with Rheum Follow Up Follow up - lupus documented in this encounter Plan of Treatment Upcoming Encounters Date Type Department Care Team (Late st Contact Info) Description 12/18/2023 9:00 AM EDT Office Visit Gynecology/Obstetrics, [place] [address] [place] [address] Leola Elizondo PA-C [address] [place] [address] Nakia Mendez Stress Test [address] [place] [address] 12/25/2023 9:00 AM EDT Office Visit Gynecology/Obstetrics Richy Carrion [address] [place] [address] Siobhan Purcell CRNP [address] [place] [address] Nakia Carrion Stress Tests [place] [address] [place] [address] 01/01/2024 9:00 AM EDT Office Visit Gynecology/Obstetrics Richy Carrion [address] [place] [address] Siobhan Purcell CRNP [address] [place] [address] Murali, Non Stress Tests [place] [address] [place] [address] 01/02/2024 8:45 AM EDT Imaging Maternal Medicine Imaging, [place] [address] [place] [phone] 01/08/2024 9:00 AM EDT Office Visit Gynecology/Obstetrics Richy Carrion [address] [place] [address] Siobhan Purcell CRNP [address] [place] [address] Murali Non Stress Tests [place] [address] 12/30/2024 8:40 AM EDT Office Visit Rheumatology [place] [address] [facility] [place] [address] Gildardo Johnson MD [facility] [place] [address] Scheduled Procedures Name Priority Associated Diagnoses Date/Ti [...] as of this encounter Visit Diagnoses Diagnosis Other forms of systemic lupus erythematosus, unspecified organ involvement status (HCC)- Primary Autoimmune hepatitis (HCC) Autoimmune hepatitis Raynaud's disease without gangrene Long-term use of immunosuppressant medication Encounter for long-term (current) use of other medications documented in this encounter Advance Directives Latest Code Status on File Code Status Date Activated Date Inactivated Comments Full Code 05/14/2019 10:55 PM 05/19/2019 6:46 PM This order reflects the patients wishes and were consensually agreed upon. Question Answer Comments Discussion of Advance Directives occurred with: Patient Care Teams Executive Creative Director Relationship Specialty Start Date End Date Eliseo Palmer MD [address] [place] [address] PCP - General Family Medicine 05/19/19 documented as of this encounter"
--- OUTSIDE RECORDS SUMMARY | 2024-01-11 07:38 | External Medical Summary | Summary of Care ---
Author Name Unknown Organization [facility] Address [address] [place] [address] Phone [phone] Care Team Providers Care Inward Toll Operator Name Role Phone Eliseo Palmer MD Primary Care Provider + Encounter Details Date Type Department Care Team (Late st Contact Info) Description 01/02/2024 8:45 AM EDT Office Visit Ecommerce Project Manager Obstetrics Maternal Medicine, [address] [address] Meagan Phelps, DO [address] [place] [address] Systemic lupus complicating (HCC)*; Antepartum multigravida of advanced maternal age; Ultrasound for screening for growth restriction; 38 weeks gestation of Allergies No known active allergiesdocumented as of this encounter (statuses as of 01/02/2024) Medications Medication Sig Dispensed Refills Start Date End Date Status Vitamins 28-0.8 MG Oral Tablet TAKE 1 TABLET BY MOUTH EVERY DAY AT 8 AM 09/25/2021 Active Mesalamine 1.2 GM Oral Tablet Delayed Release (Lialda) Take 2 Tablets (2,400 mg) by mouth in the morning. 1 daily. 180 Tablet 1 06/18/2022 Active Hydroxychloroquine Sulfate 200 MG Oral Tablet (Plaquenil) TAKE 1 TABLET BY MOUTH EVERY DAY 90 Tablet 1 11/29/2022 Active Aspirin 81 MG Oral Tablet Chewable (Aspirin 81) Take 1 Tablet by mouth in the morning. Active Iron-Vitamin C 65-125 MG Oral Tablet (Vitron C) Take 1 Tablet by mouth in the morning and 1 Tablet before bedtime. 60 Tablet 3 10/25/2023 Active documented as of this encounter (statuses as of 01/02/2024) Active Problems Problem Noted Date Diagnosed Date [...] hepatitis 03/23/2021 Overview: I reviewed records from fire sprinkler installer in 2019. Patient had workup for jaundice and elevated LFT's. Liver biopsy findings were consistent with autoimmune hepatitis. Patient treated with Azathioprine and prednisone taper at the time. Follows routinely with Hepatology. Recent LFTs normal. [facility] recommends monitoring LFTs in . Latest [...] 05/12/2020 Overview: Diagnosed 2004; currently follows with [facility] Rheumatology. She reports stable disease on Plaquenil [...] an increase in malformations or morbidity. The [place] Academy of Pediatrics classifies the drug as [...] with temporary GI tube (~2010). Follows with [facility]. Stable on Mesalamine; denies recent flares. Had [...] as of this encounter (statuses as of 01/02/2024) Resolved Problems Problem Noted Date Diagnosed Date [...] as of this encounter (statuses as of 01/02/2024) Immunizations Name Administration Dates Next Due Seasonal [...] money to buy more. Never true 12/10/19 Within the past 12 months, t he food you bought just didn't last and you didn't have money to get more. Never true 12/09/2022 [place] Depression Scale Answer Date Recorded [place] Depression Scale Total 0 01/23/2022 The thought [...] Progress Notes * Meagan Phelps DO - 01/02/2024 10:27 AM EDT Bri presented today at 38w3d for an ultrasound for the following indications: Systemic lupus complicating (HCC) Antepartum multigravida of advanced maternal age Ultrasound for screening for growth restriction 38 weeks gestation of Ultrasound summary: Patient presented at 38w 3d for growth assessment. Normal growth with EFW 3601 g at 74%ile. Normal GENEVA at 8.1 cm. Cephalic presentation. I reviewed the ultrasound images. Bri was given the opportunity to meet with me if she had any questions. Please refer to the ultrasound report for additional details about today's ultrasound examination. RECOMMENDATIONS: Recommend follow up ultrasound with MFM in 4-6 weeks for growth secondary to above indications. See prior formal MFM consultation note. Thank you for allowing us to participate in the care of this patient. Please call with any questions. Meagan Phelsp DO 01/02/2024 10:27 AM documented in this encounter Plan of Treatment Upcoming Encounters Date Type Department Care Team (Late st Contact Info) Description 01/08/2024 9:00 AM EDT Office Visit Gynecology/Obstetrics Richy Carrion [address] [place] [address] Siobhan Purcell CRNP [address] [place] [address] Nakia Carrion Stress Tests [place] [address] [place] [address] 12/30/2024 8:40 AM EDT Office Visit Rheumatology [address] [place] [address] Gildardo Johnson MD [address] [email or web address] [address] Scheduled Procedures Name Priority Associated Diagnoses Date/Ti me COLONOSCOPY FLEXIBLE PROXIMA L DIAGNOSTIC Recall Ulcerative colitis (HCC) Health Maintenance Due Date Last Done Comments Pneumococcal Vaccine: Pediatrics (0 to 5 Years) and At-Risk Patients (6 to 64 Years) (1 of 2 - PCV) 1994 COVID-19 Vaccine (1 - 2022-24 season) 2023 Depression Screening 10/23/2024 [...] puerperium, unspecified as to episode of care Antepartum multigravida of advanced maternal age Ultrasound for screening for growth restriction screening for growth retardation using ultrasonics 38 weeks gestation of state, incidental documented in this encounter Advance Directives * Full Code (Latest Code Status on File) Date Activated Date Inactivated Comments 05/14/2019 10:55 PM 05/19/2019 6:46 PM This order reflects the patients wishes and were consensually agreed upon. Question Answer Comments Discussion of Advance Directives occurred with: Patient Care Teams Inward Toll Operator Relationship Specialty Start Date End Date Eliseo Palmer MD [address] [place] [address] PCP - General Family Medicine 05/19/19 documented as of this encounter
--- OUTSIDE RECORDS SUMMARY | 2024-01-11 07:38 | External Medical Summary ---
Author Name Unknown Address Unknown Organization K01:[facility] [place] [address] [place] [address] Laboratory Report Ordering Provider Test Date Status PEPE CANSECO 12/18/2023 09:42:38 Final Observation Date Value Abnormality Reference (Units ) Status Streptococcus agalactiae DNA [Presence] in Specimen by SHASTA with probe detection 12/18/2023 09:42:38 Negative Negative Final No Group B Streptococcus det ected by culture-enhanced PCR (amplified probe).
The collection of vaginal/rectal swab specimen combinations (FDA approved specimen type) is optimal for the detection of Group B Streptococcus. Single source collection (vaginal only or rectal only) or alternate specimen sources may lead to false negative results. Performing Location [facility] [place] [address] [place] [address]
--- OUTSIDE RECORDS SUMMARY | 2024-01-11 07:38 | External Medical Summary | Summary of Care ---
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 Patient had workup for jaundice and elevated LFT's. Liver biopsy findings were consistent with autoimmune hepatitis. Patient treated with Azathioprine and prednisone taper at the time. Follows routinely with Hepatology. Recent LFTs normal. [facility] recommends monitoring LFTs in . Latest [...] 05/12/2020 Overview: Diagnosed 2004; currently follows with [facility] Rheumatology. She reports stable disease on Plaquenil [...] an increase in malformations or morbidity. The [place] Academy [employer] Pediatrics classifies the drug as [...] with temporary GI tube (~2010). [email or web address]. Stable on Mesalamine; denies recent flares. [...] money to get more. Never true 12/09/2022 [place] Depression Scale Answer Date Recorded [place] Depression Scale Total 0 01/23/2022 The thought [...] Gynecology/Obstetrics Richy Carrion [address] [place] [address] Siobhan Purcell CRNP [address] [place] [address] Nakia Carrion Stress Tests [place]cca [address] [place] [address] 12/12/2023 8:40 AM EDT Office Visit Rheumatology [facility] [address] [facility] [place], [place] [address] Gildardo Johnson MD [address] [place] [address] 12/18/2023 9:00 AM EDT Office Visit Gynecology/Obstetrics, [place] [address] [place] [address] Leola Elizondo PA-C [address] [place] [address] Vanessa Non Stress Test [address] [place] [address] 12/25/2023 9:00 AM EDT Office Visit Gynecology/Obstetrics Richy Carrion [address] [place] [address] Siobhan Purcell CRNP [address] [place] [address] Murali, Non Stress Tests [place] [address] [place] [address] 01/01/2024 9:00 AM EDT Office Visit Gynecology/Obstetrics Richy Carrion [address] [place] [address] Siobhan Purcell CRNP [address] [place] [address] Carrion, Non Stress Tests [place] [address] [place] [address] 01/02/2024 8:45 AM EDT Imaging Maternal Medicine Imaging, [place]cca Carrion [address] [place] [address] 01/08/2024 9:00 AM EDT Office Visit Gynecology/Obstetrics Richy Carrion [address] [place] [address] Siobhan Purcell CRNP [address] [place] [address] Murali, Non Stress Tests [place] [address] [place] [address] Scheduled Procedures Name Priority Associated Diagnoses Date/Ti [...] Advance Directives occurred with: Patient Care Teams Trim Attacher Relationship Specialty Start Date End Date Eliseo Palmer MD [address] [facility] [place] [address] PCP - General Family Medicine 05/19/19 documented as of this encounter
--- OUTSIDE RECORDS SUMMARY | 2024-01-11 07:38 | External Medical Summary | Summary of Care ---
Author Name Unknown Organization [facility] Address [address] [place] [address] Phone [phone] Care Team Providers Care Corporate Legal Assistant Name Role Phone Eliseo Palmer MD Primary Care Provider + Reason for Visit * Reason Comments Return Visit Encounter Details Date Type Department Care Team (Late st Contact Info) Description 12/25/2023 9:00 AM EDT Office Visit Gynecology/Obstetric s Joey'andrey Carrion [address] [place] [address] Siobhan Purcell CRNP [address] [place] [address] Murali Non Stress Tests [place]cca [address] [place] [address] High-risk in third trimester*; Ulcerative pancolitis without complication (HCC); Systemic lupus complicating (HCC); Autoimmune hepatitis (HCC); Antepartum multigravida of advanced maternal age; History of gestational diabetes in prior , currently ; H/O migraine during ; Antepartum anemia complicating Allergies No known active allergiesdocumented as of this encounter (statuses as of 12/25/2023) Medications Medication Sig Dispensed Refills Start Date [...] as of this encounter (statuses as of 12/25/2023) Active Problems Problem Noted Date Diagnosed Date [...] hepatitis 03/23/2021 Overview: I reviewed records from communication analyst in 2019. Patient had workup for jaundice and elevated LFT's. Liver biopsy findings were consistent with autoimmune hepatitis. Patient treated with Azathioprine and prednisone taper at the time. Follows routinely with Hepatology. Recent LFTs normal. [facility] recommends monitoring LFTs in . Latest [...] 05/12/2020 Overview: Diagnosed 2004; currently follows with [facility] Rheumatology. She reports stable disease on Plaquenil [...] an increase in malformations or morbidity. The [place] Academy of Pediatrics classifies the drug as [...] as of this encounter (statuses as of 12/25/2023) Resolved Problems Problem Noted Date Diagnosed Date [...] as of this encounter (statuses as of 12/25/2023) Immunizations Name Administration Dates Next Due Seasonal [...] money to get more. Never true 12/09/2022 [place] Depression Scale Answer Date Recorded [place] Depression Scale Total 0 01/23/2022 The thought [...] Sign Reading Time Taken Comments Blood Pressure 110/60 12/25/2023 9:06 AM EDT Pulse - - Temperature - - Respiratory Rate - - Oxygen Saturation - - Inhaled Oxygen Concentration - - Weight 78.9 kg (174 lb) 12/25/2023 9:06 AM EDT Height 157.5 cm (5' 2") 12/25/2023 9:06 AM EDT Body Mass Index 31.83 12/25/2023 9:06 AM EDT documented in this encounter Functional [...] Progress Notes * Siobhan Purcell CRNP - 12/25/2023 8:50 AM EDT 37w2d No concerns. Baby is active. No contractions, bleeding, LOF. IOL scheduled for 01/09. ASSESSMENT assessment with Non-stress Test completed on 12/25/2023 at 37.2weeks gestation for indication of lupus heart baseline: 130 bpm Variability: Moderate Decelerations: absent Accelerations: present Contractions: None NST start time: 0858 NST stop time: 0921 NST strip reviewed, interpreted, and approved by OB provider, RACHID Esquivel . NST strip stored in clinic storage file documented in this encounter Plan of Treatment Upcoming Encounters Date Type Department Care Team (Late st Contact Info) Description 01/01/2024 9:00 AM EDT Office Visit Gynecology/Obstetrics [address] [place] [address] Siobhan Purcell CRNP [address] [place] [address] Murali, Non Stress Tests [place] [address] [place] [address] 01/02/2024 8:45 AM EDT Imaging Maternal Medicine Imaging, [place] [address] [place] [id number] 01/08/2024 9:00 AM EDT Office Visit Gynecology/Obstetrics Richy Carrion [address] [place] [address] Siobhan Purcell CRNP [address] [place] [address] Murali Non Stress Tests [place] [address] [place] [address] 12/30/2024 8:40 AM EDT Office Visit Rheumatology [address] [place], [place] [address] Gildardo Johnson MD [facility] [place], [place] [address] Scheduled Procedures Name Priority Associated Diagnoses Date/Ti [...] Diagnosis High-risk in third trimester- Primary Ulcerative pancolitis without complication (HCC) Systemic lupus complicating (HCC) Other current [...] Advance Directives occurred with: Patient Care Teams Corporate Legal Assistant Relationship Specialty Start Date End Date Eliseo Palmer MD [address] [facility] [place] [address] PCP - General Family Medicine 05/19/19 documented as of this encounter
--- OUTSIDE RECORDS SUMMARY | 2024-01-11 07:38 | External Medical Summary | Summary of Care ---
Author Name Unknown Organization [facility] Address [address] [place] [address] Phone [phone] Care Team Providers Care Lead Nuclear Medicine Technologist Name Role Phone Eliseo Palmer MD Primary Care Provider + Reason for Visit * Reason Comments Return Visit Encounter Details Date Type Department Care Team (Late st Contact Info) Description 01/08/2024 9:00 AM EDT Office Visit Gynecology/Obstetric s Joey'andrey Carrion [address] [place] [address] Siobhan Purcell CRNP [address] [place] [address] Murali Non Stress Tests [place] [address] [place] [address] High-risk in third trimester*; Systemic lupus complicating (HCC); Autoimmune hepatitis (HCC); Antepartum multigravida of advanced maternal age; History of gestational diabetes in prior , currently ; H/O migraine during ; Antepartum anemia complicating Allergies No known active allergiesdocumented as of this encounter (statuses as of 01/08/2024) Medications Medication Sig Dispensed Refills Start Date [...] as of this encounter (statuses as of 01/08/2024) Active Problems Problem Noted Date Diagnosed Date [...] hepatitis 03/23/2021 Overview: I reviewed records from admissions assistant in 2019. Patient had workup for jaundice and elevated LFT's. Liver biopsy findings were consistent with autoimmune hepatitis. Patient treated with Azathioprine and prednisone taper at the time. Follows routinely with Hepatology. Recent LFTs normal. [facility] recommends monitoring LFTs in . Latest [...] 05/12/2020 Overview: Diagnosed 2004; currently follows with [facility]. She reports stable disease on Plaquenil [...] an increase in malformations or morbidity. The [place] Academy of Pediatrics classifies the drug as [...] Recommend screening for presence of SSA/SSB antibodies. M will order this and relay results to [...] as of this encounter (statuses as of 01/08/2024) Resolved Problems Problem Noted Date Diagnosed Date [...] as of this encounter (statuses as of 01/08/2024) Immunizations Name Administration Dates Next Due Seasonal [...] money to get more. Never true 12/09/2022 [place] Depression Scale Answer Date Recorded [place] Depression Scale Total 0 01/23/2022 The thought [...] Pressure - - Pulse - - Temperature - - Respiratory Rate - - Oxygen Saturation - - Inhaled Oxygen Concentration - - Weight 80.7 kg (178 lb) 01/08/2024 9:05 AM EDT Height 157.5 cm (5' 2") 01/08/2024 9:05 AM EDT Body Mass Index 32.56 01/08/2024 9:05 AM EDT documented in this encounter Functional [...] Progress Notes * Siobhan Purcell CRNP - 01/08/2024 9:18 AM EDT 39w2d No concerns. Baby is active. No contractions, no bleeding or LOF. IOL in 2 days. ASSESSMENT assessment with Non-stress Test completed on 01/08/2024 at 39.2weeks gestation for indication of lupus heart baseline: 140 bpm Variability: Moderate Decelerations: absent Accelerations: present Contractions: None NST start time: 0858 NST stop time: 0928 NST strip reviewed, interpreted, and approved by OB providerSiobhan CRNP . NST strip stored in clinic storage file documented in this encounter Plan of Treatment Upcoming Encounters Date Type Department Care Team (Late st Contact Info) Description 12/30/2024 8:40 AM EDT Office Visit Rheumatology [place] [id number] [place] [address] Gildardo Johnson MD [address] [place] [address] Scheduled Procedures Name Priority Associated Diagnoses Date/Ti [...] Diagnoses Diagnosis High-risk in third trimester- Primary Systemic lupus complicating (HCC) Other current [...] antepartum documented in this encounter Advance Directives * Full Code (Latest Code Status on File) Date Activated Date Inactivated Comments 05/14/2019 10:55 PM 05/19/2019 6:46 PM This order reflects the patients wishes and were consensually agreed upon. Question Answer Comments Discussion of Advance Directives occurred with: Patient Care Teams Lead Nuclear Medicine Technologist Relationship Specialty Start Date End Date Eliseo Palmer MD [address] [place] [address] PCP - General Family Medicine 05/19/19 documented as of this encounter
--- OUTSIDE RECORDS SUMMARY | 2024-01-11 07:38 | External Medical Summary | Summary of Care ---
Author Name Unknown Organization [facility] Address [address] [place] [address] Phone [phone] Care Team Providers Care Internet Sales Director Name Role Phone Eliseo Palmer MD Primary Care Provider + Encounter Details Date Type Department Care Team (Late st Contact Info) Description 01/02/2024 8:45 AM EDT Office Visit Radiator Repairer Obstetrics Maternal Medicine, [address] [address] Meagan Phelps, DO [address] [place] [address] Systemic lupus complicating (HCC)*; Antepartum [...] hepatitis 03/23/2021 Overview: I reviewed records from sap business objects developer in 2019. Patient had workup for jaundice and elevated LFT's. Liver biopsy findings were consistent with autoimmune hepatitis. Patient treated with Azathioprine and prednisone taper at the time. Follows routinely with Hepatology. Recent LFTs normal. [facility] recommends monitoring LFTs in . Latest [...] 05/12/2020 Overview: Diagnosed 2004; currently follows with [facility] Rheumatology. She reports stable disease on Plaquenil [...] an increase in malformations or morbidity. The [place] Academy of Pediatrics classifies the drug as [...] with temporary GI tube (~2010). Follows with [facility]. Stable on Mesalamine; denies recent flares. Had [...] money to get more. Never true 12/09/2022 [place] Depression Scale Answer Date Recorded [place] Depression Scale Total 0 01/23/2022 The thought [...] call with any questions. Meagan Phelps DO 01/02/2024 10:27 AM documented in this encounter Plan of Treatment Upcoming Encounters Date Type Department Care Team (Late st Contact Info) Description 01/08/2024 9:00 AM EDT Office Visit Gynecology/Obstetrics Richy Carrion [address] [place] [address] Siobhan Purcell CRNP [address] [place] [address] Nakia Carrion Stress Tests [place] [address] [place] [address] 12/30/2024 8:40 AM EDT Office Visit Rheumatology [address] [place] [address] Gildardo Johnson MD [address] [place] [address] Scheduled Procedures Name Priority Associated Diagnoses Date/Ti [...] Advance Directives occurred with: Patient Care Teams Internet Sales Director Relationship Specialty Start Date End Date Eliseo Palmer MD [address] [place] [address] PCP - General Family Medicine 05/19/19 documented as of this encounter
--- OUTSIDE RECORDS SUMMARY | 2024-01-11 07:38 | External Medical Summary | Summary of Care ---
Author Name Unknown Organization [facility] Address [address] [place] [address] Phone [phone] Care Team Providers Care Overhead Crane Operator Name Role Phone Eliseo Palmer MD Primary Care Provider + Reason for Visit * Reason Comments Non Stress Test lupus Return Visit 38w2d Encounter Details Date Type Department Care Team (Late st Contact Info) Description 01/01/2024 9:00 AM EDT Office Visit Gynecology/Obstetric s [facility] [address] [place] [address] Siobhan Purcell CRNP [address] [place] [address] [place], Non Stress Tests Becca [address] [place] [address] High-risk in third trimester*; Ulcerative colitis without complications, unspecified location (HCC); Systemic lupus complicating (HCC); Autoimmune hepatitis (HCC); Antepartum multigravida of advanced maternal age; History of gestational diabetes in prior , currently ; H/O migraine during ; Antepartum anemia complicating Allergies No known active allergiesdocumented as of this encounter (statuses as of 01/01/2024) Medications Medication Sig Dispensed Refills Start Date [...] as of this encounter (statuses as of 01/01/2024) Active Problems Problem Noted Date Diagnosed Date [...] hepatitis 03/23/2021 Overview: 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 Patient had workup for jaundice and elevated LFT's. Liver biopsy findings were consistent with autoimmune hepatitis. Patient treated with Azathioprine and prednisone taper at the time. Follows routinely with Hepatology. Recent LFTs normal. [facility] recommends monitoring LFTs in . Latest [...] 05/12/2020 Overview: Diagnosed 2004; currently follows with [facility] Rheumatology. She reports stable disease on [...] an increase in malformations or morbidity. The [place] [employer] classifies the drug as [...] as of this encounter (statuses as of 01/01/2024) Resolved Problems Problem Noted Date Diagnosed Date [...] as of this encounter (statuses as of 01/01/2024) Immunizations Name Administration Dates Next Due Seasonal [...] money to get more. Never true 12/09/2022 [place] Depression Scale Answer Date Recorded [place] Depression Scale Total 0 01/23/2022 The thought [...] Sign Reading Time Taken Comments Blood Pressure 94/58 01/01/2024 9:11 AM EDT Pulse - - Temperature - - Respiratory Rate - - Oxygen Saturation - - Inhaled Oxygen Concentration - - Weight 80.4 kg (177 lb 3.2 oz) 01/01/2024 9:11 A M EDT Height 157.5 cm (5' 2") 01/01/2024 9:11 AM EDT Body Mass Index 32.41 01/01/2024 9:11 AM EDT documented in this encounter Functional [...] Progress Notes * Siobhan Purcell CRNP - 01/01/2024 9:50 AM EDT 38w2d No concerns. Baby is active. No contractions, bleeding, LOF. Has MFM appt tomorrow, IOL 01/09. ASSESSMENT assessment with Non-stress Test completed on 01/01/2024 at 38.2weeks gestation for indication of lupus heart baseline: 130 bpm Variability: Moderate Decelerations: absent Accelerations: present Contractions: None NST start time: 0903 NST stop time: 09 NST strip reviewed, interpreted, and approved by OB Siobhan garza CRNP . NST strip stored in clinic storage file documented in this encounter Nursing Notes * Linh Ford LPN - 01/01/2024 9:12 AM EDT Chief Complaint Patient presents with Non Stress Test lupus Return Visit 38w2d Pt is with no concerns. IOL scheduled for 01/10/2024 GBS neg Linh Ford LPN documented in this encounter Plan of Treatment Upcoming Encounters Date Type Department Care Team (Late st Contact Info) Description 01/02/2024 8:45 AM EDT Imaging Maternal Medicine Imaging, [facility] Carrion [address] [place] [address] 01/02/2024 8:45 AM EDT Office Visit Human Services Assistant Obstetrics Maternal Medicine, Becca Carrion [address] [place] [address] Meagan Phelps, DO [address] [place] [address] 01/08/2024 9:00 AM EDT Office Visit Gynecology/Obstetrics Joey'andrey Carrs [address] [place] [address] Siobhan Purcell CRNP [address] [place] [address] Murali Non Stress Tests Becca [address] [facility] [address] 12/30/2024 8:40 AM EDT Office Visit Rheumatology [place] [address] [place] [address] Gildardo Johnson MD [facility] [place] [address] Scheduled Procedures Name Priority Associated Diagnoses Date/Ti [...] Advance Directives occurred with: Patient Care Teams Overhead Crane Operator Relationship Specialty Start Date End Date Eliseo Palmer MD [address] [place] [address] PCP - General Family Medicine 05/19/19 documented as of this encounter
--- OUTSIDE RECORDS SUMMARY | 2024-01-11 07:39 | External Medical Summary | Summary of Care ---
Author Name Unknown Organization [facility] Address [address] [place] [address] Phone [phone] Care Team Providers Care Silk Opener Name Role Phone Eliseo Palmer MD Primary Care Provider + Reason for Visit * Reason Comments Non Stress Test Encounter Details Date Type Department Care Team (Late st Contact Info) Description 11/27/2023 9:00 AM EDT Office Visit Gynecology/Obstetric s [facility] [address] [facility] [place] [address] Siobhan Purcell CRNP [address] [place] [address] Murali Non Stress Tests Becca [address] [place] [address] Ulcerative pancolitis without complication (HCC)*; High-risk in third trimester; Systemic lupus complicating (HCC); Autoimmune hepatitis (HCC); Antepartum multigravida of advanced maternal age; History of gestational diabetes in prior , currently ; H/O migraine during ; Antepartum anemia complicating Allergies No known active allergiesdocumented as of this encounter (statuses as of 11/27/2023) Medications Medication Sig Dispensed Refills Start Date [...] as of this encounter (statuses as of 11/27/2023) Active Problems Problem Noted Date Diagnosed Date [...] hepatitis 03/23/2021 Overview: 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 Patient had workup for jaundice and elevated LFT's. Liver biopsy findings were consistent with autoimmune hepatitis. Patient treated with Azathioprine and prednisone taper at the time. Follows routinely with Hepatology. Recent LFTs normal. [facility] recommends monitoring LFTs in . [...] 05/12/2020 Overview: Diagnosed 2004; currently follows with [facility] Rheumatology. She reports stable disease on [...] an increase in malformations or morbidity. The [place] [employer] Pediatrics classifies the drug as [...] with temporary GI tube (~2010). Follows with [facility]. Stable on Mesalamine; denies recent flares. [...] as of this encounter (statuses as of 11/27/2023) Resolved Problems Problem Noted Date Diagnosed Date [...] as of this encounter (statuses as of 11/27/2023) Immunizations Name Administration Dates Next Due Seasonal [...] money to get more. Never true 12/09/2022 [place] Depression Scale Answer Date Recorded [place] Depression Scale Total 0 01/23/2022 The thought [...] Sign Reading Time Taken Comments Blood Pressure 102/60 11/27/2023 9:02 AM EDT Pulse - - Temperature - - Respiratory Rate - - Oxygen Saturation - - Inhaled Oxygen Concentration - - Weight 78.9 kg (174 lb) 11/27/2023 9:02 AM EDT Height 157.5 cm (5' 2") 11/27/2023 9:02 AM EDT Body Mass Index 31.83 11/27/2023 9:02 AM EDT documented in this encounter Functional [...] Progress Notes * Siobhan Purcell CRNP - 11/27/2023 9:50 AM EDT ASSESSMENT assessment with Non-stress Test completed on 11/27/2023 at 33.2weeks gestation for indication of lupus heart baseline: 130 bpm Variability: Moderate Decelerations: absent Accelerations: present Contractions: None NST start time: 0856 NST stop time: 0924 NST strip reviewed, interpreted, and approved by OB providerSiobhan CRNP . NST strip stored in clinic storage file documented in this encounter Plan of Treatment Upcoming Encounters Date Type Department Care Team (Late st Contact Info) Description 12/04/2023 9:15 AM EDT Office Visit Gynecology/Obstetrics [address] [place] [address] Siobhan Purcell CRNP [address] [place] [address] Murali Non Stress Tests [place] [address] 12/05/2023 8:00 AM EDT Imaging Maternal Medicine Imaging, Becca [address] [place] [phone] 12/11/2023 9:15 AM EDT Office Visit Gynecology/Obstetrics Richy Carrion [address] [place] [address] Siobhan Purcell CRNP [address] [place] [address] Murali Non Stress Tests Becca [place] [address] 12/12/2023 8:40 AM EDT Office Visit [address]umatology [address] [address] Gildardo Johnson MD [address] [place] [address], [place] [address] 12/18/2023 9:00 AM EDT Office Visit Gynecology/Obstetrics, [place] [address] [place] [address] Leola Elizondo PA-C [address] [place] [address] Vanessa Non Stress Test [address] [place] [address] 12/25/2023 9:00 AM EDT Office Visit Gynecology/Obstetrics Richy Carrion [address] [place] [address] Siobhan Purcell CRNP [address] [place] [address] Murali Non Stress Tests Becca [address] [place] [address] 01/01/2024 9:00 AM EDT Office Visit Gynecology/Obstetrics Richy Carrion [address] [place] [address] Siobhan Purcell CRNP [address] [place] [address] Murali Non Stress Tests Becca [address] [place] [address] 01/02/2024 8:45 AM EDT Imaging Maternal Medicine Imaging Becca [address] [place] [address] 01/08/2024 9:00 AM EDT Office Visit Gynecology/Obstetrics Richy Carrion [address] [place] [address] Siobhan Purcell CRNP [address] [place], [place] [address] Murali Non Stress Tests Becca [address] [place] [address] Scheduled Procedures Name Priority Associated Diagnoses Date/Ti [...] Diagnosis Ulcerative pancolitis without complication (HCC)- Primary High-risk in third trimester Systemic lupus complicating (HCC) Other current maternal [...] Advance Directives occurred with: Patient Care Teams Silk Opener Relationship Specialty Start Date End Date Eliseo Palmer MD [address] [place] [address] PCP - General Family Medicine 05/19/19 documented as of this encounter
--- OUTSIDE RECORDS SUMMARY | 2024-01-11 07:39 | External Medical Summary | Summary of Care ---
Author Name Unknown Organization [facility] Address [address] [place] [address] Phone [phone] Care Team Providers Care Assistant Professor Of Dietetics Name Role Phone Eliseo Palmer MD Primary Care Provider + Encounter Details Date Type Department Care Team (Late st Contact Info) Description 11/07/2023 8:00 AM EDT Office Visit Director Of Pulmonary Unit Obstetrics Maternal Medicine, [address] [address] Meagan Phelps, DO [address] [place] [address] Systemic lupus complicating (HCC)*; Antepartum multigravida of advanced maternal age; Ultrasound for screening for growth restriction; 30 weeks gestation of Allergies No known active allergiesdocumented as of this encounter (statuses as of 11/08/2023) Medications Medication Sig Dispensed Refills Start Date [...] as of this encounter (statuses as of 11/08/2023) Active Problems Problem Noted Date Diagnosed Date [...] hepatitis 03/23/2021 Overview: 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 Patient had workup for jaundice and elevated LFT's. Liver biopsy findings were consistent with autoimmune hepatitis. Patient treated with Azathioprine and prednisone taper at the time. Follows routinely with Hepatology. Recent LFTs normal. [facility] recommends monitoring LFTs in . Latest Reference [...] 05/12/2020 Overview: Diagnosed 2004; currently follows with [facility] Rheumatology. She reports stable disease on Plaquenil [...] an increase in malformations or morbidity. The [place] [employer] Pediatrics classifies the drug as [...] as of this encounter (statuses as of 11/08/2023) Resolved Problems Problem Noted Date Diagnosed Date [...] as of this encounter (statuses as of 11/08/2023) Immunizations Name Administration Dates Next Due Seasonal [...] money to get more. Never true 12/09/2022 [place] Depression Scale Answer Date Recorded [place] Depression Scale Total 0 01/23/2022 The thought [...] Progress Notes * Meagan Phelps DO - 11/08/2023 10:41 AM EDT Bri presented for an ultrasound for the following indications: Systemic lupus complicating (HCC) Antepartum multigravida of advanced maternal age Ultrasound for screening for growth restriction 30 weeks gestation of Ultrasound summary: Patient presented at 30w 3d for growth assessment. Normal growth with EFW 1801 g at 77%ile. Normal GENEVA at 12.9 cm. Cephalic presentation. I reviewed the ultrasound [...] call with any questions. Meagan Phelps DO 11/08/2023 10:41 AM documented in this encounter Plan of Treatment Upcoming Encounters Date Type Department Care Team (Late st Contact Info) Description 11/20/2023 9:00 AM EDT Office Visit Gynecology/Obstetrics Richy Carrion [address] [place] [address] Siobhan Purcell CRNP [address] [place] [address] Nakia Carrion Stress Tests Becca [address] [place] [address] 11/27/2023 9:00 AM EDT Office Visit Gynecology/Obstetrics Richy Carrion [address] [place] [address] Siobhan Purcell CRNP [address] [place] [address] Murali, Non Stress Tests Becca [address] [place] [address] 12/04/2023 9:15 AM EDT Office Visit Gynecology/Obstetrics Richy Carrion [address] [place] [address] Siobhan Purcell CRNP [address] [place] [address] Murali, Non Stress Tests Becca [address] [place] [address] 12/05/2023 8:00 AM EDT Imaging Maternal Medicine Imaging, Becca Carrion [address] [place] [address] 12/11/2023 9:15 AM EDT Office Visit Gynecology/Obstetrics Richy Carrion [address] [place] [address] Siobhan Purcell CRNP [address] [place] [address] Murali Non Stress Tests Becca [address] [place] [address] 12/12/2023 8:40 AM EDT Office Visit Rheumatology [place] [address] [facility] [place], [place] [address] Gildardo Johnson MD [facility] [place] [address] 12/18/2023 9:00 AM EDT Office Visit Gynecology/Obstetrics, [address] [place] [address] Leola Elizondo PA-C [address] [place] [address] Vanessa, Non Stress Test [address] [place] [address] 12/25/2023 9:00 AM EDT Office Visit Gynecology/Obstetrics [facility] [address] [place] [address] Siobhan Purcell CRNP [address] [place] [address] Murali, Non Stress Tests Becca [address] [place] [address] 01/01/2024 9:00 AM EDT Office Visit Gynecology/Obstetrics [facility] [address] [place] [address] Siobhan Purcell CRNP [address] [place] [address] Carrion, Non Stress Tests Becca [address] [place] [address] 01/02/2024 8:45 AM EDT Imaging Maternal Medicine Imaging, Becca Carrion [address] [place] [address] 01/08/2024 9:00 AM EDT Office Visit Gynecology/Obstetrics [facility] [address] [place] [address] Siobhan Purcell CRNP [address] [place] [address] Carrion, Non Stress Tests Becca [address] [place] [address] Scheduled Procedures Name Priority Associated Diagnoses Date/Ti [...] restriction screening for growth retardation using ultrasonics 30 weeks gestation of state, incidental documented in this encounter Advance Directives Latest Code Status on File Code Status Date Activated Date Inactivated Comments Full Code 05/14/2019 10:55 PM 05/19/2019 6:46 PM This order reflects the patients wishes and were consensually agreed upon. Question Answer Comments Discussion of Advance Directives occurred with: Patient Care Teams Assistant Professor Of Dietetics Relationship Specialty Start Date End Date Eliseo Palmer MD [address] [place] [address] PCP - General Family Medicine 05/19/19 documented as of this encounter
--- OUTSIDE RECORDS SUMMARY | 2024-01-11 07:39 | External Medical Summary | Summary of Care ---
Author Name Unknown Organization [facility] Address [address] [place] [address] Phone [phone] Care Team Providers Care Lap Maker Name Role Phone Eliseo Palmer MD Primary Care Provider + Reason for Visit * Reason Comments Return Visit Encounter Details Date Type Department Care Team (Late st Contact Info) Description 11/04/2023 9:00 AM EDT Office Visit Gynecology/Obstetric s Richy Carrion [address] [place] [address] Jody Osei PA-C [address] [place] [address] High-risk in third trimester*; Ulcerative colitis with complication, unspecified location (HCC); Systemic lupus complicating (HCC); Autoimmune hepatitis (HCC); Antepartum multigravida of advanced maternal age; History of gestational diabetes in prior , currently ; H/O migraine during ; Antepartum anemia complicating Allergies No known active allergiesdocumented as of this encounter (statuses as of 11/04/2023) Medications Medication Sig Dispensed Refills Start Date [...] as of this encounter (statuses as of 11/04/2023) Active Problems Problem Noted Date Diagnosed Date [...] hepatitis 03/23/2021 Overview: 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 Patient had workup for jaundice and elevated LFT's. Liver biopsy findings were consistent with autoimmune hepatitis. Patient treated with Azathioprine and prednisone taper at the time. Follows routinely with Hepatology. Recent LFTs normal. [facility] recommends monitoring LFTs in . Latest Reference [...] 05/12/2020 Overview: Diagnosed 2004; currently follows with [facility]umatology. She reports stable disease on [...] an increase in malformations or morbidity. The [place] Academy of Pediatrics classifies the drug as [...] as of this encounter (statuses as of 11/04/2023) Resolved Problems Problem Noted Date Diagnosed Date [...] as of this encounter (statuses as of 11/04/2023) Immunizations Name Administration Dates Next Due Seasonal [...] money to get more. Never true 12/09/2022 [place] Depression Scale Answer Date Recorded [place] Depression Scale Total 0 01/23/2022 The thought [...] Sign Reading Time Taken Comments Blood Pressure 108/62 11/04/2023 9:07 AM EDT Pulse - - Temperature - - Respiratory Rate - - Oxygen Saturation - - Inhaled Oxygen Concentration - - Weight 75.8 kg (167 lb) 11/04/2023 9:07 AM EDT Height - - Body Mass Index 30.54 10/24/2023 9:01 AM EDT documented in this encounter Functional [...] as of this encounter Progress Notes * Jody Osei PA-C - 11/04/2023 9:24 AM EDT 30w0d First time seeing patient. Increase in heartburn at bedtime. Has tried TUMS, not helping as much any more. Discussed trail of Pepcid QHS, notify office if not improving. Denies VB, LOF, contractions.Pos fm. Following with MFM for serial growths. NST weekly starting at 32 weeks. Lupus well controlled. RTC in 2 weeks SUDHIR/NST Jody Osei PA-C * Kelly Doran LPN - 11/04/2023 9:07 AM EDT Pt is currently 30w0d with an Estimated Date of Delivery: 01/13/24 - documented in this encounter Plan of Treatment Upcoming Encounters Date Type Department Care Team (Late st Contact Info) Description 11/07/2023 8:00 AM EDT Imaging Maternal Medicine Imaging, Becca Carrion [address] [place] [address] 11/20/2023 9:00 AM EDT Office Visit Gynecology/Obstetrics Richy Carrs [address] [place] [address] Siobhan Purcell CRNP [address] [place] [address] Carrion, Non Stress Tests Becca [address] [place] [address] 11/27/2023 9:00 AM EDT Office Visit Gynecology/Obstetrics Richy Carrs [address] [place] [address] Siobhan Purcell CRNP [address] [place] [address] Carrion, Non Stress Tests Becca [address] [place] [address] 12/04/2023 9:15 AM EDT Office Visit Gynecology/Obstetrics Richy Carrion [address] [place] [address] Siobhan Purcell CRNP [address] [place] [address] Carrion, Non Stress Tests Becca [address] [place] [address] 12/05/2023 8:00 AM EDT Imaging Maternal Medicine Imaging, Becca Carrion [address] [place] [address] 12/11/2023 9:15 AM EDT Office Visit Gynecology/Obstetrics Richy Carrion [address] [place] [address] Siobhan Purcell CRNP [address] [place] [address] Murali, Non Stress Tests Becca [address] [place] [address] 12/12/2023 8:40 AM EDT Office Visit Rheumatology [facility] [address] [facility] [place] [address] Gildardo Johnson MD [address] [facility] [place], [place] [address] 12/18/2023 9:00 AM EDT Office Visit Gynecology/Obstetrics, [place] [address] [facility] [place] [address] Leola Elizondo PA-C [address] [place] [address] Nakia Mendez Stress Test [address] [facility] [place] [address] 12/25/2023 9:00 AM EDT Office Visit Gynecology/Obstetrics Richy Carrion [address] [place], [place] [address] Siobhan Purcell CRNP [address] [place] [address] Murali Non Stress Tests Becca [address] [place] [address] 01/01/2024 9:00 AM EDT Office Visit Gynecology/Obstetrics [facility] [address] [place] [address] Siobhan Purcell CRNP [address] [place] [address] Murali Non Stress Tests Becca [address] [place] [address] 01/02/2024 8:45 AM EDT Imaging Maternal Medicine ImagingBecca [address] [place] [address] 01/08/2024 9:00 AM EDT Office Visit Gynecology/Obstetrics Richy Carrion [address] [place] [address] Siobhan Purcell CRNP [address] [place] [address] Murali Non Stress Tests [place] [address] Scheduled Procedures Name Priority Associated Diagnoses Date/Ti [...] High-risk in third trimester- Primary Ulcerative colitis with complication, unspecified location (HCC) Systemic lupus complicating (HCC) [...] Advance Directives occurred with: Patient Care Teams Lap Maker Relationship Specialty Start Date End Date Eliseo Palmer MD 132 [facility] [place] [address] PCP - General Family Medicine 05/19/19 documented as of this encounter
--- OUTSIDE RECORDS SUMMARY | 2024-01-11 07:39 | External Medical Summary ---
Author Name Unknown Address Unknown Organization K01:LABORATORY [facility] - [address] [place] [address] Laboratory Report Ordering Provider Test Date Status SANTI MCKINNEY 11/20/2023 09:48:06 Final Observation Date Value Abnormality Reference (Units ) Status WBC, Total 11/20/2023 09:48:06 8.19 4.00-10.8 0 (K/uL) Final RBC 11/20/2023 09:48:06 3.77 3.85-5.15 (M/uL) Final Hemoglobin 11/20/2023 09:48:06 11.5 Below low normal 12 .0-15.3 (g/dL) Final Anemia reflex testing trigge rs on a HGB < 12.0 for Females and HGB < 13.0 for Males in accordance with the WHO Anemia Guidelines
Anemia reflex testing triggers on a HGB < 12.0 for Females and HGB < 13.0 for Males in accordance with the WHO Anemia Guidelines HCT 11/20/2023 09:48:06 34.1 Below low normal 36. 0-45.2 (%) Final MCV 11/20/2023 09:48:06 90.5 81.5-97.5 (fL) Final MCH 11/20/2023 09:48:06 30.5 27.0-34.0 (pg) Final MCHC 11/20/2023 09:48:06 33.7 32.0-36.0 (g/dL) Final RDW 11/20/2023 09:48:06 13.7 11.5-15.5 (%) Final Platelets 11/20/2023 09:48:06 203 140-400 (K /uL) Final MPV 11/20/2023 09:48:06 10.3 6.6-11.1 ( fL) Final Nucleated erythrocytes/100 leukocytes [Ratio] in Blood by Automated count 11/20/2023 09:48:06 0 <=0 (/100 WBCs) Final Performing Location LABORATORY [facility] - [address] [facility] [address]
--- OUTSIDE RECORDS SUMMARY | 2024-01-11 07:39 | External Medical Summary | Summary of Care ---
Author Name Unknown Organization [facility] Address [address] [place] [address] Phone [phone] Care Team Providers Care Svp Research And Strategic Analysis Name Role Phone Eliseo Palmer MD Primary Care Provider + Encounter Details Date Type Department Care Team (Late st Contact Info) Description 10/30/2023 Telephone Gynecology/Obstetrics [facility] [address] [facility] [place] [address] BackAlivia delgado CRNP [address] [facility] [place] [address] Allergies No known active allergiesdocumented as of this encounter (statuses as of 10/30/2023) Medications Medication Sig Dispensed Refills Start Date [...] as of this encounter (statuses as of 10/30/2023) Active Problems Problem Noted Date Diagnosed Date [...] hepatitis 03/23/2021 Overview: I reviewed records from director of regional sales in 2019. Patient had workup for jaundice and elevated LFT's. Liver biopsy findings were consistent with autoimmune hepatitis. Patient treated with Azathioprine and prednisone taper at the time. Follows routinely with Hepatology. Recent LFTs normal. [facility] recommends monitoring LFTs in . Latest [...] 05/12/2020 Overview: Diagnosed 2004; currently follows with [facility] Rheumatology. She reports stable disease on [...] an increase in malformations or morbidity. The [place] [employer] Pediatrics classifies the drug as [...] with temporary GI tube (~2010). Follows with [employer] [facility]. Stable on Mesalamine; denies recent flares. [...] Comme nts Yes 01/13/2024 Based on last vt nstrual period of 04/08/2023 (Within Days) documented as of this encounter (statuses as of 10/30/2023) Resolved Problems Problem Noted Date Diagnosed Date [...] as of this encounter (statuses as of 10/30/2023) Immunizations Name Administration Dates Next Due Seasonal [...] money to get more. Never true 12/09/2022 [place] Depression Scale Answer Date Recorded [place] Depression Scale Total 0 01/23/2022 The thought [...] No 05/14/2019 documented as of this encounter Plan of Treatment Upcoming Encounters Date Type Department Care Team (Late st Contact Info) Description 11/04/2023 9:00 AM EDT Office Visit Gynecology/Obstetrics Richy Carrs [address] [place] [address] Jody Osei PA-C [address] [place] [address] 11/07/2023 8:00 AM EDT Imaging Maternal Medicine Imaging, Becca Carrs [address] [place] [phone] 12/05/2023 8:00 AM EDT Imaging Maternal Medicine Imaging, Becca Carrs [address] [place] [phone] 12/12/2023 8:40 AM EDT Office Visit Rheumatology [address] [place] [address] Gildardo Johnson MD [facility] [place] [address] 01/02/2024 8:45 AM EDT Imaging Maternal Medicine Imaging, Becca Carrs [address] [place] [phone] Scheduled Procedures Name Priority Associated Diagnoses Date/Ti [...] Not on filedocumented as of this encounter Advance Directives Latest Code Status on File Code Status Date Activated Date Inactivated Comments Full Code 05/14/2019 10:55 PM 05/19/2019 6:46 PM This order reflects the patients wishes and were consensually agreed upon. Question Answer Comments Discussion of Advance Directives occurred with: Patient Care Teams Svp Research And Strategic Analysis Relationship Specialty Start Date End Date Eliseo Palmer MD [address] [facility] [place] [address] PCP - General Family Medicine 05/19/19 documented as of this encounter
--- OUTSIDE RECORDS SUMMARY | 2024-01-11 07:39 | External Medical Summary | Summary of Care ---
Author Name Unknown Organization [facility] Address [address] [place] [address] Phone [phone] Care Team Providers Care Dual Rate Supervisor Name Role Phone Eliseo Palmer MD Primary Care Provider + Reason for Visit * Reason Comments Outpatient Testing Encounter Details Date Type Department Care Team (Late st Contact Info) Description 10/24/2023 8:30 AM EDT Laboratory Laboratory, [facility] [address] [place] [address] [facility] [address] [place] [address] High-risk in second trimester; Autoimmune hepatitis (HCC); [employer] Other*[id number] Allergies No known active allergiesdocumented as of this encounter (statuses as of 10/24/2023) Medications Medication Sig Dispensed Refills Start Date [...] by mouth in the morning. 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 Patient had workup for jaundice and elevated LFT's. Liver biopsy findings were consistent with autoimmune hepatitis. Patient treated with Azathioprine and prednisone taper at the time. Follows routinely with Hepatology. Recent LFTs normal. [facility] recommends monitoring LFTs in . Latest [...] 2004; currently follows with [facility] Rheumatology. She reports stable disease on Plaquenil [...] an increase in malformations or morbidity. The [place] [employer] Pediatrics classifies the drug as [...] Recommend screening for presence of SSA/SSB antibodies. [facility] will order this and relay results to [...] as of this encounter (statuses as of 10/24/2023) Resolved Problems Problem Noted Date Diagnosed Date [...] as of this encounter (statuses as of 10/24/2023) Immunizations Name Administration Dates Next Due Seasonal [...] money to get more. Never true 12/09/2022 [place] Depression Scale Answer Date Recorded [place] Depression Scale Total 0 01/23/2022 The thought [...] Care Team (Late st Contact Info) Description 11/06/2023 8:15 AM EDT Office Visit Gynecology/Obstetrics Richy Carrion [address] [place] [address] Siobhan Purcell CRNP [address] [place] [address] 11/07/2023 8:00 AM EDT Imaging Maternal Medicine Imaging, Becca [place] [phone] 12/05/2023 8:00 AM EDT Imaging Maternal Medicine Imaging, Be[place] [phone] 12/12/2023 8:40 AM EDT Office Visit Rheumatology [address] [place] [address] Gildardo Johnson MD [address] [place] [address] [place] [address] 01/02/2024 8:45 AM EDT Imaging Maternal Medicine Imaging, Becca [place] [phone] Pending Results Name Type Priority Associated Diagnoses Date /Time CBC WITH WBC DIFFERENTIAL AND ANEMIA REFLEX WORKUP Lab Routine High-risk in second trimester 10/24/2023 9:55 AM EDT SYPHILIS ANTIBODY SCREEN WITH REFLEX TO RPR Lab Routine High-risk in second trimester 10/24/2023 9:55 AM EDT 50-G GESTATIONAL GLUCOSE, 1 HOUR Lab Routine High-risk in second trimester 10/24/2023 9:55 AM EDT HEPATIC FUNCTION PANEL Lab Routine Autoimmune hepatitis (HCC) 10/24/2023 9:55 AM EDT MYCODE SUBSEQUENT ADULT Lab Routine [employer] Research Other*[id number] 10/24/2023 9:55 AM EDT ANEMIA CBC Lab Routine High-risk in second trimester 10/24/2023 9:55 AM EDT DIFFERENTIAL, AUTOMATED Lab Routine High-risk in second trimester 10/24/2023 9:55 AM EDT ANEMIA REFLEX CHEMISTRY HOLD Lab Routine High-risk in second trimester 10/24/2023 9:55 AM EDT SYPHILIS ANTIBODY SCREEN Lab Routine High-risk in second trimester 10/24/2023 9:55 AM EDT MYCODE SST1 Lab Routine [employer] Other*[id number] 10/24/2023 9:55 AM EDT MYCODE SST2 Lab Routine [employer] Other*[id number] 10/24/2023 9:55 AM EDT Scheduled Procedures Name Priority Associated Diagnoses Date/Ti me COLONOSCOPY FLEXIBLE PROXIMA L DIAGNOSTIC Recall Ulcerative colitis (HCC) Health Maintenance Due Date Last Done Comments Pneumococcal Vaccine: Pediatrics (0 to 5 Years) and At-Risk Patients (6 to 64 Years) (1 of 2 - PCV) 1994 COVID-19 Vaccine (1 - 2022- season) 2023 Depression Screening 10/23/2024 [...] this encounter Visit Diagnoses Diagnosis High-risk in second trimester Autoimmune hepatitis (HCC) Autoimmune hepatitis [employer] Other*[id number] documented in this encounter Advance Directives Latest Code Status on File Code Status Date Activated Date Inactivated Comments Full Code 05/14/2019 10:55 PM 05/19/2019 6:46 PM This order reflects the patients wishes and were consensually agreed upon. Question Answer Comments Discussion of Advance Directives occurred with: Patient Care Teams Dual Rate Supervisor Relationship Specialty Start Date End Date Eliseo Palmer MD [address] [place] [address] PCP - General Family Medicine 05/19/19 documented as of this encounter
--- OUTSIDE RECORDS SUMMARY | 2024-01-11 07:39 | External Medical Summary | Summary of Care ---
Author Name Unknown Organization [facility] Address [address] [place] [address] Phone [phone] Care Team Providers Care Integrated Circuit Design Engineer Name Role Phone Eliseo Palmer MD Primary Care Provider + Reason for Visit * Reason Comments Outpatient Testing Encounter Details Date Type Department Care Team (Late st Contact Info) Description 11/20/2023 10:50 AM EDT Laboratory Laboratory, [facility] [address] [place] [address] [facility] [address] [place] [address] Antepartum anemia complicating Allergies No known active allergiesdocumented as of this encounter (statuses as of 11/20/2023) Medications Medication Sig Dispensed Refills Start Date [...] as of this encounter (statuses as of 11/20/2023) Active Problems Problem Noted Date Diagnosed Date [...] hepatitis 03/23/2021 Overview: I reviewed records from licensed psychologist manager in 2019. Patient had workup for jaundice and elevated LFT's. Liver biopsy findings were consistent with autoimmune hepatitis. Patient treated with Azathioprine and prednisone taper at the time. Follows routinely with Hepatology. Recent LFTs normal. [facility] recommends monitoring LFTs in . Latest [...] currently follows with [facility] Rheumatology. She reports stable disease on Plaquenil [...] an increase in malformations or morbidity. The [place] [employer] Pediatrics classifies the drug as [...] as of this encounter (statuses as of 11/20/2023) Resolved Problems Problem Noted Date Diagnosed Date [...] as of this encounter (statuses as of 11/20/2023) Immunizations Name Administration Dates Next Due Seasonal [...] money to get more. Never true 12/09/2022 [place] Depression Scale Answer Date Recorded [place] Depression Scale Total 0 01/23/2022 The thought [...] Description 11/27/2023 9:00 AM EDT Office Visit Gynecology/Obstetrics Richy Carrion [address] [place] [address] Siobhan Purcell CRNP [address] [place] [address] Murali Non Stress Tests Becca Vasquez [address] [place] [address] 12/04/2023 9:15 AM EDT Office Visit Gynecology/Obstetrics Richy Carrion [address] [place] [address] Siobhan Purcell CRNP [address] [place] [address] Murali Non Stress Tests Becca Vas[address] [place] [address] 12/05/2023 8:00 AM EDT Imaging Maternal Medicine Imaging[place]cca [address] [place] [phone] 12/11/2023 9:15 AM EDT Office Visit Gynecology/Obstetrics Richy Carrion [address] [place] [address] Siobhan Purcell CRNP [address] [place] [address] Murali Non Stress Tests Becca [address] [place] [address] 12/12/2023 8:40 AM EDT Office Visit Rheumatology [facility] [address] [facility] [place], [place] [address] Gildardo Johnson MD [address] [facility] [place], [place] [address] 12/18/2023 9:00 AM EDT Office Visit Gynecology/Obstetrics, [place] [address] [place] [address] Leola Elizondo PA-C [address] [place] [address] Nakia Mendez Stress Test [address] [place] [address] 12/25/2023 9:00 AM EDT Office Visit Gynecology/Obstetrics Richy Carrion [address] [place] [address] Siobhan Purcell CRNP [address] [place] [address] Murali Non Stress Tests Becca [address] [place] [address] 01/01/2024 9:00 AM EDT Office Visit Gynecology/Obstetrics Richy Carrion [address] [place] [address] Siobhan Purcell CRNP [address] [place] [address] Murali Non Stress Tests Becca [address] [place] [address] 01/02/2024 8:45 AM EDT Imaging Maternal Medicine Imaging, Becca Carrion [address] [place] [phone] 01/08/2024 9:00 AM EDT Office Visit Gynecology/Obstetrics Richy Carrion [address] [place] [address] Siobhan Purcell CRNP [address] [place] [address] Murali, Non Stress Tests Becca [address] [place] [address] Pending Results Name Type Priority Associated Diagnoses Date /Time CBC WITH WBC DIFFERENTIAL AND ANEMIA REFLEX WORKUP Lab Routine Antepartum anemia complicating 11/20/2023 9:48 AM EDT ANEMIA CBC Lab Routine Antepartum anemia complicating 11/20/2023 9:48 AM EDT DIFFERENTIAL, AUTOMATED Lab Routine Antepartum anemia complicating 11/20/2023 9:48 AM EDT ANEMIA REFLEX CHEMISTRY HOLD Lab Routine Antepartum anemia complicating 11/20/2023 9:48 AM EDT Scheduled Procedures Name Priority Associated [...] as of this encounter Visit Diagnoses Diagnosis Antepartum anemia complicating Anemia, antepartum documented in this encounter Advance Directives Latest Code Status on File Code Status Date Activated Date Inactivated Comments Full Code 05/14/2019 10:55 PM 05/19/2019 6:46 PM This order reflects the patients wishes and were consensually agreed upon. Question Answer Comments Discussion of Advance Directives occurred with: Patient Care Teams Integrated Circuit Design Engineer Relationship Specialty Start Date End Date Eliseo Palmer MD [address] [place] [address] PCP - General Family Medicine 05/19/19 documented as of this encounter
--- OUTSIDE RECORDS SUMMARY | 2024-01-11 07:39 | External Medical Summary | Summary of Care ---
Author Name Unknown Organization [facility] Address [address] [place] [address] Phone [phone] Care Team Providers Care Ocular Care Aide Name Role Phone Eliseo Palmer MD Primary Care Provider + Reason for Visit * Reason Comments Non Stress Test Encounter Details Date Type Department Care Team (Late st Contact Info) Description 11/20/2023 9:00 AM EDT Office Visit Gynecology/Obstetric s [facility] [address] [facility] [place] [address] Siobhan Purcell CRNP [address] [place] [address] Murali Non Stress Tests Becca [address] [place] [address] High-risk in third trimester*; Ulcerative colitis without [...] hepatitis 03/23/2021 Overview: I reviewed records from knock up assembler in 2019. Patient had workup for jaundice and elevated LFT's. Liver biopsy findings were consistent with autoimmune hepatitis. Patient treated with Azathioprine and prednisone taper at the time. Follows routinely with Hepatology. Recent LFTs normal. [facility] recommends monitoring LFTs in . Latest [...] Overview: Diagnosed 2004; currently follows with [facility] Rheumatology. She reports stable disease on [...] an increase in malformations or morbidity. The [place] [employer] Pediatrics classifies the drug as [...] with temporary GI tube (~2010). [facility] Stable on Mesalamine; denies recent flares. [...] money to get more. Never true 12/09/2022 [place] Depression Scale Answer Date Recorded [place] Depression Scale Total 0 01/23/2022 The thought [...] Sign Reading Time Taken Comments Blood Pressure 96/56 11/20/2023 8:59 AM EDT Pulse - - Temperature - - Respiratory Rate - - Oxygen Saturation - - Inhaled Oxygen Concentration - - Weight 76.7 kg (169 lb) 11/20/2023 8:59 AM EDT Height - - Body Mass Index 30.91 10/24/2023 9:01 AM EDT documented in this [...] Progress Notes * Siobhan Purcell CRNP - 11/20/2023 9:38 AM EDT 32w2d No concerns. Baby is active. Denies contractions, bleeding, LOF. Minimal edema. Taking iron as directed, will repeat CBC today. Following with MFM. ASSESSMENT assessment with Non-stress Test completed on 11/20/2023 at 32.2weeks gestation for indication of lupus heart baseline: 140 bpm Variability: Moderate Decelerations: absent Accelerations: present Contractions: None NST start time: 0854 NST stop time: 0920 NST strip reviewed, interpreted, and approved by OB providerSiobhan CRNP . NST strip stored in clinic storage file * Henna Sales LPN - 11/20/2023 9:29 AM EDT 32w2d Denies vaginal bleeding/rom + movement NST today No new concerns documented in this encounter Plan of Treatment Upcoming Encounters Date Type Department Care Team (Late st Contact Info) Description 11/20/2023 10:50 AM EDT [facility] [address] [place] [phone] Ifrah Carrion [address] [place] [address] Antepartum anemia complicating 11/27/2023 9:00 AM EDT Office Visit Gynecology/Obstetric s Richy Carrion [address] [place] [address] Siobhan Purcell CRNP [address] [place] [address] Nakia Carrion Stress Tests Becca [address] [place] [address] 12/04/2023 9:15 AM EDT Office Visit Gynecology/Obstetric s Richy Carrion [address] [place] [address] Siobhan Purcell CRNP [address] [place] [address] Murali Non Stress Tests Becca [address] [place] [address] 12/05/2023 8:00 AM EDT Imaging Maternal Medicine Imaging, Becca [address] [place] [phone] 12/11/2023 9:15 AM EDT Office Visit Gynecology/Obstetric s Richy Carrion [address] [place] [address] Siobhan Purcell CRNP [address] [place] [address] Carrion, Non Stress Tests Becca [address] [place] [address] 12/12/2023 8:40 AM EDT Office Visit Rheumatology [place] [phone] [facility] [place], [place] [address] Gildardo Johnson MD [facility] [place] [address] 12/18/2023 9:00 AM EDT Office Visit Gynecology/Obstetric s, [place] [address] [place] [address] Leola Elizondo PA-C [address] [place] [address] Nakia Mendez Stress [facility] [address] [facility] [address] 12/25/2023 9:00 AM EDT Office Visit Gynecology/Obstetric s Joey[facility] Carrion [address] [place] [address] Siobhan Purcell CRNP [address] [place] [address] Murali, Non Stress Tests Becca [address] [place] [address] 01/01/2024 9:00 AM EDT Office Visit Gynecology/Obstetric s [facility] Carrion [address] [place] [address] Siobhan Purcell CRNP [address] [place] [address] Carrion, Non Stress Tests Becca [address] [place] [address] 01/02/2024 8:45 AM EDT Imaging Maternal Medicine Imaging, Becca Carrion [address] [place] [phone] 01/08/2024 9:00 AM EDT Office Visit Gynecology/Obstetric s Richy Carrion [address] [place] [address] Siobhan Purcell CRNP [address] [place] [address] Murali Nakia Stress Tests Becca [address] [place] [address] Pending Results Name Type Priority Associated Diagnoses Date /Time CBC WITH WBC DIFFERENTIAL AND ANEMIA REFLEX WORKUP Lab Routine Antepartum anemia complicating 11/20/2023 9:48 AM EDT Scheduled Orders Name Type Priority Associated Diagnoses Orde r Schedule CBC WITH WBC DIFFERENTIAL AND ANEMIA REFLEX WORKUP Lab Routine Antepartum anemia complicating Expected: 11/20/2023, Expires: 11/19/2024 Scheduled Procedures Name Priority Associated Diagnoses Date/Ti [...] other high-risk Antepartum anemia complicating Anemia, antepartum Antepartum anemia complicating Anemia, antepartum documented in this encounter Advance Directives Latest Code Status on File Code Status Date Activated Date Inactivated Comments Full Code 05/14/2019 10:55 PM 05/19/2019 6:46 PM This order reflects the patients wishes and were consensually agreed upon. Question Answer Comments Discussion of Advance Directives occurred with: Patient Care Teams Ocular Care Aide Relationship Specialty Start Date End Date Eliseo Palmer MD [address] [place] [address] PCP - General Family Medicine 05/19/19 documented as of this encounter
--- OUTSIDE RECORDS SUMMARY | 2024-01-11 07:39 | External Medical Summary ---
Author Name Unknown Address Unknown Organization K01:[facility] [address] [facility] [place] [place] [address] Laboratory Report Ordering Provider Test Date Status NANCY MCKINNEYOSLOMON 11/20/2023 09:48:06 Final Observation Date Value Abnormality Reference (Units ) Status SYNC LEUKOCYTES IN BLOOD BY AUTOMATED COUNT 11/20/2023 09:48:06 8.19 4.00-10.80 (K/uL) Final Segs 11/20/2023 09:48:06 65.4 40.0-75.0 (%) Final Lymphs % 11/20/2023 09:48:06 25.4 18.0-42.0 (%) Final Monos 11/20/2023 09:48:06 5.6 1.0-11.0 (%) Final Eosinophils 11/20/2023 09:48:06 1.7 0.0-6.0 (%) Final Basos 11/20/2023 09:48:06 0.9 0.0-2.0 (%) Final Immature Granulocyte, Percent 11/20/2023 09:48:06 1.0 0.0-2.0 (%) Final Absolute Segs 11/20/2023 09:48:06 5.36 1.80-7.70 (K/uL) Final Lymphs, absolute 11/20/2023 09:48:06 2.08 1.00-4.80 (K/ul) Final Monos, Abs 11/20/2023 09:48:06 0.46 0.00-1.10 (K/uL) Final Eos, Abs 11/20/2023 09:48:06 0.14 0.00-0.70 (K/uL) Final Basos, Abs 11/20/2023 09:48:06 0.07 0.00-0.20 (K/uL) Final Immature Granulocytes, Number 11/20/2023 09:48:06 0.08 0.00-0.20 (K/uL) Final Performing Location [facility] - [address] [facility] [address]
--- OUTSIDE RECORDS SUMMARY | 2024-01-11 07:39 | External Medical Summary | Summary of Care ---
Author Name Unknown Organization [facility] Address [address] [place] [address] Phone [phone] Care Team Providers Care Residential Builder Name Role Phone Eliseo Palmer MD Primary Care Provider + Encounter Details Date Type Department Care Team (Late st Contact Info) Description 12/04/2023 9:15 AM EDT Office Visit Gynecology/Obstetric s [facility] Murali [address] [facility] [place] [address] Siobhan Purcell CRNP [address] [place] [address] Murali, Non Stress Tests Becca [address] [place] [address] High-risk in third trimester*; Ulcerative pancolitis without complication (HCC); Systemic lupus complicating (HCC); Autoimmune hepatitis (HCC); Antepartum multigravida of advanced maternal age; History of gestational diabetes in prior , currently ; H/O migraine during ; Antepartum anemia complicating Allergies No known active allergiesdocumented as of this encounter (statuses as of 12/04/2023) Medications Medication Sig Dispensed Refills Start Date [...] as of this encounter (statuses as of 12/04/2023) Active Problems Problem Noted Date Diagnosed Date [...] hepatitis 03/23/2021 Overview: 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 Patient had workup for jaundice and elevated LFT's. Liver biopsy findings were consistent with autoimmune hepatitis. Patient treated with Azathioprine and prednisone taper at the time. Follows routinely with Hepatology. Recent LFTs normal. [facility] recommends monitoring LFTs in . Latest [...] Diagnosed 2004; currently follows with [facility] Rheumatology. She reports stable disease on [...] an increase in malformations or morbidity. The [place] [employer] classifies the drug as [...] as of this encounter (statuses as of 12/04/2023) Resolved Problems Problem Noted Date Diagnosed Date [...] as of this encounter (statuses as of 12/04/2023) Immunizations Name Administration Dates Next Due Seasonal [...] money to get more. Never true 12/09/2022 [place] Depression Scale Answer Date Recorded [place] Depression Scale Total 0 01/23/2022 The thought [...] Reading Time Taken Comments Blood Pressure 100/58 12/04/2023 9:20 AM EDT Pulse - - Temperature - - Respiratory Rate - - Oxygen Saturation - - Inhaled Oxygen Concentration - - Weight 77.6 kg (171 lb) 12/04/2023 9:20 AM EDT Height 157.5 cm (5' 2") 12/04/2023 9:20 AM EDT Body Mass Index 31.28 12/04/2023 9:20 AM EDT documented in this encounter Functional [...] Progress Notes * Siobhan Purcell CRNP - 12/04/2023 9:27 AM EDT 34w2d No concerns. Baby is active. No contractions, bleeding, LOF. MFM appt tomorrow ASSESSMENT assessment with Non-stress Test completed on 12/04/2023 at 34.2weeks gestation for indication of lupus heart baseline: 130 bpm Variability: Moderate Decelerations: absent Accelerations: present Contractions: None NST start time: 912 NST stop time: 935 NST strip reviewed, interpreted, and approved by OB provider, RACHID Esquivel . NST strip stored in clinic storage file documented in this encounter Plan of Treatment Upcoming Encounters Date Type Department Care Team (Late st Contact Info) Description 12/05/2023 8:00 AM EDT Imaging Maternal Medicine Imaging, [facility] [address] [place] [phone] 12/05/2023 8:00 AM EDT Office Visit Clinical Laboratory Manager Obstetrics Maternal Medicine, Becca Carrs [address] [place] [address] Meagan Phelps Arguellesi, DO [address] [place] [address] 12/11/2023 9:15 AM EDT Office Visit Gynecology/Obstetrics [place] [address] [place] [address] Siobhan Purcell CRNP [address] [place] [address] Murali Non Stress Tests [place] [address] [place] [address] 12/12/2023 8:40 AM EDT Office Visit Rheumatology [address], [place] [address] Gildardo Johnson MD [address] [place] [address], [place] [address] 12/18/2023 9:00 AM EDT Office Visit Gynecology/Obstetrics, [place] [address] [place] [address] Leola Elizondo PA-C [address] [place] [address] Vanessa, Non Stress Test [address] [place] [address] 12/25/2023 9:00 AM EDT Office Visit Gynecology/Obstetrics [place] [address] [place] [address] Siobhan Purcell CRNP [address] [place] [address] Murali, Non Stress Tests Becca [address] [place] [address] 01/01/2024 9:00 AM EDT Office Visit Gynecology/Obstetrics Richy Carrion [address] [place] [address] Siobhan Purcell CRNP [address] [place] [address] Carrion, Non Stress Tests Becca [address] [place] [address] 01/02/2024 8:45 AM EDT Imaging Maternal Medicine Imaging, [place] [address] 01/08/2024 9:00 AM EDT Office Visit Gynecology/Obstetrics Richy Carrion [address] [place] [address] Siobhan Purcell CRNP [address] [place] [address] Carrion, Non Stress Tests [place] [address] Scheduled Procedures Name Priority Associated Diagnoses Date/Ti [...] Advance Directives occurred with: Patient Care Teams Residential Builder Relationship Specialty Start Date End Date Eliseo Palmer MD [address] [place] [address] PCP - General Family Medicine 05/19/19 documented as of this encounter
--- OUTSIDE RECORDS SUMMARY | 2024-01-11 07:39 | External Medical Summary | Summary of Care ---
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 Patient had workup for jaundice and elevated LFT's. Liver biopsy findings were consistent with autoimmune hepatitis. Patient treated with Azathioprine and prednisone taper at the time. Follows routinely with Hepatology. Recent LFTs normal. [facility] recommends monitoring LFTs in . [...] 05/12/2020 Overview: Diagnosed 2004; currently follows with [facility] Rheumatology. She reports stable disease on [...] an increase in malformations or morbidity. The [place] [employer] classifies the drug as [...] money to get more. Never true 12/09/2022 [place] Depression Scale Answer Date Recorded [place] Depression Scale Total 0 01/23/2022 The thought [...] as of this encounter Progress Notes * Francisco Simon RN - 10/30/2023 10:15 AM EDT REFERRAL - Patient Blood Management Name: [facility]: new evaluation outpatient, anemia in [place]: 01/13/24 Anemia Evaluation: Latest Reference Range & Units 10/24/23 09:55 HGB 12.0 - 15.3 g/dL 11.2 (L) HCT 36.0 - 45.2 % 33.5 (L) Iron 33 - 151 ug/dL 45 Iron Binding Capacity 250 - 425 ug/dL 437 (H) Transferrin Saturation Percent 15 - 55 % 10 (L) Ferritin 13 - 150 ng/mL 16 Vitamin B12 232 - 1,245 pg/mL 266 Folic Acid >4.5 ng/mL 15.3 Immature Reticuloctye Fraction 2.5 - 20.6 % 27.1 (H) Reticulocyte Hemoglobin 29.7 - 37.4 pg 31.1 Current Patient Medications: Medications that may impair hemostasis: bASA Medications that may impair iron absorption: none Patient Refused Blood Transfusion? (e.g. Quaker): no Possible Contributing Factors: iron deficiency Treatment Recommendations: HGB > 11 in third trimester. Continue current PO iron therapy. Consider PO iron QOD, or ferrous sulfate liquid to increase tolerability. Also increase dietary intake as able. Recheck CBC and re-refer to PBM if HGB < 11 on recheck. Discussed with Backer RACHID, who discussed with patient who is agreeable to plan. Thank you for allowing Blood Management to participate in the care of this patient. documented in this encounter Plan of Treatment Upcoming Encounters Date Type Department Care Team (Late st Contact Info) Description 11/04/2023 9:00 AM EDT Office Visit Gynecology/Obstetrics [place] Carr[place] [address] [place] [address] Jody Osei PA-C [address] [place] [address] 11/07/2023 8:00 AM EDT Imaging Maternal Medicine Imaging, Becca Carrion [address] [place] [address] 12/05/2023 8:00 AM EDT Imaging Maternal Medicine Imaging, [place]cca [place] [address] [place] [address] 12/12/2023 8:40 AM EDT Office Visit Rheumatology [place] [address] [employer] [place] [address] Gildardo Johnson MD [address] [place] [address] 01/02/2024 8:45 AM EDT Imaging Maternal Medicine Imaging, [place]cca [place] [address] [place] [phone] Scheduled Procedures Name Priority Associated Diagnoses Date/Ti [...] Advance Directives occurred with: Patient Care Teams Oncologist Relationship Specialty Start Date End Date Eliseo Palmer MD [address] [place] [address] PCP - General Family Medicine 05/19/19 documented as of this encounter
--- OUTSIDE RECORDS SUMMARY | 2024-01-11 07:40 | External Medical Summary ---
Author Name Unknown Address Unknown Organization [id number]:[facility]ATORY [facility] [place] [address] [place] [address] Laboratory Report Ordering Provider Test Date Status DIETER BAIRES 10/24/2023 09:55:55 Final Observation Date Value Abnormality Reference (Units ) Status Folic Acid 10/24/2023 09:55:55 15.3 >4.5 (ng/ mL) Final Performing Location LABORATORY [facility] - [address] [place] [address]
--- OUTSIDE RECORDS SUMMARY | 2024-01-11 07:40 | External Medical Summary ---
Author Name Unknown Address Unknown Organization K01:[facility] [place] [facility] [address] [facility] [address] Laboratory Report Ordering Provider Test Date Status HARRIS BAIRESER 10/24/2023 09:55:55 Final Observation Date Value Abnormality Reference (Units ) Status Retic, % (auto) 10/24/2023 09:55:55 2.39 Above high normal 0.80-1.90 (%) Final Reticulocytes, Absolute 10/24/2023 09:55:55 86.3 31.3-100.1 (K/uL) Final Reticulocyte fraction, immature 10/24/2023 09:55:55 27.1 Above high normal 2.5-20.6 (%) Final Reticulocyte HGB 10/24/2023 09:55:55 31.1 29.7-37.4 (pg) Final Performing Location LABORATORY [facility] [place] - [address] [place] [address]
--- OUTSIDE RECORDS SUMMARY | 2024-01-11 07:40 | External Medical Summary ---
Author Name Unknown Address Unknown Organization K0G:LABORATORY [facility] - [address] [place] [address] Laboratory Report Ordering Provider Test Date Status VIRYBACKER 08/08/2023 09:37:34 Final Observation Date Value Abnormality Reference (Units ) Status Albumin 08/08/2023 09:37:34 3.9 3.8-5.0 (g/dL) Final AST (Aspartate aminotransferase) 08/08/2023 09:37:34 12 10-35 (U/L) Final Alk Phos 08/08/2023 09:37:34 46 35-130 (U/L) Final ALT (Alanine aminotransferase) 08/08/2023 09:37:34 11 10-35 (U/L) Final Bilirubin, Total 08/08/2023 09:37:34 <0.2 <=1.2 (mg/dL) Final Bilirubin, Direct 08/08/2023 09:37:34 <0.2 0.0-0.3 (mg/dL) Final Protein 08/08/2023 09:37:34 6.5 6.0-8.3 (g/dL) Final Performing Location [facility] [address] [place] [address]
--- OUTSIDE RECORDS SUMMARY | 2024-01-11 07:40 | External Medical Summary | Summary of Care ---
Author Name Unknown Organization [facility] Address [address] [place] [address] Phone [phone] Care Team Providers Care Warehouse Driver Name Role Phone Eliseo Palmer MD Primary Care Provider + Reason for Visit * Reason Comments Return Visit Encounter Details Date Type Department Care Team (Late st Contact Info) Description 10/04/2023 8:30 AM EST Office Visit Gynecology/Obstetric s Richy Carrion [address] [place] [address] Alivia Kinsey CRNP [address] [place] [address] High-risk in second trimester*; Ulcerative colitis with complication, unspecified location (HCC); Systemic lupus complicating (HCC); Autoimmune hepatitis (HCC); Antepartum multigravida of advanced maternal age; History of gestational diabetes in prior , currently ; H/O migraine during Allergies No known active allergiesdocumented as of this encounter (statuses as of 10/04/2023) Medications Medication Sig Dispensed Refills Start Date [...] as of this encounter (statuses as of 10/04/2023) Active Problems Problem Noted Date Diagnosed Date [...] hepatitis 03/23/2021 Overview: 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 Patient had workup for jaundice and elevated LFT's. Liver biopsy findings were consistent with autoimmune hepatitis. Patient treated with Azathioprine and prednisone taper at the time. Follows routinely with Hepatology. Recent LFTs normal. [facility] recommends monitoring LFTs in . Latest [...] 05/12/2020 Overview: Diagnosed 2004; currently follows with [facility] Rheumatology. She reports stable disease on [...] an increase in malformations or morbidity. The [place] [employer] Pediatrics classifies the drug as [...] with temporary GI tube (~2010). Follows with [facility]. Stable on Mesalamine; denies recent flares. Had [...] as of this encounter (statuses as of 10/04/2023) Resolved Problems Problem Noted Date Diagnosed Date [...] as of this encounter (statuses as of 10/04/2023) Immunizations Name Administration Dates Next Due Seasonal Influenza Virus Vac cine, Unspecified Formulation 08/26/2018 Seasonal Influenza, PF, 6 M & above, IM , (FluLaval or Fluzone) 05/18/2023,04/19/2021,05/12/2020 Seasonal Influenza, Quadriva lent, No Preserve, Mdck 08/20/2018 TDAP (age 10 and older)(Boostrix) 07/03/2021 documented as of this encounter Social History Tobacco Use Types Packs/Day Years Used Date Smoking Tobacco: Never Smokeless Tobacco: Never Alcohol Use Standard Drinks/Week Comments Not Currently 5 (1 standard drink = 0.6 oz pur e alcohol) Denies in PHQ-2 Answer Date Recorded PHQ-2 Score 0 05/24/2020 Hunger Vital Sign Answer Date Recorded Within the past 12 months, y ou worried that your food would run out before you got the money to buy more. Never true 12/10/19 23 Within the past 12 months, t he food you bought just didn't last and you didn't have money to get more. Never true 12/09/2022 [place] Depression Scale Answer Date Recorded [place] Depression Scale Total 0 01/23/2022 The thought [...] Sign Reading Time Taken Comments Blood Pressure 94/56 10/04/2023 8:25 AM EST Pulse - - Temperature - - Respiratory Rate - - Oxygen Saturation - - Inhaled Oxygen Concentration - - Weight 74.8 kg (165 lb) 10/04/2023 8:25 AM EST Height - - Body Mass Index 30.18 06/10/2023 1:46 PM EDT documented in this encounter Functional Status [...] as of this encounter Progress Notes * Kelly Doran LPN - 10/04/2023 8:25 AM EST Pt is currently 25w4d with an Estimated Date of Delivery: 01/13/24 - * Alivia Kinsey CRNP - 10/04/2023 8:23 AM EST 25w4d Doing well. + movement. No cramping or bleeding. Sees MFM regularly, scheduled for next week. Labs next visit, including LFTs. 2 week return RACHID Banda documented in this encounter Plan of Treatment Upcoming Encounters Date Type Department Care Team (Late st Contact Info) Description 10/11/2023 11:30 AM EST Office Visit Registered Nurse [facility] Susan Mattson [address] [place] [address] [address] [place] [address] Meagan Phelps, [address] [place] [address] 10/11/2023 11:30 AM EST Imaging Maternal Medicine [facility] Susan Mattson [address] [place] [address] [address] [place] [address] 10/24/2023 8:30 AM EDT Laboratory Laboratory, [facility] [address] [facility] [place] [address] Carr[place] [address] 10/24/2023 9:00 AM EDT Office Visit Gynecology/Obstetrics Richy Carrion [address] [place] [address] Siobhan Purcell CRNP [address] [place] [address] 11/07/2023 8:00 AM EDT Imaging Maternal Medicine Imaging, [place] [address] 12/05/2023 8:00 AM EDT Imaging Maternal Medicine Imaging, [place] [address] 12/12/2023 8:40 AM EDT Office Visit Rheumatology [place] [address] [facility] [place] [address] Gildardo Johnson MD [address] [place] [address] [place] [address] 01/02/2024 8:45 AM EDT Imaging Maternal Medicine Imaging, [place] [phone] Scheduled Orders Name Type Priority Associated Diagnoses Orde r Schedule CBC WITH WBC DIFFERENTIAL AND ANEMIA REFLEX WORKUP Lab Routine High-risk in second trimester Expected: 10/18/2023, Expires: 10/04/2024 SYPHILIS ANTIBODY SCREEN WITH REFLEX TO RPR Lab Routine High-risk in second trimester Expected: 10/18/2023 (Approximate), Expires: 10/04/2024 50-G GESTATIONAL GLUCOSE, 1 HOUR Lab Routine High-risk in second trimester Expected: 10/18/2023 (Approximate), Expires: 10/04/2024 HEPATIC FUNCTION PANEL Lab Routine Autoimmune hepatitis (HCC) Expected: 10/18/2023 (Approximate), Expires: 10/04/2024 Scheduled Procedures Name Priority Associated Diagnoses Date/Ti me COLONOSCOPY FLEXIBLE PROXIMA L DIAGNOSTIC Recall Ulcerative colitis (HCC) Health Maintenance Due Date Last Done Comments Pneumococcal Vaccine: Pediatrics (0 to 5 Years) and At-Risk Patients (6 to 64 Years) (1 of 2 - PCV) 1994 Depression Screening 05/24/2021 05/24/2020 COVID-19 Vaccine (1 - 24 season) 2023 Diabetes Screening 01/21/2026 01/21/2023, 0 01/21/2023, 11/30/2021, Additional history exists COLONOSCOPY-EVERY 3 YRS AGES 18-100 01/22/2026 01/22/2023, 01/22/2023 PAP SMEAR-EVERY 5 YRS,AGES 21-100 06/10/2028 06/10/2023, 05/12/2020, 05/29/2019 DTaP,Tdap,and Td Vaccines (2 - Td or Tdap) 07/03/2031 07/03/2021 Influenza Vaccine (FLU shot) Completed 02/2023, 04/19/2021, 05/12/2020, Additional history exists GARDASIL-HPV IMMUNIZATION SERIES Aged Out No longer eligible based on patient's age to complete this topic MENINGOCOCCAL (MENACTRA/MENVEO) Aged Out No longer eligible based on patient's age to complete this topic documented as of this encounter Medical Devices Not on filedocumented as of this encounter Visit Diagnoses Diagnosis High-risk in second trimester- Primary Ulcerative colitis with complication, unspecified location (HCC) Systemic lupus complicating (HCC) Other current maternal conditions classifiable elsewhere, complicating , childbirth, or the puerperium, unspecified as to episode of care Autoimmune hepatitis (HCC) Autoimmune hepatitis Antepartum multigravida of advanced maternal age History of gestational diabetes in prior , currently with other poor obstetric history H/O migraine during Supervision of other high-risk documented in this encounter Advance Directives Latest Code Status on File Code Status Date Activated Date Inactivated Comments Full Code 05/14/2019 10:55 PM 05/19/2019 6:46 PM This order reflects the patients wishes and were consensually agreed upon. Question Answer Comments Discussion of Advance Directives occurred with: Patient Care Teams Warehouse Driver Relationship Specialty Start Date End Date Eliseo Palmer MD [address] [place] [address] PCP - General Family Medicine 05/19/19 documented as of this encounter
--- OUTSIDE RECORDS SUMMARY | 2024-01-11 07:40 | External Medical Summary | Summary of Care ---
Author Name Unknown Organization [facility] Address [address] [place] [address] Phone [phone] Care Team Providers Care Leather Staker Name Role Phone Eliseo Palmer MD Primary Care Provider + Encounter Details Date Type Department Care Team (Late st Contact Info) Description 10/21/2023 Orders Only Outcomes Research Department [address] [place] [address] Savanna Ratliff [employer] Research Other*[id number] Allergies No known active allergiesdocumented as of this encounter (statuses as of 10/21/2023) Medications Medication Sig Dispensed Refills Start Date [...] as of this encounter (statuses as of 10/21/2023) Active Problems Problem Noted Date Diagnosed Date [...] hepatitis 03/23/2021 Overview: I reviewed records from senior specialist in 2019. Patient had workup for jaundice and elevated LFT's. Liver biopsy findings were consistent with autoimmune hepatitis. Patient treated with Azathioprine and prednisone taper at the time. Follows routinely with Hepatology. Recent LFTs normal. [facility] recommends monitoring LFTs in . Latest [...] 05/12/2020 Overview: Diagnosed 2004; currently follows with [facility] Rheumatology. She reports stable disease [...] an increase in malformations or morbidity. The [place] [employer] Pediatrics classifies the drug as [...] Recommend screening for presence of SSA/SSB antibodies. [facility] will order this and relay results [...] as of this encounter (statuses as of 10/21/2023) Resolved Problems Problem Noted Date Diagnosed Date [...] as of this encounter (statuses as of 10/21/2023) Immunizations Name Administration Dates Next Due Seasonal [...] money to get more. Never true 12/09/2022 [place] Depression Scale Answer Date Recorded [place] Depression Scale Total 0 01/23/2022 The thought [...] Description 10/24/2023 8:30 AM EDT Laboratory Laboratory, [facility] [address] [facility] [place] [address] CarrionIfrah balderas [place] [address] 10/24/2023 9:00 AM EDT Office Visit Gynecology/Obstetrics [place] [address] Siobhan Purcell CRNP [address] [place], [place] [address] 11/07/2023 8:00 AM EDT Imaging Maternal Medicine Imaging, [place] [phone] 12/05/2023 8:00 AM EDT Imaging Maternal Medicine Imaging, [place] [phone] 12/12/2023 8:40 AM EDT Office Visit Rheumatology [address] [place], [place] [address] Gildardo Johnson MD [address] [place] [address] [place], [place] [address] 01/02/2024 8:45 AM EDT Imaging Maternal Medicine Imaging, [place] [phone] Scheduled Orders Name Type Priority Associated Diagnoses Orde r Schedule MYCODE SUBSEQUENT ADULT Lab Routine My[employer] Research Other*[id number] Every 6 Months for 2 Occurrences starting 10/21/2023 until 11/09/2024 Scheduled Procedures Name Priority Associated Diagnoses Date/Ti me COLONOSCOPY FLEXIBLE PROXIMA L DIAGNOSTIC Recall Ulcerative colitis (HCC) Health Maintenance Due Date Last Done Comments Pneumococcal Vaccine: Pediatrics (0 to 5 Years) and At-Risk Patients (6 to 64 Years) (1 of 2 - PCV) 1994 Depression Screening 05/24/2021 05/24/2020 COVID-19 Vaccine (1 - 2022-24 season) 2023 Diabetes Screening 01/21/2026 01/21/2023, 0 [...] as of this encounter Visit Diagnoses Diagnosis [employer] Research Other*[id number] documented in this encounter Advance Directives Latest Code Status on File Code Status Date Activated Date Inactivated Comments Full Code 05/14/2019 10:55 PM 05/19/2019 6:46 PM This order reflects the patients wishes and were consensually agreed upon. Question Answer Comments Discussion of Advance Directives occurred with: Patient Care Teams Leather Staker Relationship Specialty Start Date End Date Eliseo Palmer MD [address] [place] [address] PCP - General Family Medicine 05/19/19 documented as of this encounter
--- OUTSIDE RECORDS SUMMARY | 2024-01-11 07:40 | External Medical Summary ---
Author Name Unknown Address Unknown Organization K01:LAB[facility]ORY [facility] [place] - [facility] [address] [place] [address] Laboratory Report Ordering Provider Test Date Status DIETER BAIRES 10/24/2023 09:55:55 Final Observation Date Value Abnormality Reference (Units ) Status Creatinine 10/24/2023 09:55:55 0.5 0.5-1.0 (mg/dL) Final Glomerular filtration rate/1.73 sq M.predicted [Volume Rate/Area] in Serum, Plasma or Blood by Creatinine-based formula (CKD-EPI) 10/24/2023 09:55:55 >90 >=60 (mL/min) Final eGFR is calculated based on the CKD-EPI 2020 equation Performing Location LABORATORY [facility] [place] - [address] [place] [address]
--- OUTSIDE RECORDS SUMMARY | 2024-01-11 07:40 | External Medical Summary | Summary of Care ---
Author Name Unknown Organization [facility] Address [address] [place] [address] Phone [phone] Care Team Providers Care Posting Machine Operator Name Role Phone Eliseo Palmer MD Primary Care Provider + Reason for Visit * Reason Comments Outpatient Testing Encounter Details Date Type Department Care Team (Late st Contact Info) Description 08/08/2023 10:10 AM EST Laboratory Laboratory, [facility] [address] [place] [address] [facility] [address] [place] [address] Autoimmune hepatitis (HCC) Allergies No known active allergiesdocumented as of this encounter (statuses as of 08/08/2023) Medications Medication Sig Dispensed Refills Start Date [...] as of this encounter (statuses as of 08/08/2023) Active Problems Problem Noted Date Diagnosed Date H/O migraine during 06/18/2023 Overview: Patient reports history of migraines associated with her menstrual cycle. Currently experiencing frequent migraines in . Avoids Tylenol due to history of autoimmune Hepatitis. Has taken it occasionally for severe pain. Last Assessment & Plan: Considerations: The occurrence of migraine is modulated by fluctuations in estrogen levels. Most women (60 to 70 percent) with a history of migraine report improvement over the course of , approximately 5 percent describe worsening, and the remainder report no change Indications for neuroimaging and lumbar puncture are similar to those in non adults. Reviewed relief measures for headaches in include adequate hydration, small frequent meals, and Tylenol with caffeinated beverage as needed. Advise limiting Tylenol to no greater than 3000 mg per day. Recommendations: Recommend evaluation for Preeclampsia if greater than 20 weeks gestation. Recommend follow up with primary care provider or Neurology consult if headache symptoms worsen No contraindications for taking Fioricet as needed for severe headaches. Discussed that supplementation with magnesium 400 mg twice daily, co-q10 100 mg three times daily, and riboflavin (vitamin B2) 400 mg once daily may decrease the frequency of migraine headaches. These can be obtained over the counter at any pharmacy and are not contraindicated in . Avoid or monitor effects of possible headache triggers: Chocolate Cheese Deli meats Artificial sweeteners High-risk 06/18/2023 Antepartum multigravida of advanced maternal age 1006/10/2023 Overview: Ms. Malin will be 33 years-old at time of delivery (DENIA 01/13/24). Low risk NIPT Last Assessment & Plan: CONSIDERATIONS: We reviewed the most pertinent aspects of the following: Advanced maternal age (AMA) refers to a woman with a blum who will be at the age of 35 or older at the estimated time of delivery and may be associated with increased morbidity. Cell-free DNA (cffDNA) screening is a genetic screening option that analyzes maternal blood for DNA that is placental in origin and targets the following conditions: Trisomy 21 (Down syndrome), trisomy 18, trisomy 13, and sex chromosome abnormalities such as monosomy X (Portillo syndrome), and sex chromosome trisomies (triple X, Klinefelter syndrome, XYY). It may also evaluate for other genetic alterations such as microdeletions, depending on the specific test. It reveals the sex of the fetus but should generally not be performed solely for this indication. The screening test can be performed after 10 weeks gestation. Results provided are NOT diagnostic, but provide a risk estimate. Types of results include low-risk/negative, high-risk/positive, and inconclusive. Low-risk results convey a low risk for the conditions screened, while high-risk results will indicate which condition is high risk and the likelihood of the condition based on the results. High-risk and inconclusive results would require follow up with a Maternal- Medicine genetic counselor. Amniocentesis would be recommended in the setting of high-risk results. Results are available 5-7 days after the test is completed. Cost of cffDNA screening is dependent on health insurance plan. Brochure provided to patient with contact information to call and inquire about insurance coverage and [place] [address]). Patient aware not all insurances cover this test. The performing laboratory will bill the insurance directly. Offer MSAFP only (not Quad Screen) at 16-22 weeks if screening for open neural tube defects is desired. Amniocentesis for diagnosis of chromosomal abnormalities is also available. The risk of complications from the procedure and that risk is 1 in 500 (0.2%). In addition to the risk of chromosomal abnormalities, there is an increased risk of congenital/structural anomalies. RECOMMENDATIONS: Recommend MFM anatomy ultrasound at 19-20 weeks gestation. 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 Patient had workup for jaundice and elevated LFT's. Liver biopsy findings were consistent with autoimmune hepatitis. Patient treated with Azathioprine and prednisone taper at the time. Follows routinely with Hepatology. Recent LFTs normal. [facility] recommends monitoring LFTs in . Latest [...] throughout . Raynaud's disease without gangrene 07/13/2020 Systemic lupus complicating 05/12/2020 Overview: Diagnosed 2004; currently follows with [facility]. She reports stable disease on Plaquenil [...] an increase in malformations or morbidity. The [place] [employer] classifies the drug as [...] Autoimmune hepatitis 05/15/2019 Overview: LFTs every trimester Transaminitis 05/14/2019 Ulcerative colitis Overview: History of [...] as of this encounter (statuses as of 08/08/2023) Resolved Problems Problem Noted Date Diagnosed Date [...] as of this encounter (statuses as of 08/08/2023) Immunizations Name Administration Dates Next Due Seasonal [...] money to get more. Never true 12/09/2022 [place] Depression Scale Answer Date Recorded [place] Depression Scale Total 0 01/23/2022 The thought [...] Care Team (Late st Contact Info) Description 09/06/2023 8:30 AM EST Office Visit Gynecology/Obstetrics [facility] [address] [place] [address] Alivia Kinsey CRNP [address] [place] [address] 09/10/2023 10:30 AM EST Office Visit Director Dietetics Department OB Maternal Medicine [facility] Susan Mattson [address] [place] [address] [address] [facility] [place] [address] Lauri Tucker MD [address] [place] [address] 09/10/2023 10:30 AM EST Imaging [facility] Susan Mattson [address] [place] [address] [address] [facility] [address] 12/12/2023 8:40 AM EDT Office Visit Rheumatology [place] [id number] [employer] [place] [address] Gildardo Johnson MD [facility] [place] [address] Pending Results Name Type Priority Associated Diagnoses Date /Time HEPATIC FUNCTION PANEL Lab Routine Autoimmune hepatitis (HCC) 08/08/2023 9:37 AM EST Scheduled Procedures Name Priority Associated Diagnoses Date/Ti me COLONOSCOPY FLEXIBLE PROXIMA L DIAGNOSTIC Recall Ulcerative colitis (HCC) Health Maintenance Due Date Last Done Comments COVID-19 Vaccine (#1) 01/20/1989 Pneumococcal Vaccine: Pediatrics (0 to 5 Years) and At-Risk Patients (6 to 64 Years) (1 - PCV) 1994 Depression Screening 05/24/2021 05/24/2020 Diabetes Screening 01/21/2026 01/21/2023, 0 01/21/2023, 11/30/2021, [...] as of this encounter Visit Diagnoses Diagnosis Autoimmune hepatitis (HCC) Autoimmune hepatitis documented in this encounter Advance Directives Latest Code Status on File Code Status Date Activated Date Inactivated Comments Full Code 05/14/2019 10:55 PM 05/19/2019 6:46 PM This order reflects the patients wishes and were consensually agreed upon. Question Answer Comments Discussion of Advance Directives occurred with: Patient Care Teams Posting Machine Operator Relationship Specialty Start Date End Date Eliseo Palmer MD [address] [place] [address] PCP - General Family Medicine 05/19/19 documented as of this encounter
--- OUTSIDE RECORDS SUMMARY | 2024-01-11 07:40 | External Medical Summary | Summary of Care ---
Author Name Unknown Organization [facility] Address [address] [place] [address] Phone [phone] Care Team Providers Care Student Finance Specialist Name Role Phone Eliseo Palmer MD Primary Care Provider + Encounter Details Date Type Department Care Team (Late st Contact Info) Description 10/11/2023 11:30 AM EST Office Visit Clinical Science Liaison OB Maternal Medicine [facility] Susan Mattosn [address] [place] [address] [address] [place], [place] [id number] Meagan Phelps, DO [address] [place] [address] Systemic lupus complicating (HCC)*; Antepartum multigravida of advanced maternal age; Ultrasound for screening for growth restriction; 26 weeks gestation of ; Other specified related conditions, second trimester Allergies No known active allergiesdocumented as of this encounter (statuses as of 10/11/2023) Medications Medication Sig Dispensed Refills Start Date [...] as of this encounter (statuses as of 10/11/2023) Active Problems Problem Noted Date Diagnosed Date [...] hepatitis 03/23/2021 Overview: 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 Patient had workup for jaundice and elevated LFT's. Liver biopsy findings were consistent with autoimmune hepatitis. Patient treated with Azathioprine and prednisone taper at the time. Follows routinely with Hepatology. Recent LFTs normal. [facility] recommends monitoring LFTs in . Latest [...] 05/12/2020 Overview: Diagnosed 2004; currently follows with [facility] Rheumatology. She reports stable [...] an increase in malformations or morbidity. The [place] [employer] Pediatrics classifies the drug as [...] as of this encounter (statuses as of 10/11/2023) Resolved Problems Problem Noted Date Diagnosed Date [...] as of this encounter (statuses as of 10/11/2023) Immunizations Name Administration Dates Next Due Seasonal [...] money to get more. Never true 12/09/2022 [place] Depression Scale Answer Date Recorded [place] Depression Scale Total 0 01/23/2022 The thought [...] Progress Notes * Meagan Phelps DO - 10/11/2023 11:31 AM EST Bri presented today at 26w4d for an ultrasound for the following indications: Systemic lupus complicating (HCC) Antepartum multigravida of advanced maternal age Ultrasound for screening for growth restriction 26 weeks gestation of Ultrasound summary: Patient presented at 26w 4d for growth assessment. Normal growth with EFW 1105 g at 80%ile. Normal GENEVA at 13.2 cm. Cephalic presentation. I reviewed the ultrasound [...] call with any questions. Meagan Phelps DO 10/11/2023 11:31 AM documented in this encounter Plan of Treatment Upcoming Encounters Date Type Department Care Team (Late st Contact Info) Description 10/24/2023 8:30 AM EDT [facility] [address] [place] [phone] [facility]ion[facility] balder[place] [address] [place] [address] 10/24/2023 9:00 AM EDT Office Visit Gynecology/Obstetrics Richy Carrion [address] [place] [address] Siobhan Purcell CRNP [address] [place] [address] 11/07/2023 8:00 AM EDT Imaging Maternal Medicine Imaging, Becca Carrion [address] [place] [address] 12/05/2023 8:00 AM EDT Imaging Maternal Medicine Imaging, Becca Carrion [address] [place] [address] 12/12/2023 8:40 AM EDT Office Visit Rheumatology [facility] [address] [facility] [place] [address] Gildardo Johnson MD [address] [place] [address] 01/02/2024 8:45 AM EDT Imaging Maternal Medicine Imaging, Becca Carrion [address] [place] [phone] Scheduled Orders Name Type Priority Associated Diagnoses Orde r Schedule MFM US PREG FOLLOW UP EACH FETUS Medical Imaging Routine Systemic lupus complicating (HCC) Antepartum multigravida of advanced maternal age Ultrasound for screening for growth restriction 26 weeks gestation of Other specified related conditions, second trimester 4 Occurrences starting 10/11/2023 until 04/12/2024 Scheduled Procedures Name Priority Associated Diagnoses Date/Ti me COLONOSCOPY FLEXIBLE PROXIMA L DIAGNOSTIC Recall Ulcerative colitis (HCC) Health Maintenance Due Date Last Done Comments Pneumococcal Vaccine: Pediatrics (0 to 5 Years) and At-Risk Patients (6 to 64 Years) (1 of 2 - PCV) 1994 Depression Screening 05/24/2021 05/24/2020 COVID-19 Vaccine ( - 2022-24 season) 2023 Diabetes Screening 01/21/2026 [...] restriction screening for growth retardation using ultrasonics 26 weeks gestation of state, incidental Other specified related conditions, second trimester documented in this encounter Advance Directives Latest Code Status on File Code Status Date Activated Date Inactivated Comments Full Code 05/14/2019 10:55 PM 05/19/2019 6:46 PM This order reflects the patients wishes and were consensually agreed upon. Question Answer Comments Discussion of Advance Directives occurred with: Patient Care Teams Student Finance Specialist Relationship Specialty Start Date End Date Eliseo Palmer MD [address] [place] [address] PCP - General Family Medicine 05/19/19 documented as of this encounter
--- OUTSIDE RECORDS SUMMARY | 2024-01-11 07:40 | External Medical Summary ---
Author Name Unknown Address Unknown Organization [id number]:[facility] [address] [facility] [place] [address] Laboratory Report Ordering Provider Test Date Status VIRYBACKER 10/24/2023 09:55:55 Final Observation Date Value Abnormality Reference (Units ) Status SYNC LEUKOCYTES IN BLOOD BY AUTOMATED COUNT 10/24/2023 09:55:55 7.49 4.00-10.80 (K/uL) Final Segs 10/24/2023 09:55:55 64.6 40.0-75.0 (%) Final Lymphs % 10/24/2023 09:55:55 26.7 18.0-42.0 (%) Final Monos 10/24/2023 09:55:55 5.2 1.0-11.0 (%) Final Eosinophils 10/24/2023 09:55:55 1.9 0.0-6.0 (%) Final Basos 10/24/2023 09:55:55 0.7 0.0-2.0 (%) Final Immature Granulocyte, Percent 10/24/2023 09:55:55 0.9 0.0-2.0 (%) Final Absolute Segs 10/24/2023 09:55:55 4.84 1.80-7.70 (K/uL) Final Lymphs, absolute 10/24/2023 09:55:55 2.00 1.00-4.80 (K/ul) Final Monos, Abs 10/24/2023 09:55:55 0.39 0.00-1.10 (K/uL) Final Eos, Abs 10/24/2023 09:55:55 0.14 0.00-0.70 (K/uL) Final Basos, Abs 10/24/2023 09:55:55 0.05 0.00-0.20 (K/uL) Final Immature Granulocytes, Number 10/24/2023 09:55:55 0.07 0.00-0.20 (K/uL) Final Performing Location [facility] [place] [address] [facility] [address]
--- OUTSIDE RECORDS SUMMARY | 2024-01-11 07:40 | External Medical Summary | Summary of Care ---
Author Name Unknown Organization [facility] Address [address] [place] [address] Phone [phone] Care Team Providers Care Manager Of Transportation Name Role Phone Eliseo Palmer MD Primary Care Provider + Encounter Details Date Type Department Care Team (Late st Contact Info) Description 07/26/2023 2:45 PM EST Office Visit Binder Selector OB Maternal Medicine [facility] Susan Mattson [address] [place] [address] [address] [place], [place] [id number] Meagan Phelps, DO [address] [place] [address] Systemic lupus complicating (HCC)*; Antepartum multigravida of advanced maternal age; 15 weeks gestation of Allergies No known active allergiesdocumented as of this encounter (statuses as of 07/26/2023) Medications Medication Sig Dispensed Refills Start Date [...] as of this encounter (statuses as of 07/26/2023) Active Problems Problem Noted Date Diagnosed Date [...] insurance coverage and cost ([place] [address]). 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 Patient had workup for jaundice and elevated LFT's. Liver biopsy findings were consistent with autoimmune hepatitis. Patient treated with Azathioprine and prednisone taper at the time. Follows routinely with Hepatology. Recent LFTs normal. [facility] recommends monitoring LFTs in . Latest [...] 05/12/2020 Overview: Diagnosed 2004; currently follows with [facility]umatology. She reports stable disease on [...] an increase in malformations or morbidity. The [place] [employer] Pediatrics classifies the drug as [...] with temporary GI tube (~2010). Follows [facility]. Stable on Mesalamine; denies recent flares. [...] as of this encounter (statuses as of 07/26/2023) Resolved Problems Problem Noted Date Diagnosed Date [...] as of this encounter (statuses as of 07/26/2023) Immunizations Name Administration Dates Next Due Seasonal [...] money to get more. Never true 12/09/2022 [place] Depression Scale Answer Date Recorded [place] Depression Scale Total 0 01/23/2022 The thought [...] of this encounter Progress Notes * Meagan Phelps, - 07/26/2023 3:18 PM EST Bri presented today at 15w4d for an ultrasound for the following indications: Systemic lupus complicating (HCC) Antepartum multigravida of advanced maternal age 15 weeks gestation of Ultrasound summary: Single live IUP at 15w 4d, scan consistent with dates. Early limited anatomy appears normal. I reviewed the ultrasound images. Bri was given the opportunity to meet with me if she had any questions. Please refer to the ultrasound report for additional details about today's ultrasound examination. RECOMMENDATIONS: Recommend follow up ultrasound with MFM in 4 weeks for anatomy survey secondary to above indications. See prior formal MFM consultation note. Thank you for allowing us to participate in the care of this patient. Please call with any questions. Meagan Phelps DO 07/26/2023 3:18 PM documented in this encounter Plan of Treatment Upcoming Encounters Date Type Department Care Team (Late st Contact Info) Description 08/08/2023 9:15 AM EST Office Visit Gynecology/Obstetrics [facility] [address] [place] [address] Backer, RACHID Grace [address] [place] [address] 09/10/2023 10:30 AM EST Office Visit Binder Selector OB Maternal Medicine [facility] Susan Mattson [address] [place] [address] [address] [facility] [address] Lauri Tucker MD [address] [place] [address] 09/10/2023 10:30 AM EST Imaging Maternal Medicine [facility] Susan Mattson [address] [place] [address] Dr [address] [place] [address] 12/12/2023 8:40 AM EDT Office Visit Rheumatology [facility] [place] [id number] [facility] [place] [address] Gildardo Johnson MD [email or web address] [facility] [place] [address] Scheduled Procedures Name Priority Associated Diagnoses Date/Ti [...] care Antepartum multigravida of advanced maternal age 15 weeks gestation of state, incidental documented in this encounter Advance Directives Latest Code Status on File Code Status Date Activated Date Inactivated Comments Full Code 05/14/2019 10:55 PM 05/19/2019 6:46 PM This order reflects the patients wishes and were consensually agreed upon. Question Answer Comments Discussion of Advance Directives occurred with: Patient Care Teams Manager Of Transportation Relationship Specialty Start Date End Date Eliseo Palmer MD [address] [place] [address] PCP - General Family Medicine 05/19/19 documented as of this encounter
--- OUTSIDE RECORDS SUMMARY | 2024-01-11 07:40 | External Medical Summary ---
Author Name Unknown Address Unknown Organization K01:LABORATORY [facility] - [address] [place] [address] Laboratory Report Ordering Provider Test Date Status SERGIO BETTS 10/24/2023 09:55:55 Final Observation Date Value Abnormality Reference (Units ) Status MYCODE SPECIMEN-SST 10/24/2023 09:55:55 Freezing of extracted DNA, whole blood and/or serum. Final Performing Location LABORATORY [facility] - [address] [place] [address]
--- OUTSIDE RECORDS SUMMARY | 2024-01-11 07:40 | External Medical Summary | Summary of Care ---
Author Name Unknown Organization [facility] Address [address] [place] [address] Phone [phone] Care Team Providers Care Bicycle Mechanic Name Role Phone Eliseo Palmer MD Primary Care Provider + Encounter Details Date Type Department Care Team (Late st Contact Info) Description 09/10/2023 10:30 AM EST Office Visit Turntable Man OB Maternal Medicine [facility] Susan Mattson [address] [place] [address] Dr [address] [place], [place] [id number] Lauri Tucker MD [address] [place] [address] Antepartum multigravida of advanced maternal age*; Autoimmune hepatitis (HCC); H/O migraine during ; Raynaud's disease without gangrene; Systemic lupus complicating (HCC); Ulcerative colitis without complications, unspecified location (HCC); Encounter for supervision of other normal , second trimester Allergies No known active allergiesdocumented as of this encounter (statuses as of 09/10/2023) Medications Medication Sig Dispensed Refills Start Date [...] as of this encounter (statuses as of 09/10/2023) Active Problems Problem Noted Date Diagnosed Date [...] hepatitis 03/23/2021 Overview: 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 Patient had workup for jaundice and elevated LFT's. Liver biopsy findings were consistent with autoimmune hepatitis. Patient treated with Azathioprine and prednisone taper at the time. Follows routinely with Hepatology. Recent LFTs normal. [facility] recommends monitoring LFTs in . Latest Reference [...] 05/12/2020 Overview: Diagnosed 2004; currently follows with [facility] Rheumatology. She reports stable disease on [...] an increase in malformations or morbidity. The [place] [employer] classifies the drug as [...] with temporary GI tube (~2010). Follows with [facility]. Stable on Mesalamine; denies recent flares. [...] as of this encounter (statuses as of 09/10/2023) Resolved Problems Problem Noted Date Diagnosed Date [...] as of this encounter (statuses as of 09/10/2023) Immunizations Name Administration Dates Next Due Seasonal [...] money to get more. Never true 12/09/2022 [place] Depression Scale Answer Date Recorded [place] Depression Scale Total 0 01/23/2022 The thought [...] as of this encounter Progress Notes * Lauri Tucker MD - 09/10/2023 10:17 AM EST MATERNAL MEDICINE VISIT Bri Malin is at 22w1d who presents to [facility] for an ultrasound and follow-up of her high risk . The patient is currently 22 weeks 1 day gestation with lupus, ulcerative colitis and autoimmune hepatitis, advanced maternal age and migraine headaches. She comes in for an evaluation of anatomy. Of note, she has a low risk noninvasive screen during this . She is being seen today by Maternal- Medicine for the following reasons: Problem List Items Addressed This Visit Ulcerative colitis (HCC) (Chronic) Relevant Orders [facility] US PREG FOLLOW UP EACH FETUS Autoimmune hepatitis (HCC) (Chronic) I reviewed her most recent liver function tests with her on August 08. She states that her autoimmune hepatitis is under good control. She has not had any exacerbations during this . Relevant Orders [facility] US PREG FOLLOW UP EACH FETUS Systemic lupus complicating (HCC) (Chronic) Relevant Orders [facility] US PREG FOLLOW UP EACH FETUS Raynaud's disease without gangrene On July 10, she had negative SSA and SSB antibodies. Relevant Orders [facility] US PREG FOLLOW UP EACH FETUS Antepartum multigravida of advanced maternal age - Primary I reviewed ultrasound with her. The anatomy that was visualized unremarkable and the amnioticfluid volume is subjectively normal. The fetus is in the breech presentation and the biometryis appropriate for gestational age. Reviewed low risk noninvasive screen in light of her normal ultrasound findings. Relevant Orders [facility] US PREG FOLLOW UP EACH FETUS H/O migraine during She states that her migraine headaches are improving. She states that she has not take acetaminophen if she has a migraine headache. We discussed taking magnesium and vitamin B2 as prophylaxis for migraine headaches. I also told herthat she can take Excedrin tension Headache as it has only acetaminophen and caffeine in it. Relevant Orders [facility] US PREG FOLLOW UP EACH FETUS Other Visit Diagnoses Encounter for supervision of other normal , second trimester Relevant Orders [facility] US PREG FOLLOW UP EACH FETUS We reviewed today's ultrasound findings. (For full report, please refer to ultrasound report provided separately). Ms. Malin's questions were answered to her satisfaction. Ms. Malin was instructed to notify her primary solar electric practitioner if she felt regular contractions (approximately every 10 mins), leaking of fluid, vaginal bleeding or if movement decreased. RECOMMENDATIONS: Recommend surveillance starting at 32 weeks secondary to SLE. Recommend follow up ultrasound with MFM in 4 weeks for growth secondary to SLE. Recommend delivery at 39 weeks gestation. Thank you for allowing us to participate in the care of this patient. Please call with any questions. Lauri Tucker MD 09/10/2023 10:17 AM documented in this encounter Miscellaneous Notes * Assessment & Plan Note - Lauri Tucker MD - 09/10/2023 11:59 AM EST Associated Problem(s): H/O migraine during She states that her migraine headaches are improving. She states that she has not take acetaminophen if she has a migraine headache. We discussed taking magnesium and vitamin B2 as prophylaxis for migraine headaches. I also told herthat she can take Excedrin tension Headache as it has only acetaminophen and caffeine in it. * Assessment & Plan Note - Lauri Tucker MD - 09/10/2023 11:52 AM EST Associated Problem(s): Raynaud's disease without gangrene On July 10, she had negative SSA and SSB antibodies. * Assessment & Plan Note - Lauri Tucker MD - 09/10/2023 11:52 AM EST Associated Problem(s): Autoimmune hepatitis (HCC) I reviewed her most recent liver function tests with her on August 08. She states that her autoimmune hepatitis is under good control. She has not had any exacerbations during this . * Assessment & Plan Note - Lauri Tucker MD - 09/10/2023 11:51 AM EST Associated Problem(s): Antepartum multigravida of advanced maternal age I reviewed ultrasound with her. The anatomy that was visualized unremarkable and the amnioticfluid volume is subjectively normal. The fetus is in the breech presentation and the biometryis appropriate for gestational age. Reviewed low risk noninvasive screen in light of her normal ultrasound findings. documented in this encounter Plan of Treatment Upcoming Encounters Date Type Department Care Team (Late st Contact Info) Description 10/04/2023 8:30 AM EST Office Visit Gynecology/Obstetrics Richy Carrion [address] [place] [address] BackerAlivia CRNP [address] [place] [address] 10/11/2023 11:30 AM EST Office Visit [facility] Susan Mattson [address] [place] [address] Dr [address] [facility] [address] Meagan Phelps, DO [address] [place] [address] 10/11/2023 11:30 AM EST Imaging Maternal Medicine [facility] Susan Mattson [address] [place] [address] Dr [address] [place] [address] 11/07/2023 8:00 AM EDT Imaging Maternal Medicine Imaging, Becca Carrion [address] [place] [address] 12/05/2023 8:00 AM EDT [facility] [address] [place] [address] 12/12/2023 8:40 AM EDT Office Visit Rheumatology [place] [id number] [facility] [place] [address] Gildardo Johnson MD [facility] [place] [address] 01/02/2024 8:45 AM EDT Imaging Maternal Medicine Imaging, [address] [place] [address] Scheduled Orders Name Type Priority Associated Diagnoses Orde r Schedule MFM US PREG FOLLOW UP EACH FETUS Medical Imaging Routine Antepartum multigravida of advanced maternal age Autoimmune hepatitis (HCC) H/O migraine during Raynaud's disease without gangrene Systemic lupus complicating (HCC) Ulcerative colitis without complications, unspecified location (HCC) Encounter for supervision of other normal , second trimester 5 Occurrences starting 09/10/2023 until 10/10/2023 Scheduled Procedures Name Priority Associated Diagnoses Date/Ti [...] of this encounter Visit Diagnoses Diagnosis Antepartum multigravida of advanced maternal age- Primary Autoimmune hepatitis (HCC) Autoimmune hepatitis H/O migraine during Supervision of other high-risk Raynaud's disease without gangrene Systemic lupus complicating (HCC) Other current maternal conditions classifiable elsewhere, complicating , childbirth, or the puerperium, unspecified as to episode of care Ulcerative colitis without complications, unspecified location (HCC) Encounter for supervision of other normal , second trimester documented in this encounter Advance Directives Latest Code Status on File Code Status Date Activated Date Inactivated Comments Full Code 05/14/2019 10:55 PM 05/19/2019 6:46 PM This order reflects the patients wishes and were consensually agreed upon. Question Answer Comments Discussion of Advance Directives occurred with: Patient Care Teams Bicycle Mechanic Relationship Specialty Start Date End Date Eliseo Palmer MD [address] [place] [address] PCP - General Family Medicine 05/19/19 documented as of this encounter
--- OUTSIDE RECORDS SUMMARY | 2024-01-11 07:40 | External Medical Summary | Summary of Care ---
Author Name Unknown Organization [facility] Address [address] [place] [address] Phone [phone] Care Team Providers Care Automotive General Sales Manager Name Role Phone Eliseo Palmer MD Primary Care Provider + Reason for Visit * Reason Onset Date Comments Referral 06/10/2023 plaquenil, mesla mine. history of lupus and UC. AMA Encounter Details Date Type Department Care Team ([facility] Contact Info) Description 06/10/2023 Telephone Securities Adviser Obstetrics Maternal Medicine, [place] [address] [place], [place] [id number] [place], Nurse Securities Adviser [facility] [address], [place] [phone] Referral (plaquenil, meslamine. history of... Allergies No known active allergiesdocumented as of this encounter (statuses as of 09/09/2023) Medications Medication Sig Dispensed Refills Start Date [...] EVERY DAY 90 Tablet 1 11/29/2022 Active documented as of this encounter (statuses as of 09/09/2023) Active Problems Problem Noted Date Diagnosed Date [...] insurance coverage and cost [place] [address]). 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 Patient had workup for jaundice and elevated LFT's. Liver biopsy findings were consistent with autoimmune hepatitis. Patient treated with Azathioprine and prednisone taper at the time. Follows routinely with Hepatology. Recent LFTs normal. [facility] recommends monitoring LFTs in . Latest [...] Recommend screening for presence of SSA/SSB antibodies. [facility] will order this and relay results [...] as of this encounter (statuses as of 09/09/2023) Resolved Problems Problem Noted Date Diagnosed Date [...] as of this encounter (statuses as of 09/09/2023) Immunizations Name Administration Dates Next Due Seasonal [...] drink = 0.6 oz pur e alcohol) occ PHQ-2 Answer Date Recorded PHQ-2 Score 0 [...] money to get more. Never true 12/09/2022 [place] Depression Scale Answer Date Recorded [place] Depression Scale Total 0 01/23/2022 The thought [...] No 05/14/2019 documented as of this encounter Miscellaneous Notes * Telephone Encounter - Gale Bosch OSA - 06/12/2023 8:41 AM EDT Appointments scheduled * Telephone Encounter - Gale Bosch OSA - 06/10/2023 3:20 PM EDT Called patient, no answer, left VM, sent MyG * Telephone Encounter - Carina Oliveros LPN - 06/10/2023 3:07 PM EDT Records Reviewed & Dating Scan Complete Estimated Date of Delivery: 01/13/24 Please schedule for 45 MINUTE CONSULT SIMPLE MEDICAL WITH SET UP MECHANIC COIL WINDING MACHINES, in time frame of next available or atpatient's earliest convenience at location [facility] with the indication of plaquenil, meslamine. history of lupus and UC. AMA . Please schedule limited anatomy between 77g2s-82l4e weeks (07/18/23-08/03/23) Please schedule anatomy between 19-21 weeks (09/08/23-09/22/23). Referring Provider: Siobhan Hogue Sent to scheduling pool documented in this encounter Plan of Treatment Upcoming Encounters Date Type Department Care Team (Late st Contact Info) Description 09/10/2023 10:30 AM EST Office Visit Securities Adviser OB Maternal Medicine [facility] Susan Mattson [address] [place] [address] [address] [place] [address] Lauri Tucker MD [address] [facility] [address] 09/10/2023 10:30 AM EST Imaging Maternal Medicine [facility] Susan Mattson [address] [place] [address] [address] [place] [address] 10/04/2023 8:30 AM EST Office Visit Gynecology/Obstetrics [facility] [address] [place] [address] Alivia Kinsey CRNP [address] [place] [address] 12/12/2023 8:40 AM EDT Office Visit Rheumatology [facility] [address] [facility] [place] [address] Gildardo Johnson MD [address] [place] [address] Scheduled Procedures Name Priority Associated Diagnoses Date/Ti [...] Advance Directives occurred with: Patient Care Teams Automotive General Sales Manager Relationship Specialty Start Date End Date Eliseo Palmer MD [address] [place] [address] PCP - General Family Medicine 05/19/19 documented as of this encounter
--- OUTSIDE RECORDS SUMMARY | 2024-01-11 07:40 | External Medical Summary ---
Author Name Unknown Address Unknown Organization K01:[facility] [place] [address] [place] [address] Laboratory Report Ordering Provider Test Date Status VIRYBACKER 10/24/2023 09:55:55 Final Observation Date Value Abnormality Reference (Units ) Status WBC, Total 10/24/2023 09:55:55 7.49 4.00-10.8 0 (K/uL) Final RBC 10/24/2023 09:55:55 3.57 3.85-5.15 (M/uL) Final Hemoglobin 10/24/2023 09:55:55 11.2 Below low normal 12 .0-15.3 (g/dL) Final Anemia reflex testing trigge rs on a HGB < 12.0 for Females and HGB < 13.0 for Males in accordance with the WHO Anemia Guidelines
Anemia reflex testing triggers on a HGB < 12.0 for Females and HGB < 13.0 for Males in accordance with the WHO Anemia Guidelines HCT 10/24/2023 09:55:55 33.5 Below low normal 36. 0-45.2 (%) Final MCV 10/24/2023 09:55:55 93.8 81.5-97.5 (fL) Final MCH 10/24/2023 09:55:55 31.4 27.0-34.0 (pg) Final MCHC 10/24/2023 09:55:55 33.4 32.0-36.0 (g/dL) Final RDW 10/24/2023 09:55:55 13.5 11.5-15.5 (%) Final Platelets 10/24/2023 09:55:55 208 140-400 (K /uL) Final MPV 10/24/2023 09:55:55 10.2 6.6-11.1 ( fL) Final Nucleated erythrocytes/100 leukocytes [Ratio] in Blood by Automated count 10/24/2023 09:55:55 0 <=0 (/100 WBCs) Final Performing Location [facility] - [address] [facility] [address]
--- OUTSIDE RECORDS SUMMARY | 2024-01-11 07:40 | External Medical Summary | Summary of Care ---
Author Name Unknown Organization [facility] Address [address] [place] [address] Phone [phone] Care Team Providers Care Testing Director Name Role Phone Eliseo Palmer MD Primary Care Provider + Reason for Visit * Reason Comments Return Visit Encounter Details Date Type Department Care Team (Late st Contact Info) Description 09/06/2023 8:30 AM EST Office Visit Gynecology/Obstetric s Richy Carrion [address] [place] [address] Alivia Kinsey CRNP [address] [place] [address] High-risk in second trimester*; Ulcerative colitis without complications, unspecified location (HCC); Systemic lupus complicating (HCC); Autoimmune hepatitis (HCC); Antepartum multigravida of advanced maternal age; History of gestational diabetes in prior , currently ; H/O migraine during Allergies No known active allergiesdocumented as of this encounter (statuses as of 09/06/2023) Medications Medication Sig Dispensed Refills Start Date [...] as of this encounter (statuses as of 09/06/2023) Active Problems Problem Noted Date Diagnosed Date [...] insurance coverage and cost ([place] [address]). 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 Patient had workup for jaundice and elevated LFT's. Liver biopsy findings were consistent with autoimmune hepatitis. Patient treated with Azathioprine and prednisone taper at the time. Follows routinely with Hepatology. Recent LFTs normal. [facility] recommends monitoring LFTs in . Latest [...] 05/12/2020 Overview: Diagnosed 2004; currently follows with [facility] Rheumatology. She reports stable disease on [...] an increase in malformations or morbidity. The [place] [employer] classifies the drug as [...] as of this encounter (statuses as of 09/06/2023) Resolved Problems Problem Noted Date Diagnosed Date [...] as of this encounter (statuses as of 09/06/2023) Immunizations Name Administration Dates Next Due Seasonal [...] money to get more. Never true 12/09/2022 [place] Depression Scale Answer Date Recorded [place] Depression Scale Total 0 01/23/2022 The thought [...] Sign Reading Time Taken Comments Blood Pressure 98/58 09/06/2023 8:26 AM EST Pulse - - Temperature - - Respiratory Rate - - Oxygen Saturation - - Inhaled Oxygen Concentration - - Weight 73.9 kg (163 lb) 09/06/2023 8:26 AM EST Height - - Body Mass Index 29.81 06/10/2023 1:46 PM EDT documented in this [...] as of this encounter Progress Notes * Alivia Kinsey CRNP - 09/06/2023 8:29 AM EST 21w4d Doing well, has anatomy scan with M next week. Had normal LFTs at last visit. + movement. No cramping or bleeding. Return in 4 weeks. RACHID Banda documented in this encounter Nursing Notes * Henna Sales LPN - 09/06/2023 8:27 AM EST 21w4d Denies vaginal bleeding/rom + movement No new concerns documented in this encounter Plan of Treatment Upcoming Encounters Date Type Department Care Team (Late st Contact Info) Description 09/10/2023 10:30 AM EST Office Visit Plastics Fabricator And Assembler OB Maternal Medicine [facility] Susan Mattson [address] [place] [address] [address] [place] [address] Lauri Tucker MD [address] [place] [address] 09/10/2023 10:30 AM EST Imaging Maternal Medicine [facility] Susan Mattson [address] [place] [address] [address] [place] [address] 10/04/2023 8:30 AM EST Office Visit Gynecology/Obstetrics [facility] [address] [place] [address] Alivia Kinsey CRNP [address] [place] [address] 12/12/2023 8:40 AM EDT Office Visit Rheumatology [facility] [place] [address] [facility] [place] [address] Gildardo Johnson MD [address] [place] [address] Scheduled Procedures Name Priority Associated Diagnoses Date/Ti [...] High-risk in second trimester- Primary Ulcerative colitis without complications, unspecified [...] Advance Directives occurred with: Patient Care Teams Testing Director Relationship Specialty Start Date End Date Eliseo Palmer MD [address] [place] [address] PCP - General Family Medicine 05/19/19 documented as of this encounter
--- OUTSIDE RECORDS SUMMARY | 2024-01-11 07:40 | External Medical Summary ---
Author Name Unknown Address Unknown Organization K01:[facility]AT[facility] - [address] [place] [address] Laboratory Report Ordering Provider Test Date Status SERGIO BETTS 10/24/2023 09:55:55 Final Observation Date Value Abnormality Reference (Units ) Status MYCODE SPECIMEN-SST 10/24/2023 09:55:55 Freezing of extracted DNA, whole blood and/or serum. Final Performing Location [facility] - [address] [place] [address]
--- OUTSIDE RECORDS SUMMARY | 2024-01-11 07:40 | External Medical Summary | Summary of Care ---
Author Name Unknown Organization [facility] Address [address] [place] [address] Phone [phone] Care Team Providers Care Content Strategy Lead Name Role Phone Eliseo Palmer MD Primary Care Provider + Reason for Visit * Reason Comments Return Visit Follow Up Encounter Details Date Type Department Care Team (Late st Contact Info) Description 10/24/2023 9:00 AM EDT Office Visit Gynecology/Obstetric s Richy Carrion [address] [place] [address] Siobhan Purcell CRNP [address] [place] [address] High-risk in third trimester*; Ulcerative pancolitis without complication (HCC); Systemic lupus complicating (HCC); History of gestational diabetes in prior , currently ; Autoimmune hepatitis (HCC); Antepartum multigravida of advanced maternal age; H/O migraine during ; Need for prophylactic vaccination with combined qtdznrgevu-zfvnlhy-sg rtussis (DTP) vaccine Allergies No known active allergiesdocumented as of [...] hepatitis 03/23/2021 Overview: [facility] Patient had workup for jaundice and elevated LFT's. Liver biopsy findings were consistent with autoimmune hepatitis. Patient treated with Azathioprine and prednisone taper at the time. Follows routinely with Hepatology. Recent LFTs normal. [facility] recommends monitoring LFTs in . Latest [...] 05/12/2020 Overview: Diagnosed 2004; currently follows with [facility] Rheumatology. She reports stable disease on [...] an increase in malformations or morbidity. The [place] [employer] classifies the drug as [...] money to get more. Never true 12/09/2022 [place] Depression Scale Answer Date Recorded [place] Depression Scale Total 0 01/23/2022 The thought [...] Sign Reading Time Taken Comments Blood Pressure 88/60 10/24/2023 9:01 AM EDT Pulse - - Temperature - - Respiratory Rate - - Oxygen Saturation - - Inhaled Oxygen Concentration - - Weight 76.4 kg (168 lb 6.4 oz) 10/24/2023 9:01 A M EDT Height 157.5 cm (5' 2") 10/24/2023 9:01 AM EDT Body Mass Index 30.8 10/24/2023 9:01 AM EDT documented in this [...] Progress Notes * Siobhan Purcell CRNP - 10/24/2023 9:23 AM EDT 28w3d No concerns. Baby is active. No contractions, bleeding, LOF. Glucola, TDAP today. Aware to start NSTs twice weekly at 32w, delivery by EDC. RACHID Esquivel documented in this encounter Nursing Notes * Shanna Crowder MED ASSIST - 10/24/2023 9:04 AM EDT No complaints No bleeding/discharge Feeling baby moving No headaches No abdominal pain No nausea or vomiting. documented in this encounter Plan of Treatment Upcoming Encounters Date Type Department Care Team (Late st Contact Info) Description 11/06/2023 8:15 AM EDT Office Visit Gynecology/Obstetrics Richy Carrion [address] [place] [address] Siobhan Purcell CRNP [address] [place] [address] 11/07/2023 8:00 AM EDT Imaging Maternal Medicine Imaging, Becca Carrion [address] [place] [phone] 12/05/2023 8:00 AM EDT Imaging Maternal Medicine Imaging, Becca Carrion [address] [place] [phone] 12/12/2023 8:40 AM EDT Office Visit Rheumatology [place] [address] [place] [address] Gildardo Johnson MD [address] [place] [address] 01/02/2024 8:45 AM EDT Imaging Maternal Medicine Imaging, Becca Carrion [address] [place] [phone] Scheduled Procedures Name Priority Associated Diagnoses Date/Ti me COLONOSCOPY FLEXIBLE PROXIMA L DIAGNOSTIC Recall Ulcerative colitis (HCC) Health Maintenance Due Date Last Done Comments Pneumococcal Vaccine: Pediatrics (0 to 5 Years) and At-Risk Patients (6 to 64 Years) (1 of 2 - PCV) 1994 Depression Screening 05/24/2021 05/24/2020 COVID-19 Vaccine ( - 2022- season) 2023 Diabetes Screening 01/21/2026 01/21/2023, 0 [...] puerperium, unspecified as to episode of care History of gestational diabetes in prior , currently with other poor obstetric history Autoimmune hepatitis (HCC) Autoimmune hepatitis Antepartum multigravida of advanced maternal age H/O migraine during Supervision of other high-risk Need for prophylactic vaccination with combined ivjdwafxbp-odomkgw-qlontmhot (DTP) vaccine documented in this encounter Advance Directives Latest Code Status on File Code Status Date Activated Date Inactivated Comments Full Code 05/14/2019 10:55 PM 05/19/2019 6:46 PM This order reflects the patients wishes and were consensually agreed upon. Question Answer Comments Discussion of Advance Directives occurred with: Patient Care Teams Content Strategy Lead Relationship Specialty Start Date End Date Eliseo Palmer MD [address] [place] [address] PCP - General Family Medicine 05/19/19 documented as of this encounter
--- OUTSIDE RECORDS SUMMARY | 2024-01-11 07:40 | External Medical Summary ---
Author Name Unknown Address Unknown Organization [id number]:[facility] [address] [place] [address] Laboratory Report Ordering Provider Test Date Status VIRYDIETER PAIZ 10/24/2023 09:55:55 Final Observation Date Value Abnormality Reference (Units ) Status Ferritin 10/24/2023 09:55:55 16 13-150 (ng /mL) Final Performing Location [facility] - [address] [place] [address]
--- OUTSIDE RECORDS SUMMARY | 2024-01-11 07:40 | External Medical Summary ---
Author Name Unknown Address Unknown Organization [id number] [place] [address] [facility] [address] Laboratory Report Ordering Provider Test Date Status DIETER BAIRES 10/24/2023 09:55:55 Final Observation Date Value Abnormality Reference (Units ) Status Treponema pallidum Ab [Presence] in Serum by Immunoassay 10/24/2023 09:55:55 Nonreactive Nonreactive Final No serologic evidence of syp hilis. No additional testing clinicially indicated at this time. Consider repeat testing in 2-4 weeks if acute or primary syphilis is suspected. Performing Location [facility] [place] [address] [place] [address]
--- OUTSIDE RECORDS SUMMARY | 2024-01-11 07:40 | External Medical Summary ---
Author Name Unknown Address Unknown Organization [id number]:[facility] [place] [address] [place] [address] Laboratory Report Ordering Provider Test Date Status DIETER BAIRES 10/24/2023 09:55:55 Final Observation Date Value Abnormality Reference (Units ) Status Vitamin B12 10/24/2023 09:55:55 [phone] (pg/mL) Final Performing Location [facility] - [address] [place] [address]
--- OUTSIDE RECORDS SUMMARY | 2024-01-11 07:40 | External Medical Summary ---
Author Name Unknown Address Unknown Organization K0G:[facility] - [address] [place] [address] Laboratory Report Ordering Provider Test Date Status HARRIS BAIRESCASSIA 10/24/2023 09:55:55 Final Observation Date Value Abnormality Reference (Units ) Status Glucose [Moles/volume] in Serum or Plasma --1 hour post 50 g glucose PO 10/24/2023 09:55:55 128 70-129 (mg/dL) Final Performing Location [facility] [facility] - [address] [place] [address]
--- OUTSIDE RECORDS SUMMARY | 2024-01-11 07:40 | External Medical Summary ---
Author Name Unknown Address Unknown Organization K0G:[facility] - [address] [place] [address] Laboratory Report Ordering Provider Test Date Status DIETER BAIRES 10/24/2023 09:55:55 Final Observation Date Value Abnormality Reference (Units ) Status Albumin 10/24/2023 09:55:55 3.6 Below low normal 3.8-5.0 (g/dL) Final AST (Aspartate aminotransferase) 10/24/2023 09:55:55 10 10-35 (U/L) Final Alk Phos 10/24/2023 09:55:55 80 35-130 (U/L) Final ALT (Alanine aminotransferase) 10/24/2023 09:55:55 10 10-35 (U/L) Final Bilirubin, Total 10/24/2023 09:55:55 0.2 <=1.2 (mg/dL) Final Bilirubin, Direct 10/24/2023 09:55:55 <0.2 0.0-0.3 (mg/dL) Final Protein 10/24/2023 09:55:55 6.5 6.0-8.3 (g/dL) Final Performing Location [facility] - [address] [place] [address]
--- OUTSIDE RECORDS SUMMARY | 2024-01-11 07:40 | External Medical Summary | Summary of Care ---
Author Name Unknown Organization [facility] Address [address] [place] [address] Phone [phone] Care Team Providers Care Director Of Strategic Programs Name Role Phone Eliseo Palmer MD Primary Care Provider + Reason for Visit * Reason Comments Return Visit Encounter Details Date Type Department Care Team (Late st Contact Info) Description 08/08/2023 9:15 AM EST Office Visit Gynecology/Obstetric s Richy Carrion [address] [place] [address] Alivia Kinsey CRNP [address] [facility] [place] [address] High-risk in second trimester*; Ulcerative colitis without [...] insurance coverage and cost ([place] [address]). Patient aware not all insurances cover this [...] hepatitis 03/23/2021 Overview: I [facility] from [facility]. Patient had workup for jaundice and elevated LFT's. Liver biopsy findings were consistent with autoimmune hepatitis. Patient treated with Azathioprine and prednisone taper at the time. Follows routinely with Hepatology. Recent LFTs normal. [facility] recommends monitoring LFTs in . Latest [...] 05/12/2020 Overview: Diagnosed 2004; currently follows with [facility] Rheumatology. She reports stable disease on Plaquenil [...] money to get more. Never true 12/09/2022 [place] Depression Scale Answer Date Recorded [place] Depression Scale Total 0 01/23/2022 The thought [...] Sign Reading Time Taken Comments Blood Pressure 100/60 08/08/2023 9:18 AM EST Pulse - - Temperature - - Respiratory Rate - - Oxygen Saturation - - Inhaled Oxygen Concentration - - Weight 71.7 kg (158 lb) 08/08/2023 9:18 AM EST Height - - Body Mass Index 28.9 06/10/2023 1:46 PM EDT documented in this [...] Progress Notes * Alivia Kinsey CRNP - 08/08/2023 9:18 AM EST 17w3d Possibly feeling flutters. No bleeding or cramping. Followed by MFM, planning anatomy scan there. Declines MSAFP. Recheck LFTs today. Return in 4 weeks. RACHID Banda * [employer] LPN - 08/08/2023 9:17 AM EST 17w3d Denies vaginal bleeding/rom + movement Anatomy with MFM Declines MSAFP documented in this encounter Plan of Treatment Upcoming Encounters Date Type Department Care Team (Late st Contact Info) Description 08/08/2023 10:10 AM EST [facility] [address] [place] [phone] Ifrah Carrion [address] [place] [address] Autoimmune hepatitis (HCC) 09/06/2023 8:30 AM EST Office Visit Gynecology/Obstetric s Richy Carrion [address] [place] [address] Alivia Kinsey CRNP [address] [facility] [place] [address] 09/10/2023 10:30 AM EST Office Visit Risk Manager OB Maternal Medicine [facility] Susan Mattson [address] [place] [address] Dr [address] [facility] [address] Lauri Tucker MD [address] [place] [address] 09/10/2023 10:30 AM EST Imaging Maternal Medicine [facility] Susan Mattson [address] [place] [address] Dr [address] [facility] [address] 12/12/2023 8:40 AM EDT Office Visit Rheumatology [place] [phone] [place] [address] Gildardo Johnson MD [address] [place] [address] Pending Results Name Type Priority Associated Diagnoses Date /Time HEPATIC FUNCTION PANEL Lab Routine Autoimmune hepatitis (HCC) 08/08/2023 9:37 AM EST Scheduled Orders Name Type Priority Associated Diagnoses Orde r Schedule HEPATIC FUNCTION PANEL Lab Routine Autoimmune hepatitis (HCC) Expected: 08/08/2023 (Approximate), Expires: 08/08/2024 Scheduled Procedures Name Priority Associated Diagnoses Date/Ti [...] H/O migraine during Supervision of other high-risk Autoimmune hepatitis (HCC) Autoimmune hepatitis documented in this encounter Advance Directives Latest Code Status on File Code Status Date Activated Date Inactivated Comments Full Code 05/14/2019 10:55 PM 05/19/2019 6:46 PM This order reflects the patients wishes and were consensually agreed upon. Question Answer Comments Discussion of Advance Directives occurred with: Patient Care Teams Director Of Strategic Programs Relationship Specialty Start Date End Date Eliseo Palmer MD [address] [facility] [place] [address] PCP - General Family Medicine 05/19/19 documented as of this encounter
--- OUTSIDE RECORDS SUMMARY | 2024-01-11 07:40 | External Medical Summary ---
Author Name Unknown Address Unknown Organization K01:[facility] [place] [address] [place] [address] Laboratory Report Ordering Provider Test Date Status DIETER BAIRES 10/24/2023 09:55:55 Final Observation Date Value Abnormality Reference (Units ) Status Iron 10/24/2023 09:55:55 45 33-151 (ug/dL) Final Iron-binding capacity 10/24/2023 09:55:55 437 Above high normal 250-425 (ug/dL) Final Transferrin Sat % 10/24/2023 09:55:55 10 Below low normal 15-55 (%) Final Performing Location [facility] [place] [address] [place] [address]
--- OUTSIDE RECORDS SUMMARY | 2024-01-11 07:40 | External Medical Summary ---
Author Name Unknown Address Unknown Organization K01:[facility] - [address] [place] [address] Laboratory Report Ordering Provider Test Date Status HARRIS BAIRESCASSIA 10/24/2023 09:55:55 Final Observation Date Value Abnormality Reference (Units ) Status TSH 10/24/2023 09:55:55 1.79 0.27-4.20 (uIU/mL) Final Performing Location [facility] - [address] [place] [address]
[2024-01-11] MEDS ORDERED: PRENATAL VITAMIN 1 TAB PO SCH (08:00)
[2024-01-11] MEDS: FERROUS SULFATE 325 MG TAB PO SCH (08:21)
[2024-01-11] MEDS: DOCUSATE SODIUM 100 MG CAP PO SCH (08:21)
[2024-01-11] MEDS: PRENATAL VITAMIN 1 TAB PO SCH (08:21)
--- NOTE | 2024-01-11 10:38 | Obstetrical Progress Note ---
Date of Service January 11, 2024 Assessment & Plan Admission and Anticipated Discharge Date Admission Date: January 10, 2024 Subjective Patient is seen and examined. She feels well, no complaints. Ambulating without dizziness Voiding without difficulty Tolerating regular diet with out N&V Bleeding is minimal No fever/ chills/ CP/ SOB/ N&V/ Leg pain Breast feeding without problems Vital Signs Height Weight Body Mass Index Blood Pressure Blood Pressure Position Temperature Temperature Source 5 ft 2 in 80.739 kg 32.5 96/57 L Semi-fowlers 36.7 C Oral 01/10/24 17:22 01/10/24 17:22 01/10/24 08:09 01/11/24 07:56 01/11/24 07:56 01/11/24 07:56 01/11/24 07:56 Pulse Rate Respiratory Rate Pulse Oximetry 70 18 97 01/11/24 07:56 01/11/24 07:56 01/10/24 23:07 Lab Results 01/10/24 01/10/24 01/10/24 Range/Units 09:24 09:27 22:57 WBC 7.43 (4.8-10.8) K/ul RBC 4.23 (4.20-5.40) M/uL Hgb 11.5 L (12.0-16.0) g/dl Hct 34.2 L (37.0-47.0) % MCV 80.9 (80.0-100.0) fL MCH 27.2 (25.0-34.0) pg MCHC 33.6 (32.0-36.0) g/dL RDW Std Deviation 41.4 (36.4-46.3) fL RDW Coeff of Raf 14.1 (11.5-14.5) % Plt Count 216 (130-400) K/uL MPV 10.6 (9.4-12.4) fL Cord VBG pH 7.25 (7.20-7.44) Cord VBG pCO2 41 (30.4-57.2) mmHg Cord VBG pO2 23 (14.1-43.3) mmHg Cord VBG HCO3 18 L (18.4-26.8) mmol/L Cord VBG Base Excess -8.8 L (-7.7-1.9) mEq/L Cord VBG O2 Sat < 60.0 (<68) % Blood Gas Comments HARPER Blood Type O Positive Antibody Screen NEGATIVE Draw and Hold Cancelled 01/11/24 Range/Units 05:43 WBC 17.56 H D (4.8-10.8) K/ul RBC 4.01 L (4.20-5.40) M/uL Hgb 10.7 L (12.0-16.0) g/dl Hct 32.8 L (37.0-47.0) % MCV 81.8 (80.0-100.0) fL MCH 26.7 (25.0-34.0) pg MCHC 32.6 (32.0-36.0) g/dL RDW Std Deviation 41.8 (36.4-46.3) fL RDW Coeff of Raf 14.2 (11.5-14.5) % Plt Count 211 (130-400) K/uL MPV 11.2 (9.4-12.4) fL Cord VBG pH (7.20-7.44) Cord VBG pCO2 (30.4-57.2) mmHg Cord VBG pO2 (14.1-43.3) mmHg Cord VBG HCO3 (18.4-26.8) mmol/L Cord VBG Base Excess (-7.7-1.9) mEq/L Cord VBG O2 Sat (<68) % Blood Gas Comments Blood Type Antibody Screen Draw and Hold PE: General: Alert, orientedx3, NAD Abd: soft, NT, fundus firm, below Umbilicus Perineum intact, Lochia rubra minimal Ext; NT, no edema AP: 33 yo s/p , ppd# 1 VSS Afebrile doing well Continue routine care All questions were answered D/C home tomorrow Results & Data Vital Signs (Past 12 Hours) Vital Signs Temp Pulse Pulse Resp BP BP Pulse Ox 01/11/24 07:56 36.7 C 70 18 96/57 L 01/11/24 02:58 37.1 C 79 15 104/63 01/11/24 02:00 37.3 C 18 01/11/24 01:42 64 107/61 01/11/24 01:37 18 01/11/24 01:22 86 91/62 L 01/11/24 01:18 82 105/62 01/11/24 01:08 86 108/63 01/11/24 00:59 83 115/67 01/11/24 00:49 89 109/64 01/11/24 00:45 18 01/11/24 00:40 81 114/39 L 01/11/24 00:28 86 102/61 01/11/24 00:18 83 106/61 01/11/24 00:15 18 01/11/24 00:08 81 109/63 01/11/24 00:00 18 01/10/24 23:58 76 103/58 L 01/10/24 23:48 77 110/60 01/10/24 23:45 18 01/10/24 23:38 79 105/58 L 01/10/24 23:30 18 01/10/24 23:28 81 102/56 L 01/10/24 23:18 88 100/58 L 01/10/24 23:15 37.0 C 18 01/10/24 23:09 100 H 110/56 L 01/10/24 23:07 93 H 97 01/10/24 23:04 90 115/56 L 01/10/24 23:02 95 H 96 01/10/24 23:00 37.0 C 01/10/24 22:57 105 H 97 01/10/24 22:52 92 H 90 01/10/24 22:50 102 H 96 01/10/24 22:45 95 01/10/24 22:45 89 01/10/24 22:45 86 91 01/10/24 22:40 86 97 01/10/24 22:39 92 H 93 O2 Del Method 01/11/24 07:56 01/11/24 02:58 01/11/24 02:00 Room Air 01/11/24 01:42 01/11/24 01:37 01/11/24 01:22 01/11/24 01:18 01/11/24 01:08 01/11/24 00:59 01/11/24 00:49 01/11/24 00:45 01/11/24 00:40 01/11/24 00:28 01/11/24 00:18 01/11/24 00:15 01/11/24 00:08 01/11/24 00:00 01/10/24 23:58 01/10/24 23:48 01/10/24 23:45 01/10/24 23:38 01/10/24 23:30 01/10/24 23:28 01/10/24 23:18 01/10/24 23:15 01/10/24 23:09 01/10/24 23:07 01/10/24 23:04 01/10/24 23:02 01/10/24 23:00 01/10/24 22:57 01/10/24 22:52 01/10/24 22:50 01/10/24 22:45 01/10/24 22:45 01/10/24 22:45 01/10/24 22:40 01/10/24 22:39
[2024-01-11] MEDS: ACETAMINOPHEN 325 MG TAB PO PRN (10:56)
[2024-01-11] MEDS: BENZOCAINE 20% SPRY 85 APPLN/85 GM CAN EXT PRN (10:57)
[2024-01-11] MEDS: HYDROXYCHLOROQUINE SULFATE 200 MG TAB PO SCH (20:56)
[2024-01-11] MEDS: FAMOTIDINE 20 MG TAB PO SCH (20:56)
[2024-01-11] MEDS: bisacodyL 5 MG TABEC PO SCH (20:57)
[2024-01-12 06:53] LABS: Basophils # (auto) 0.08 K/uL (0.00-0.20); Basophils % (auto) 0.8 %; Hematocrit (blood only) 32.6 % (37.0-47.0); Hemoglobin 10.6 g/dl (12.0-16.0); Immature Granulocytes # (auto) 0.04 K/uL (0.01-0.20); Immature Granulocytes % (auto) 0.4 %; Lymphocytes % (auto) 39.6 %; Mean Corpuscular Hgb Conc 32.5 g/dL (32.0-36.0); Mean Corpuscular Volume 83.2 fL (80.0-100.0); Mean Platelet Volume 10.5 fL (9.4-12.4); Monocytes # (auto) 0.73 K/uL (0.11-0.59); Monocytes % (auto) 7.4 %; Neutrophils # (auto) 4.89 K/uL (1.40-6.50); Neutrophils % (auto) 49.8 %; Platelet Count 209 K/uL (130-400); RDW Coefficient of Variation 14.5 % (11.5-14.5); RDW Standard Deviation 43.6 fL (36.4-46.3); Red Blood Count 3.92 M/uL (4.20-5.40); White Blood Count 9.84 K/ul (4.8-10.8)
== END 2024-01-12 12:22 | disposition home or self-care (01) | DRG 806 ==
LOC: 4S1 01-10 07:55 → 4E2 01-11 02:14